=== PATIENT | female | born 1970 | race Caucasian/White ===

== ENCOUNTER → 2019-02-26 | Outpatient (CLI) | payer OTHER ==
[2019-02-26 13:38] LABS: BASO % 0.5 % (0.0-1.0); EOS # 0.2 10^3/uL (0.0-0.50); EOS % 2.9 % (0.0-3.0); HEMATOCRIT 45.2 % (36.0-47.0); LYMPH % 33.7 % (24.0-44.0); MEAN CORPUSCULAR HEMOGLOBIN 32.7 pg (27.0-33.0); MEAN CORPUSCULAR HGB CONC 33.2 g/dl (32.0-36.5); MEAN CORPUSCULAR VOLUME 98.5 fl (80.0-96.0); MONO # 0.6 10^3/uL (0.0-0.8); MONO % 9.9 % (0.0-5.0); NEUTROPHILS # 3.1 10^3/uL (1.8-7.7); NEUTROPHILS % 52.8 % (36.0-66.0); PLATELET COUNT, AUTOMATED 287 10^3/uL (150-450); RED BLOOD COUNT 4.59 10^6/uL (4.00-5.40); WHITE BLOOD COUNT 5.9 10^3/uL (4.0-10.0)
[2019-02-26 13:54] LABS: ALBUMIN 3.5 GM/DL (3.2-5.2); ALT/SGPT 31 U/L (12-78); AMYLASE 27 U/L (25-115); BILIRUBIN,TOTAL 0.4 MG/DL (0.2-1.0); BLOOD UREA NITROGEN 9 MG/DL (7-18); CARBON DIOXIDE LEVEL 28 MEQ/L (21-32); CHLORIDE LEVEL 107 MEQ/L (98-107); CREATININE FOR GFR 0.57 MG/DL (0.55-1.30); FREE T4 1.07 NG/DL (0.76-1.46); GLOMERULAR FILTRATION RATE > 60.0 (>58); GLUCOSE, FASTING 93 MG/DL (70-100); HCG, SERUM QUANTITATIVE < 1.0 MIU/ML; LIPASE 82 U/L (73-393); POTASSIUM SERUM 4.5 MEQ/L (3.5-5.1); SODIUM LEVEL 140 MEQ/L (136-145); TOTAL PROTEIN 7.4 GM/DL (6.4-8.2)
== END ==
LOC: M WUC 10:06
PROVIDERS: ATTEND Physician Assistant
DX: R10.84 Generalized abdominal pain (principal)

== ENCOUNTER → 2019-08-05 | Outpatient (REF) | payer OTHER ==
[2019-08-05 22:50] LABS: CHLAMYDIA DNA AMPLIFICATION NEGATIVE (NEGATIVE); GC DNA AMPLIFICATION NEGATIVE (NEGATIVE)
== END ==
LOC: M LAB REF 09:05
PROVIDERS: ATTEND Physician Assistant
DX: R10.30 Lower abdominal pain, unspecified (principal)

== ENCOUNTER → 2020-04-02 | Outpatient (CLI) | payer OTHER ==
[~2020-04-02] MED LIST: SYNT137T7 PO
== END ==
LOC: M LABSMTC 11:57
PROVIDERS: ATTEND Anesthesiology
DX: Z01.818 Encounter for other preprocedural examination (principal); Z11.59 Encounter for screening for other viral diseases
CPT/HCPCS: C9803; U0003

== ENCOUNTER 2020-04-05 09:16 | Day surgery (SDC) | payer OTHER ==
[~2020-04-05] VITALS: Ht 160 cm; Wt 73.9 kg
[2020-04-05] MEDS ORDERED: NS 1,000 ML IV ONE (09:30)
[2020-04-05] MEDS ORDERED: fentaNYL 100 MCG/2 ML INJECTION (J3010) As Ordered ONE (10:43)
--- NOTE | 2020-04-05 10:57 | ROOR ---
Patient Name: Ursula Celeste Procedure Date: 04/05/2020 10:41 AM Date of : 1970 Age: 49 Room: [facility] Gender: Female Note Status: Finalized Procedure: Upper Endoscopy + Biopsies Indications: Heartburn, Exclusion of Childs's esophagus Providers: Jeffy De Leon MD Referring MD: LUDMILA KNAPP DO Requestmariluz Provider: Medicines: Monitored Anesthesia Care Complications: No immediate complications. Procedure: Pre-Anesthesia Assessment: - The heart rate, respiratory rate, oxygen saturations, blood pressure, adequacy of pulmonary ventilation, and response to care were monitored throughout the procedure. The Endoscope was introduced through the mouth, and advanced to the second part of duodenum. The upper GI endoscopy was accomplished without difficulty. The patient tolerated the procedure well. Findings: The Z-line was variable and was found 41 cm from the incisors. Multiple biopsies were obtained with cold forceps for evaluation to rule out Childs's Esophagus randomly at the gastroesophageal junction. Localized minimal inflammation characterized by congestion (edema) and erosions was found in the gastric antrum. Biopsies were taken with a cold forceps for Helicobacter pylori testing. The exam of the duodenum was otherwise normal. Impression: - Z-line variable, 41 cm from the incisors. - Mucosal changes suspicious for gastritis. Biopsied. - Multiple biopsies were obtained at the gastroesophageal junction. - The examination was otherwise normal. Recommendation: - Patient has a contact number available for emergencies. The signs and symptoms of potential delayed complications were discussed with the patient. Return to normal activities tomorrow. Written discharge instructions were provided to the patient. - High fiber diet. - Discharge patient to home. - Follow an antireflux regimen. - Continue present medications. - Await pathology results. - Telephone GI clinic for pathology results in 1 week. - Return to referring physician. - The findings and recommendations were discussed with the patient. Jeffy De Leon MD Jeffy De Leon MD 04/05/2020 10:57:03 AM Electronically signed by Jeffy De Leon MD Number of Addenda: 0 Note Initiated On: 04/05/2020 10:41 AM Estimated Blood Loss: Estimated blood loss: none.
[2020-04-05] MEDS ORDERED: propofoL 200 MG/20 ML VIAL As Ordered ONE (11:07)
[2020-04-05] MEDS ORDERED: LIDOCAINE 2% 100MG/5ML SDV (FOR ANES.) As Ordered ONE (11:07)
--- NOTE | 2020-04-05 11:12 | ROOR ---
Patient Name: Ursula Celeste Procedure Date: 04/05/2020 10:42 AM Date of : 1970 Age: 49 Room: [facility] Gender: Female Note Status: Finalized Procedure: Total Colonoscopy to Cecum Indications: Screening for colorectal malignant neoplasm Providers: Jeffy De Leon MD Referring MD: LUDMILA KNAPP DO Requesting Provider: Medicines: Monitored Anesthesia Care Complications: No immediate complications. Procedure: Pre-Anesthesia Assessment: - The heart rate, respiratory rate, oxygen saturations, blood pressure, adequacy of pulmonary ventilation, and response to care were monitored throughout the procedure. The Colonoscope was introduced through the anus and advanced to the cecum, identified by appendiceal orifice and ileocecal valve. The colonoscopy was performed without difficulty. The patient tolerated the procedure well. The quality of the bowel preparation was excellent. Findings: The perianal and digital rectal examinations were normal. Non-bleeding internal hemorrhoids were found during retroflexion. The hemorrhoids were small and Grade I (internal hemorrhoids that do not prolapse). A few small-mouthed diverticula were found in the recto-sigmoid colon. The exam was otherwise without abnormality on direct and retroflexion views. Impression: - Non-bleeding internal hemorrhoids. - Diverticulosis in the recto-sigmoid colon. - The examination was otherwise normal on direct and retroflexion views. - No specimens collected. - The exam was otherwise normal to the cecum. Recommendation: - Patient has a contact number available for emergencies. The signs and symptoms of potential delayed complications were discussed with the patient. Return to normal activities tomorrow. Written discharge instructions were provided to the patient. - High fiber diet. - Discharge patient to home. - Continue present medications. - Repeat colonoscopy in 10 years for screening purposes. - Return to referring physician. - The findings and recommendations were discussed with the patient. Jeffy De Leon MD Jeffy De Leon MD 04/05/2020 11:11:56 AM Electronically signed by Jeffy De Leon MD Number of Addenda: 0 Note Initiated On: 04/05/2020 10:42 AM Estimated Blood Loss: Estimated blood loss: none.
[2020-04-05 11:40] VITALS: BP 177/87
== END 2020-04-05 11:56 | disposition home or self-care (01) ==
LOC: M OPP 09:16
PROVIDERS: ATTEND Internal Medicine Gastroenterology
DX: Z12.11 Encounter for screening for malignant neoplasm of colon (principal); K57.30 Diverticulosis of large intestine without perforation or abscess without bleeding; K64.0 First degree hemorrhoids; K22.8 Other specified diseases of esophagus; K31.89 Other diseases of stomach and duodenum; K21.9 Gastro-esophageal reflux disease without esophagitis; R12 Heartburn; E03.9 Hypothyroidism, unspecified; Z79.899 Other long term (current) drug therapy; Z88.0 Allergy status to penicillin; Z91.018 Allergy to other foods; Z87.891 Personal history of nicotine dependence
CPT/HCPCS: 43239; 45378; 88305; J3010

== ENCOUNTER → 2020-04-29 | Emergency (ER) | payer OTHER | END | disposition left against medical advice (07) | LOC: M ED 22:35 | DX: Z53.21 Procedure and treatment not carried out due to patient leaving prior to being seen by health care provider (principal) ==

== ENCOUNTER 2020-06-12 12:19 | Emergency (ER) | payer OTHER ==
[~2020-06-12] VITALS: Ht 160 cm; Wt 71.9 kg
[2020-06-12 13:15] LABS: BASO # 0.1 10^3/uL (0.0-0.2); BASO % 0.8 % (0.0-1.0); EOS # 0.2 10^3/uL (0.0-0.5); EOS % 2.9 % (0.0-3.0); HEMATOCRIT 48.2 % (36.0-47.0); HEMOGLOBIN 15.7 g/dl (12.0-15.5); LYMPH % 30.5 % (24.0-44.0); MEAN CORPUSCULAR HEMOGLOBIN 31.9 pg (27.0-33.0); MEAN CORPUSCULAR HGB CONC 32.6 g/dl (32.0-36.5); MONO # 0.6 10^3/uL (0.0-0.8); MONO % 8.5 % (0.0-5.0); NEUTROPHILS # 3.7 10^3/uL (1.5-8.5); NEUTROPHILS % 57.1 % (36.0-66.0); PLATELET COUNT, AUTOMATED 324 10^3/uL (150-450); RED BLOOD COUNT 4.92 10^6/uL (4.00-5.40); WHITE BLOOD COUNT 6.5 10^3/uL (4.0-10.0)
[2020-06-12 13:56] VITALS: BP 159/88
== END 2020-06-12 14:14 | disposition home or self-care (01) ==
LOC: M ED 12:19
DX: N93.9 Abnormal uterine and vaginal bleeding, unspecified (principal); E03.9 Hypothyroidism, unspecified; Z88.0 Allergy status to penicillin; Z79.890 Hormone replacement therapy

== ENCOUNTER 2020-11-17 12:36 | Emergency (ER) | payer OTHER ==
[~2020-11-17] VITALS: Ht 160 cm; Wt 72.9 kg
--- OUTSIDE RECORDS SUMMARY | 2020-11-17 12:45 | CCD | Continuity of Care Document ---
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 Name Role Phone Simona Jimenez MD Unavailable Unavailable Allergies, Adverse Reactions, Alerts Substance Reaction Status Criticality Penicillins Active No Information Medications Medication Instructions Dosage Effective Dates (start - stop) Sta tus Comments Tirosint 137 mcg capsule take 1 capsule by oral route every day 13 7 MCG - Active Problems Condition Effective Dates (start - stop) Clinical Status C omments Body mass index (BMI) 33.0-33.9, adult - Other sex counseling Human immunodeficiency virus [HIV] counseling Encounter for oth general cnsl and advice on contraception Encntr for hospital cna exam (general) (routine) w/o abn findings Encounter for test, result negative Encntr for hospital cna exam (general) (routine) w/o abn findings Encounter for screening for human papillomavirus (HPV) Encounter for screening for malignant neoplasm of cervix Encounter for oth general cnsl and advice on contraception Encounter for oth screening for malignant neoplasm of breast Human immunodeficiency virus [HIV] counseling Encounter for test, result negative Encntr screen for infections w sexl mode of transmiss High risk heterosexual behavior HPV - 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 [address] [place], [place], [id number], . tel:[phone] [facility], [address] [place] [address], [id number], [place] tel:[phone] [facility] Other sex counselin Martín immunodeficiency virus [HIV] counselingEncounter for oth general cnsl and advice on contraceptionEncntr for hospital cna exam (general) (routine) w/o abn findingsEncounter for test, result negativeBody mass index (BMI) 33.0- 33.9, adult [place]. [address] [place] [address], [id number], . tel:[phone] Referring Provider: Quiana Pratt, [address] [place] [address], [id number]. tel:[phone] [facility], [address] [place] [address], [id number], tel:[phone] [facility] Encntr for hospital cna exam (general) (routine) w/o abn findingsEncounter for screening for human papillomavirus (HPV)Encounter for screening for malignant neoplasm of cervixEncounter for oth general cnsl and advice on contraceptionEncounter for oth screening for malignant neoplasm of breastHuman immunodeficiency virus [HIV] counselingEncounter for test, result negativeEncntr screen for infections w sexl mode of transmissHigh risk heterosexual behavior Latia Smith. [address] [place] [address], [id number]. tel:[phone] Referring Provider: Sarah Jeffery, [address] [place] [address], [id number]. tel:[phone] Family History Family Member Diagnosis Age At Onset 1st degree relative No hx of venous thromboembolism 1st degree relative No hx of osteoporosis Mother Coronary heart disease before age 65 Brother Coronary heart disease before age 55 40 Mother Thyroid disorder Mother Heart disease Mother Cancer, breast 45 Brother Coronary heart disease before age 55 Mother Coronary heart disease before age 65 40 Mother Cancer, breast Mother Diabetes mellitus Immunizations Vaccine Date Status Comments No Information Payers Payer name Insurance type Covered green party ID Authorization(s ) [id number] Social History Type Description Quantity Date Captured Comments Alcohol Use Details Unknown Caffeine Use Details Unknown Tobacco Use Status No Information Smoking Status Former smoker Sex Female Vital Signs Date / Time: Height Weight BMI Pulse Rate Blood Pressure Temperatu re Respiratory Rate Body Surface Area Head Circumference BMI percentile Pulse Ox In haled Ox No Information Chief Complaint And Reason For Visit No Information Reason For Referral Reason For Referral No Information Plan Of Treatment Date Type Action Status Goal Dietary management education, gu idance, and counseling completed History Of Present Illness Encounter Date Complaint History Of Present I llness No Information Functional Status Date Functional Assessment No Information Medications Administered Medication Instructions Dosage Effective Dates (start - stop) Sta tus Comments No Information Instructions Date Instruction Additional Informati on Dietary management education, guidance, and counseling Related to Body mass index (BMI) 33.0-33.9, adult Assessments Type Assessment Date No Information Goals Health Concern Goal Type Priority Status Date No Information Medical Equipment Description Device [place] Device Identifier Effective Natanael es (start - stop) Status No Information Mental Status Date Cognitive Assessment No Information Health Concerns Observation Date No Information Concern Status Date No Information Physical Examination Exam Findings Details No Information
--- OUTSIDE RECORDS SUMMARY | 2020-11-17 12:45 | CCD ---
Author Author [facility] Organization Formerly [facility] Address [address] [place] [address] Phone Care Team Providers Care Care Management Specialist Name Role Phone Ludimla Weeks DO, PP [phone] Diego Gonsalez, SKIRT MAKER Unavailable [phone] Eliseo SORIANO, Japanese Unavailable [phone] Reason for Referral No Reason for Referral Recorded Problems Includes: Active, inactive, and resolved Problems All Visits Effective Date(s) Provider Condition Stat us Contact Dermatitis 08/26/2020 Cyril Rashad DIGGS Active Mammogram Inconclusive Due To Dense Breasts 04/16/2020 Steve Gupta DO Active Note: pt needs yearly sono a nd mammo Childs's Esophagus 04/08/2020 Ludmila Weeks DO Active Note: seen on EGD 04/05/20 Gastritis 04/08/2020 Ludmila Weeks DO Active Note: seen on EGD 04/05/20 Hemorrhoids Internal 04/08/2020 Ludmila Weeks DO Active Note: seen on colonoscopy Encounter for screening for malignant neoplasm of colon 03/24 Ludmila Weeks DO Active Note: last colonoscopy ; needs repeat in 10 years Dysplastic Nevus 03/09/2020 Ludmila Weeks DO Active Scabies 03/09/2020 Ludmila Samuels Ray DO Active Esophageal Reflux 11/24/2019 Ludmilatoro Weeks DO Active Anxiety Disorder Nos 02/28/2019 Ludmila Weeks DO Active Visit For: Screening Exam Malignant Neoplasm Breast 11/27/2017 Ludmila Weeks DO Active Screen Malignant Neoplasm Cervix 05/10/2017 Lara Palmer P Active Note: ; last pap smear ; HPV + Coronary Artery Disease 05/09/2016 Ludmila Weeks DO Active Note: exercise stress test o n 05/08/16 showed ischemia but no infarction; will be managed medically by cardiology; neg exercise stress test 06/22/20 Sprain Back 01/10/2016 - 02/28/2019 Ludmila Weeks DO Resolved Note: bent lifting a movers jessi and felt a pull/pain in paraspinal muscles. Noticed bruising over the sprained muscles- mildly tender on exam;; good rom. P: reassure. Activity as tolerated. Obesity 10/27/2015 Ludmila L Ray DO Active Vitamin D Deficiency 08/17/2015 Ludmila L Ray DO Active Arthralgia 04/08/2015 Ludmila L Ray DO Active Hearing Loss 04/08/2015 Ludmila L Ray DO Active Anaphylaxis 04/08/2015 Ludmila L Ray DO Active Note: PCN, strawberries and/ or cranberries?? Hyperlipidemia 04/08/2015 Ludmila L Ray DO Active Depression 02/20/2013 - 04/08/2015 Ludmila L Ray DO Resolved Note: Improved Gerd 05/24/2010 Ludmila L Ray DO Active Note: Unchanged Anxiety Disorder Due To General Medical Condition 04/12/2010 - 04/08/2015 Ludmila L Ray DO Resolved Note: Unchanged - 09/2014 -- pt admits to anxiety but refuses need for medications; feels she can control on her own with exercise, work things through on her own Hypertension (systemic) 04/12/2010 - 04/08/2015 Ludmila L Ray DO Resolved Note: Unchanged - Advised lo w sodium, low cholesterol diet - Last cardiac eval on 10-13-[address] Bustillo. Advised diet and exercise. FUP in 1 month. Continue current medications STRESS ECHO NORMAL 10-27-10. 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 Exam Wi th or without Pap Note: Please schedule patient with NURSING SERVICE ADMINISTRATOR i [facility] to establish for routine NURSING SERVICE ADMINISTRATOR care; [facility] Audiology Unspecified Hearing Loss Note: Please schedule patient with provi krunal Cardiology Chest pain, unspecif ied Note: Please schedule patient with provi krunal please refer for chest pain with abnl EKG. Family hx of CAD. 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 Note: Please schedule patient with provi krunal; prefers [place], for eval of mole near right ear lobe on face Future Appointments Date Time Location Provider Chronic Disease Follow-up 09/22/2020 11:00AM [facility] Ludmila Weeks DO Findings Encounter Date Instructions for patient Physical appe arance along with subjective complaint is consistent with possible contact dermatitis Avoid putting on make-up Start taking either ceterizine or loratidine If eye lids remain very itchy then try OTC hydrocortisone cream but make sure to not get in to your eyes If symptoms clear up in the next few days then it is most likely contact dermatitis, if symptoms do not clear up by sunday then you need to make an appointment to come in to the office in order to be physically seen for further assessment f/u at scheduled appontment of 09/22/30 unless symptoms do not resolve in the next few days Acute Telehealth Zoom with Cyril DIGGS 08/26/2020 Ordered return to the clinic if condition worsens or n ew symptoms arise Acute Telehealth Zoom with Cyril DIGGS 08/26/2020 Ordered Clinical summary transmitted to referring provider electronically with reasonable certainty of receipt or receiving provider electronically through [facility] Telehealth FaceTime with Lara Palmer NP 01/14/2020 Return to the clinic if condition worsens or new sympt oms arise Primary Care Telehealth FaceTime with Lara Palmer NP 01/14/2020 Ordered Clinical summary transmitted to referring provider electronically with reasonable certainty of receipt or receiving provider electronically through [facility] Walk-In with Ludmila Weeks DO 11/24/2019 Return to the clinic if condition worsens or new sympt oms arise Walk-In with Ludmila Weeks DO 11/24/2019 Ordered Clinical summary transmitted to referring provider electronically with reasonable certainty of receipt or receiving provider electronically through [facility] Chronic Disease Follow-up with Ludmila Abril Ray DO 09/05/2019 Return to the clinic if condition worsens or new sympt oms arise Chronic Disease Follow-up with Ludmila Abril Ray DO 09/05/2019 Instructions for patient Same Day Acute with Gisele Palmer P 05/12/2019 Ordered Clinical summary transmitted to referring provider electronically or receiving provider electronically through [employer] [facility] Same Day Acute with Gisele Molina CALKER 05/12/2019 Ordered follow-up visit Same Day Acute with Gisele Molina NP 05/12/2019 Ordered return to the clinic if condition worsens or n ew symptoms arise Same Day Acute with Gisele Molina NP 05/12/2019 Ordered Clinical summary transmitted to referring provider electronically or receiving provider electronically through [facility] Medication Follow-up with Ludmila Abril Weeks DO 02/28/2019 Return to the clinic if condition worsens or new sympt oms arise Medication Follow-up with Ludmila Abril Weeks DO 02/28/2019 Ordered Clinical summary transmitted to referring provider electronically or receiving provider electronically through [employer] Walk-In with Ludmila Abril Weeks DO 07/09/2018 Return to the clinic if condition worsens or new sympt oms arise Walk-In with Ludmila Weeks DO 07/09/2018 Ordered Clinical summary transmitted to referring provider electronically or receiving provider electronically through [employer] [facility] AHR with Ludmila Weeks DO 11/27/2017 Ordered Clinical summary transmitted to referring provider electronically or receiving provider electronically through [employer] [facility] Walk-In with Jojo Jack NP 11/08/2017 Ordered disposition - Patient or carecinthia childress was instructed in use of antipyretics and decongestants. Also, the patient is to return if there is persistnece of fever for more than 48 hours, pain or other new significant symptoms. Mucinex and tylenol prn Walk-In with Jojo Jack NP 11/08/2017 Ordered return to the clinic if condition worsens or n ew symptoms arise Walk-In with Jojo Jack NP 11/08/2017 Ordered Transition in care, clinical sum gisele provided electronically through [employer] [facility] Chronic Disease Follow-up with Ludmila Weeks DO 05/10/2017 Return to the clinic if condition worsens or new sympt oms arise Chronic Disease Follow-up with Ludmila Weeks DO 05/10/2017 Instructions for patient GET YOUR BL OODWORK DONE ORDERED BY DR. LUDMILA WEEKS. MAKE SURE THAT YOU KEEP YOUR FOLLOW UP APPOINTMENT WITH DR. WEEKS. IF YOU DEVELOP ANY CHEST PAIN THAT DOES NOT GO AWAY, CALL 911. Walk-In with Gisele Rosario NP 04/18/2016 Ordered return to the clinic if condition worsens or n ew symptoms arise Walk-In with Gisele Rosario NP 04/18/2016 Return to the clinic if condition worsens or new sympt oms arise Same Day Acute with Han Adams MD 01/10/2016 Return to the clinic if condition worsens or new sympt oms arise Chronic Disease Follow-up with Ludmila Weeks DO 10/27/2015 no added salt in diet stop taking blo od pressure at home for now keep f/u appt with PCP pt verbalizes agreement with plan of care Walk-In with Nancy Bird NP 10/20/2015 Ordered return to the clinic if condition worsens or n ew symptoms arise Walk-In with Nancy Bird NP 10/20/2015 Return to the clinic if condition worsens or new sympt oms arise Establish Care with Ludmila Weeks DO 04/08/2015 Return to the clinic if condition worsens or new sympt oms arise Medication Follow-up with Mariana Solorzano NP 10/15/2014 Return to the clinic if condition worsens or new sympt oms arise Establish Care with Mariana Solorzano NP 10/15/2013 PLEASE GET YOUR BLOODWORK DONE DISC USSED. MAKE SURE YOU MAKE AN APPOINTMENT TO ESTABLISH CARE WITH ANOTHER PROVIDER HERE Walk-In with Gisele Rosario NP 09/02/2013 Ordered return to the clinic if condition worsens or n ew symptoms arise Walk-In with Gisele Rosario NP 09/02/2013 Return to the clinic if condition worsens or new sympt oms arise Develop Walk-In with Gisele Rosario NP 09/02/2013 Ordered return to the clinic if condition worsens or n ew symptoms arise M Same Day with Han Adams MD 08/30/2013 Low sodium, Low cholesterol diet advis ed Continue exercise Continue thyroid medication FUP in 3months Medication Follow-up with Courtney palmer NP 02/18/2013 Ordered follow-up visit 4 months Medication Follow-up with Courtney Hernandez NP 02/18/2013 Ordered return to the clinic if condition worsens or n ew symptoms arise Medication Follow-up with Courtney Hernandez NP 02/18/2013 Labs as ordered Script for mammo gi adrián to patient [facility] Continue diet and exercise. RTO in 3 months Medication Refill with Courtney Hernandez NP 11/19/2012 Ordered return to the clinic if condition worsens or n ew symptoms arise Medication Refill with Courtney Hernandez NP 11/19/2012 I have spent 30 minutes with allyson hunter benítez in regards to her anxiety and depression. I have recommended counseling but she refuses. She is not interested in anti-depressants at this time. She has her sister for support and feels like she can get through this on her own. I have given her a script to have fasting labs completed prior to next visit. Continue current meds. FUP in 3 months See updated prob list for additional details of todays visit 30 minutes with Courtney Hernandez NP 06/20/2012 Ordered follow-up visit 3 months 30 minutes with Courtney Hernandez NP 06/20/2012 Ordered return to the clinic if condition worsens or n ew symptoms arise 30 minutes with Courtney Hernandez NP 06/20/2012 Denies any need for anxiety medication s at this time- states she can usually get calmed down on own by going for walks or getting out of house. Patient encouraged to continue relaxation techniques. Patient will get bloodwork done and will be seen back in 6 months, sooner if need arises. Instructed that if her sinus symptoms do not improve over next 5-7 days or she begins to develop symptoms of green/yellow nasal drainage or fever >100.5 to call and come back for appt. See updated prob list for details of todays visit M 20 Minutes with Courtney Hernandez NP 10/31/2011 Ordered follow-up visit M 20 Minutes with Courtney Hernandez NP 10/31/2011 Ordered return to the clinic if condition worsens or n ew symptoms arise M 20 Minutes with Courtney Hernandez NP 10/31/2011 WILL INCREASE SYNTHROID AND REDRAW TS H IN 6 WEEKS. CONTINUE FISH OIL 1000 MG PO DAILY CONTINUE TO MONITER DIET AND INCREASE EXERCISE. ADVISED TO WEAR HARD SOLED SHOE. PATIENT DOES NOT WANT X-RAY AT THIS TIME. ADVSIED TO USE IBUPROFEN PRN PAIN. CALL THE OFFICE IF SYMPTOMS WORSEN OR DO NOT IMPROVE M 20 Minutes with Courtney Hernandez NP 05/04/2011 Ordered follow-up visit 6 MONTHS M 20 Minutes with Courtney Hernandez NP 05/04/2011 Ordered return to the clinic if condition worsens or n ew symptoms arise M 20 Minutes with Courtney Hernandez NP 05/04/2011 I believe that Ursula's left chest wa ll pain is musculoskeletal as it seems to be improving over the past week. I advised Ursula to start Motrin 600 mg PO TID x 5 days and apply heat to the left chest wall for 20 minutes four times per day. I will refer Ursula to cardiology for a work up due to her history of hypertension, past smoking history, obesity as well as family history of heart d isease. Ursula will call the office if left chest pain does not continue to improve. SHe is aware that if she develops severe chest pain, sob, diaphoresis etc she should call 911 and report to the emergency room 30 minutes with Courtney Hernandez NP 09/30/2010 Ordered follow-up visit 6 weeks as scheduled 30 minut es with Courtney Hernandez NP 09/30/2010 Ordered return to the clinic if condition worsens or n ew symptoms arise 30 minutes with Courtney Hernandez NP 09/30/2010 Monitor diet and increase exercise. New script for TSH given to patient so that results maximilian be CC to me from [facility]. I will review TSH when available and adjust meds if necessary M 20 Minutes with Courtney Hernandez NP 09/09/2010 Ordered follow-up visit M 20 Minutes with Courtney Hernandez NP 09/09/2010 Ordered return to the clinic if condition worsens or n ew symptoms arise M 20 Minutes with Courtney Hernandez NP 09/09/2010 Renew Epipen. GERD- stay upright f or at least 30 minutes after eating. Avoid spicy foods. Constipation - Increase fluids. Start using a stool softener daily. Calloused heels - Suggested Pumice stone and wrapping feet in vaseline at night. Avoid flip flops when working. Will call patient with TSH results from today when available. Patient requests that a message be left on her cell [phone]. If a change is necessary with thyroid medication I will call into [facility] in [place], 30 minutes with Courtney Hernandez NP 05/23/2010 Obtain blood work as ordered Monito r blood pressure at home with given blood pressure card. Refer to Endocrinology. Discuss pap and mammo at next visit RTO in 1 week to follow up on labs and well women care 30 minutes with Matilde Molina NP 04/12/2010 Ordered a lipid profile 30 minutes with Matilde Molina NP 04/12/2010 Ordered CBC CMP 30 minutes with Matilde Molina NP 03/25 Ordered serum TSH level 30 minutes with Matilde Molina NP 04/12/2010 Assessments Includes: Assessments for all patient encounters Findings Encounter Date Contact dermatitis Acute Telehealth Zoom with Cyril DIGGS 08/26/2020 Assessment of mammogram inconclusive due to dense mary carmen sts Referral Order with Ludmila Weeks DO 04/16/2020 Assessment of visit for: screening for m alignant breast neoplasm Patient was advised that she needs to schedule herself for a mammogram. We will mail her an order for the mammogram and she can have it done at her earliest convenience Primary Care Telehealth FaceTime with Ludmila Weeks DO 03/09/2020 Coronary artery disease Patient had a s lightly abnormal stress test 4 years ago. She is completely asymptomatic. I advised that she have follow-up with cardiology for further evaluation Primary Care Telehealth FaceTime with Aranza Weeks DO 03/09/2020 Dysplastic nevus I advised that the mol e near patient's right earlobe is suspicious for possible skin cancer. I recommended a referral to dermatology for biopsy and evaluation Primary Care Telehealth FaceTime with Ludmila Weeks DO 03/09/2020 Esophageal reflux Patient's reflux symp toms have improved with decrease stress in her life, and weight loss and dietary changes and a change in her eating habits such as not eating late at night anymore. She rarely requires omeprazole now. She did have to reschedule her GI appointment from the end of January to the beginning of March due to work conflicts Primary Care Telehealth FaceTime with Ludmila Weeks DO 03/09/2020 Hypothyroidism On replacement therapy. Patient is due to have lab work which has been ordered. I requested the patient have her lab work done. Patient has a long history of noncompliance with medical appointments and lab work orders Primary Care Telehealth FaceTime with Ludmila Weeks DO 03/09/2020 Scabies I advised treatment with permet hrin topically. I instructed patient on how to apply this medication and to leave it on for 8 hours before washing it off. Patient was advised if the itching and rash do not completely resolve within 1 week of after using the topical permethrin that she contact my office. Greater than 40 minutes video conferencing with patient today due to the coronavirus pandemic Primary Care Telehealth FaceTime with Ludmila Weeks DO 03/09/2020 Impetigo Primary Care Telehealth FaceTime with Argelia Palmer NP 01/14/2020 Esophageal reflux I advised low acid diet. I advised to discontinue ranitidine and start omeprazole 40 mg twice daily for 2 weeks then decrease the dose to 40 mg once a day for 2 weeks. I recommended lab work today to check for anemia to make sure there is no GI bleed. I recommended testing for H. pylori. I recommended she see GI for an upper endoscopy procedure to look for a cause for severe reflux symptoms and to rule out a possible stomach ulcer. I recommended she call my office if she is not feeling any better in 2 weeks or if she develops any worsening epigastric pain Walk-In with Ludmila Weeks DO 11/24/2019 Hyperlipidemia Chronic Disease Follow-up with Ludmila Weeks DO 09/05/2019 Hypothyroidism Chronic Disease Follow-up with Ludmila Weeks DO 09/05/2019 Screen malignant neoplasm cervix Pat ient was asked to have fasting lab work done. She is on thyroid replacement therapy and needs her thyroid levels repeated. We will try to request her last Pap smear that [facility] in [place]. She was again reminded to have her mammogram done which she states she already has an order for. She requested prescription strength ibuprofen for headache she gets usually about once a month near the time of her period. She states that ibuprofen usually takes care of it Chronic Disease Follow-up with Ludmila Weeks DO 019 Anxiety disorder NOS Same Day Acute with Gisele Molina NP GERD Same Day Acute with Gisele Molina CALKER Hypothyroidism Same Day Acute with Wilma Jesse KAUFFMAN Palpitations Same Day Acute with Gisele Valencia Jesse KAUFFMAN Anxiety disorder NOS Patient is under q uite a bit of stress recently. She agrees that it is related to her work and her current family situation with her ex-. She believes that it will resolve. She is currently looking for another job. She does not want any medication for her anxiety at this point. She will let me know if her symptoms do not resolve on their own in the short future Medication Follow-up with Ludmila Weeks DO 02/28/2019 Coronary artery disease ; asymptomatic currently Medic ation Follow-up with Ludmila Weeks DO 02/28/2019 GERD clnically resolved, not taking any medications M edication Follow-up with Ludmila Weeks DO 02/28/2019 Hypothyroidism asymptomatic, on thyroid medications. SHe had labs done at urgent care yesterday, which I've requested Medication Follow-up with Ludmila Weeks DO 02/28/2019 Obesity discussed need for weight loss Medication Fol low-up with Ludmila Weeks DO 02/28/2019 Anaphylaxis Patient was advised to h ave her mammogram scheduled as soon as possible. Patient was advised to start back on omeprazole for her acid reflux symptoms and let me know if this is not helping. Patient was advised to make dietary modifications to help keep her cholesterol controlled. Patient was advised to increase her Synthroid dose from 125 mcg daily to 137 mcg daily. She was advised to have her blood work rechecked in 1 month. Patient was given a new prescription for an EpiPen and I reviewed to her how and when to use it Walk-In with Ludmila Weeks DO 07/09/2018 Assessment of visit for: screening for malignant breas t neoplasm Walk-In with Ludmila Weeks DO 07/09/2018 GERD Walk-In with Ludmila Weeks DO 07/09/2018 Hyperlipidemia Walk-In with Ludmila Weeks DO 07/09/2018 Hypothyroidism Walk-In with Ludmila Weeks DO 07/09/2018 Assessment of visit for: screening for m alignant breast neoplasm Patient was advised to schedule and have her mammogram done as soon as possible; patient has not had one since 2014 and her mom had breast cancer AHR with Ludmila Weeks DO 11/27/2017 Hyperlipidemia will repeat labs AHR with Ludmila Weeks DO Hypothyroidism on replacement therapy , will check la bs AHR with Ludmila Weeks DO 11/27/2017 Obesity Discussed need to lose weight AHR with Ludmila Samuels Ray DO 11/27/2017 Visit for: routine adult H&P AHR with Ludmila Weeks DO 2017 Sinusitis Walk-In with Jojo Jack NP 018 Coronary artery disease Patient was adv ised to make an appt with cardiology for follow-up because she has not seen them since last year Chronic Disease Follow- up with Ludmila Samuels Ray 05/10/2017 GERD controlled on omeprazole Chronic Disease Follow-up wit h Ludmila Weeks DO 05/10/2017 Hypothyroidism on thyroid replacement, will check lab s Chronic Disease Follow- up with Ludmila Weeks DO 05/10/2017 GERD I advised patient eat a low acid d iet and increase her omeprazole from 20mg to 40mg daily. I adivsed if this does not help her throat symptoms, to call and let me know in 2 weeks AHR with Ludmila Weeks 04/28/2016 Hypothyroidism on thyroid replacment therapy AHR with Bisi carolyn Samuels Micky AGRAWAL 04/28/2016 Visit for: routine adult H&P AHR with Ludmila Samuels Micky AGRAWAL 2015 Vitamin D deficiency I advised Vit D replacement once weekly AHR with Ludmila Weeks DO 04/28/2016 Hypothyroidism Chart Update with Ludmila Weeks DO 2015 Abnormal electrocardiogram Walk-In with Gisele griffin NP 04/18/2016 Chest pain Walk-In with Gisele Rosario NP 04/18/2016 Hypothyroidism Walk-In with Gisele Rosario NP 04/18/2016 Overanxious disorder Walk-In with Gisele Rosario NP 04/18/2016 Hypothyroidism Chart Update with Ludmila Samuels Micky AGRAWAL 2015 Vitamin D deficiency Chart Update with Ludmila L Ray DO 02/16 Lower back sprain Same Day Acute with Han Adams MD Sprain of the back bent lifting a manager treasury s jessi and felt a pull/pain in paraspinal muscles. Noticed bruising over the sprained muscles- mildly tender on exam;; good rom. P: reassure. Activity as tolerated Same Day Acute with Han Adams MD 01/10/2016 Bronchitis Walk-In with Martinez Valencia Emily BASSETT-C 12/23 Sinusitis Walk-In with Martinez Valencia Emily COOPER 12/23 GERD stable Chronic Disease Follow-up with Ludmila Samuels Micky AGRAWAL 10/27/2015 Hyperlipidemia well controlled Chronic Disease Follow-up wi th Ludmila Samuels Micky AGRAWAL 10/27/2015 Hypothyroidism well controlled on thyro id replacement therapy I reassured patient that it is OK for her heart rate to go up when exercising. I advised her that if it went up to 140-150 that would be ok. I advised her that if she experiences any chest pain while exercising, she needs to stop right away and call 911 and go to the emergency room Chronic Disease Follow-up with Ludmila Abril Weeks DO 10/27/2015 Obesity Chronic Disease Follow-up with Ludmila Samuels Micky AGRAWAL 10/27/2015 Vitamin D deficiency will check labs next visit Chron ic Disease Follow-up with Ludmila Abril Weeks DO 10/27/2015 Isolated elevated blood pressure reading Walk-In with Joelle Bird NP 10/20/2015 Vitamin D deficiency Chart Update with Ludmila Samuels Micky DO 08/17 GERD Chart Update with Ludmila Weeks DO 2014 Hyperlipidemia Chart Update with Ludmila Weeks DO 2014 Hypothyroidism Chart Update with Ludmila Abril Weeks DO 2014 Anaphylaxis see below. 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 Establish Care with Ludmila L Micky AGRAWAL 04/08/2015 GERD controlled on current medicaiton Establish Care with A art Weeks DO 04/08/2015 Hearing loss advised referal to audiology for hearing eval Establish Care with Ludmila Abril Weeks DO 04/08/2015 Hyperlipidemia will check labs Establish Care with Ludmila Weeks DO 04/08/2015 Hypothyroidism asymptomatic, will check thyroid levels and patient will need refill of her medicaiton after her blood work comes back Establish Care with Ludmila Weeks DO 04/08/2015 Anxiety disorder due to general medical condition Medi cation Follow-up with Mariana Solorzano NP 10/15/2014 GERD Medication Follow-up with Mariana Solorzano NP 10/15/2014 Hypertension Medication Follow-up with Mariana Solorzano NP 10/15/2014 Hypothyroidism Medication Follow-up with Mariana Solorzano NP 10/15/2014 Anxiety disorder due to general medical condition Lou pintoish Care with Mariana Solorzano NP 10/15/2013 Assessment of depression Establish Care with Mariana Solorzano NP 10/15/2013 Hypertension Establish Care with Mariana Solorzano NP Hypothyroidism Establish Care with Mariana Solorzano NP Acute pharyngitis streptococcus Walk-In with She Maximilian Rosario NP 09/02/2013 Hypothyroidism Walk-In with Gisele Duron Mich Rosario NP 09/02/2013 Acute viral tonsillitis with bad pain i n throat with swallowing. P: viscous xylocaine gargles, prednisone for just 2 days. Naproxen M Same Day with Han Adams MD 08/30/2013 Depression - pt feels controlled at this time- will c onitnue to moniter Medication Follow-up with Courtney Hernandez CALKER 02/18/2013 GERD Medication Follow-up with Courtney Garciao n CALKER 02/18/2013 Hypothyroidism Medication Follow-up with Courtney Moy Gigo n CALKER 02/18/2013 Anxiety disorder due to general medical condition Medi cation Refill with Courtney Garciaon CALKER 11/19/2012 GERD Medication Refill with Courtney Moy Gigon N P 11/19/2012 Hypertension Medication Refill with Courtney M Gigon N P 11/19/2012 Hypothyroidism Medication Refill with Courtney M Gigon N P 11/19/2012 Anxiety disorder due to general medical condition 30 m inutes with Courtney M Gigon CALKER 06/20/2012 GERD 30 minutes with Courtney M Gigon CALKER 06/20 Hypothyroidism 30 minutes with Courtney M Gigon CALKER 06/20 Generalized anxiety disorder M 20 Minutes with Courtney M Gig on CALKER 10/31/2011 Hyperlipidemia M 20 Minutes with Courtney M Gigon CALKER 03/2012 Hypothyroidism M 20 Minutes with Courtney M Gigon CALKER 03/2012 Hyperlipidemia M 20 Minutes with Courtney M Gigon CALKER 07/2011 Hypothyroidism M 20 Minutes with Courtney M Gigon CALKER 07/2011 Plantar fasciitis M 20 Minutes with Courtney M Gigon CALKER 07/2011 Hypertension 30 minutes with Courtney M Gigon CALKER 09/30 Hypothyroidism 30 minutes with Courtney Hernandez CALKER 09/30 Pectoralis minor sprain 30 minutes with Courtney Hernandez CALKER 0 09/30/2010 Hypothyroidism M 20 Minutes with Courtney Garciaon CALKER Generalized anxiety disorder 30 minutes with Courtney Hernandez CALKER 05/23/2010 GERD 30 minutes with Courtney Garciaon CALKER 05/23 Hypothyroidism 30 minutes with Courtney Hernandez CALKER 05/23 Anxiety disorder due to general medical condition 30 m inutes with Matilde Velezizabel CALKER 04/12/2010 Hypertension 30 minutes with Matilde Patiñoestela CALKER 03/25 Hypothyroidism 30 minutes with Matilde Patiñoestela CALKER 03/25 Instructions Instructions not supported for this document typeNo Instructions Recorded Medical Equipment - Implanted Devices Includes: Current and historical DevicesNo Medical Equipment Recorded Medications Includes: Current and historical Medications Current Medications (continue as prescribed) Synthroid 137 MCG Oral Tablet 08/13/2020 Provider: Lara Palmer NP Diagnosis: Hypothyroidism, unsp ecified Take once a day, DIMA, 1 tablet 30 minutes before breakfast Mupirocin 2% External Ointment 01/14/2020 Provider: Lara Palmer NP Diagnosis: Impetigo, unspecifie d as directed; apply three times daily to affected area for 5 days Ibuprofen 600 MG Oral Tablet 10/07/2019 Provider: Ludmila Weeks DO Diagnosis: as directed; 1 tab PO daily PRN CARRANZA; with food EPINEPHrine 0.3 MG/0.3ML Injection Solution Auto-injector Provider: Ludmila Weeks DO Diagnosis: as directed; 1 vial IM at onset of anaphylaxis, then call 91 [facility] Omeprazole 20MG Oral Tablet Delayed Release 05/12/2019 Provider: Gisele Molina NP Diagnosis: Gastro-esophageal re flux disease without esophagitis once a day Multivitamins Tablet 04/18/2016 Provider: Diagnosis: OTC Past Medications on file Permethrin 5% External Cream 03/09/2020 - 03/10/2020 Provide r: Ludmila Weeks DO Diagnosis: Scabies apply topically from head to soles of fe et, leave on for 8 hours, then rinse off, avoid face and genitals; disp largest bottle Synthroid 137 MCG Oral Tablet 12/09/2019 - 08/13/2020 Provid er: Ludmila Weeks DO Diagnosis: Hypothyroidism, unsp ecified Take once a day, DIMA, 1 tablet 30 minutes before breakfast Ondansetron 8 MG Oral Tablet Disintegrating 11/26/2019 - 05/2020 Provider: Ludmila Weeks DO Diagnosis: three times a day; PRN nausea Omeprazole 40 MG Oral Capsule Delayed Release 11/24/2019 - 0 12/24/2019 Provider: Ludmila Weeks DO Diagnosis: Gastro-esophageal re flux disease without esophagitis as directed; 1 tab PO bid x 14 days, then one tab PO daily Ibuprofen 600 MG Oral Tablet 09/05/2019 - 10/07/2019 Provide r: Ludmila Weeks DO Diagnosis: as directed; 1 tab PO daily PRN CARRANZA; with food raNITIdine HCl 150MG Oral Tablet 05/12/2019 - 09/05/2019 Pro vider: Gisele Molina NP Diagnosis: Gastro-esophageal re flux disease without esophagitis twice a day EPINEPHrine 0.3MG/0.3ML Injection Solution Auto-inject or 02/28/2019 - 09/05/2019 Provider: Ludmila Weeks DO Diagnosis: as directed; 1 vial IM at onset of anaphylaxis, then call 91 1 Synthroid 137MCG Oral Tablet 02/14/2019 - 12/09/2019 Provide r: Han Adams MD Diagnosis: Hypothyroidism, unsp ecified Take once a day, DIMA, 1 tablet 30 minutes before breakfast Synthroid 137 MCG OR TABS 02/14/2019 - 02/28/2019 Provider: Diagnosis: Hypothyroidism, unsp ecified Take once a day, DIMA, 1 tablet 30 minutes before breakfast Synthroid 137MCG Oral Tablet 09/10/2018 - 02/28/2019 Provide r: Ludmila Weeks DO Diagnosis: Hypothyroidism, unsp ecified once a day; DIMA; 1 tab 30 min before breakfast Synthroid 137MCG Oral Tablet 07/09/2018 - 09/10/2018 Provide r: Ludmila Weeks DO Diagnosis: Hypothyroidism, unsp ecified once a day; DIMA; 1 tab 30 min before breakfast EPINEPHrine 0.3MG/0.3ML Injection Solution Auto-inject or 07/09/2018 - 02/28/2019 Provider: Ludmila Weeks DO Diagnosis: as directed; 1 vial IM at onset of anaphylaxis, then call 91 1 Omeprazole 20MG Oral Capsule Delayed Release 07/09/2018 - Provider: Ludmila Weeks DO Diagnosis: 2 once a day Synthroid 125MCG Oral Tablet 07/03/2018 - 09/10/2018 Provide r: Ludmila Weeks DO Diagnosis: once a day Dispense as Written Omeprazole 20MG Oral Capsule Delayed Release 01/30/2018 - Provider: Ludmila Weeks DO Diagnosis: 2 once a day Synthroid 125MCG Oral Tablet 11/12/2017 - 07/03/2018 Provide r: Jojo Jack CALKER Diagnosis: once a day Dispense as Written Biaxin 500MG Oral Tablet 11/08/2017 - 11/27/2017 Provider: Jojo Jack CALKER Diagnosis: twice a day Synthroid 125MCG Oral Tablet 03/29/2017 - 11/12/2017 Provide r: Ludmila Weeks DO Diagnosis: once a day Dispense as Written Synthroid 125 MCG Tablet 08/11/2016 - 03/29/2017 Provider: Ludmila Weeks DO Diagnosis: once a day Dispense as Written EpiPen 2-Enoc 0.3 MG/0.3ML Solution Auto-injector 04/28/2016 - 07/09/2018 Provider: Ludmila Weeks DO Diagnosis: Anaphylactic shock, unspecified, initial encounter as directed; inject IM x 1 at onset of a naphylaxis, then call 911 for emergent transport to closest emergency room Omeprazole 20 MG Capsule, delayed-release 04/28/2016 - 01/30 Provider: Ludmila Weeks DO Diagnosis: 2 once a day Vitamin D3 91234 UNIT Capsule, conventional 04/28/2016 - 02/2018 Provider: Ludmila Weeks DO Diagnosis: Vitamin D deficiency , unspecified as directed ; one tab PO weekly on Sunday Synthroid 125 MCG Tablet 04/20/2016 - 08/11/2016 Provider: Ludmila Weeks DO Diagnosis: once a day Dispense as Written Synthroid 125 MCG Tablet 04/20/2016 - 04/28/2016 Provider: Diagnosis: Dispense as Written Synthroid 125 MCG Tablet 04/20/2016 - 04/20/2016 Provider: Ludmila Weeks DO Diagnosis: once a day Synthroid 137 MCG Tablet 03/21/2016 - 04/28/2016 Provider: Ludmila Weeks DO Diagnosis: TAKE 1 TABLET BY MOUTH EVERY DAY Biaxin 500 MG Tablet 01/03/2016 - 04/28/2016 Provider: Martinez Diaz RPA-C Diagnosis: 1 bid Vitamin D3 97612 UNIT Capsule 08/24/2015 - 04/28/2016 Provid er: Ludmila Abril Weeks DO Diagnosis: as directed; 1 tab PO weekly on Sundays Synthroid 137 MCG Tablet 08/24/2015 - 03/21/2016 Provider: Ludmila Weeks DO Diagnosis: TAKE 1 TABLET BY MOUTH EVERY DAY Vitamin D3 28730 UNIT Capsule 08/20/2015 - 08/24/2015 Provid er: Ludmilatoro Weeks DO Diagnosis: as directed; 1 tab PO weekly on Sundays Synthroid 137 MCG Tablet 05/14/2015 - 08/24/2015 Provider: Ludmila Weeks DO Diagnosis: TAKE 1 TABLET BY MOUTH EVERY DAY Omeprazole 20 MG Capsule, delayed-release 04/08/2015 - 04/28 Provider: Ludmila Weeks DO Diagnosis: once a day EpiPen 2-Enoc 0.3 MG/0.3ML Solution Auto-injector 04/08/2015 - 04/28/2016 Provider: Ludmila Weeks DO Diagnosis: Other Anaphylactic S hock Not Elsewhere Classified as directed; inject IM x 1 at onset of a naphylaxis, then call 911 for emergent transport to closest emergency room Omeprazole 20 MG Capsule, delayed-release 10/29/2014 - 04/08 Provider: Mariana Solorzano NP Diagnosis: once a day Synthroid 137 MCG Tablet 10/15/2014 - 05/14/2015 Provider: Mariana Solorzano NP Diagnosis: TAKE 1 TABLET BY MOUTH EVERY DAY Synthroid 137 MCG OR TABS 09/25/2014 - 10/15/2014 Provider: Ludmila Weeks DO Diagnosis: TAKE 1 TABLET BY MOUTH EVERY DAY Synthroid 137 MCG OR TABS 07/28/2014 - 09/25/2014 Provider: Mariana Solorzano NP Diagnosis: TAKE 1 TABLET BY MOUTH EVERY DAY Synthroid 137 MCG OR TABS 05/26/2014 - 07/28/2014 Provider: Ludmila Weeks DO Diagnosis: DIMA Synthroid 137 MCG OR TABS 04/18/2014 - 05/26/2014 Provider: Han Adams MD Diagnosis: DIMA Synthroid 137 MCG OR TABS 04/17/2014 - 04/17/2014 Provider: Han Adams MD Diagnosis: Synthroid 125 MCG OR TABS 03/19/2014 - 04/17/2014 Provider: Mariana Solorzano NP Diagnosis: Unspecified Acquired Hypothyroidism pt must have DIMA Synthroid 125 MCG OR TABS 01/22/2014 - 03/19/2014 Provider: Mariana Solorzano NP Diagnosis: Unspecified Acquired Hypothyroidism pt must have DIMA EpiPen 2-Enoc 0.3 MG/0.3ML IJ CINDY 12/24/2013 - 11/08/2017 Pr ovider: Mariana Solorzano NP Diagnosis: Allergy, other than to medicinal agents Use as directed - for strawberry / cranberry allergy Synthroid 125 MCG OR TABS 11/26/2013 - 12/24/2013 Provider: Mariana Solorzano NP Diagnosis: Unspecified Acquired Hypothyroidism pt must have DIMA Synthroid 125 MCG OR TABS 10/02/2013 - 11/26/2013 Provider: Mariana Solorzano NP Diagnosis: Unspecified Acquired Hypothyroidism pt must have DIMA Sandoval-Tab 250 MG OR TBEC 09/02/2013 - 10/15/2013 Provider: Gisele Rosario NP Diagnosis: Synthroid 125 MCG OR TABS 09/02/2013 - 10/02/2013 Provider: Mariana Solorzano NP Diagnosis: Unspecified Acquired Hypothyroidism Multivitamins OR TABS 08/30/2013 - 04/18/2016 Provider: Diagnosis: OTC Lidocaine Viscous 2% MT SOLN 08/30/2013 - 10/15/2013 Provide r: Han Adams MD Diagnosis: Tonsillitis, Acute 1 tsp gargle and spit/swallow q 1 - 2 h prn pain; be careful of choking while numbness remains Naproxen 250 MG OR TABS 08/30/2013 - 10/15/2013 Provider: Han Adams MD Diagnosis: Tonsillitis, Acute Take one tablet twice per day as needed-avoid if stomach irr itation// otc predniSONE 10 MG OR TABS 08/30/2013 - 10/15/2013 Provider: Han Adams MD Diagnosis: Tonsillitis, Acute Synthroid 125 MCG OR TABS 03/31/2013 - 10/15/2013 Provider: Courtney Hernandez NP Diagnosis: Unspecified Acquired Hypothyroidism Synthroid 125 MCG OR TABS 02/24/2013 - 03/31/2013 Provider: Courtney Hernandez NP Diagnosis: Multivitamins OR TABS 02/18/2013 - 08/30/2013 Provider: Diagnosis: OTC Synthroid 125 MCG OR TABS 01/22/2013 - 02/24/2013 Provider: Courtney Hernandez NP Diagnosis: Synthroid 125 MCG OR TABS 11/20/2012 - 01/22/2013 Provider: Courtney Hernandez NP Diagnosis: Synthroid 150 MCG OR TABS 11/19/2012 - 11/20/2012 Provider: Courtney Hernandez NP Diagnosis: Unspecified Acquired Hypothyroidism 1 tab po daily EpiPen 2-Enoc 0.3 MG/0.3ML IJ CINDY 11/19/2012 - 12/24/2013 Pr ovider: Courtney Hernandez NP Diagnosis: Allergy, other than to medicinal agents Use as directed - for strawberry / cranberry allergy Synthroid 150 MCG OR TABS 09/10/2012 - 11/19/2012 Provider: Courtney Hernandez NP Diagnosis: Unspecified Acquired Hypothyroidism 1 tab po daily Synthroid 150 MCG OR TABS 06/20/2012 - 09/10/2012 Provider: Courtney Hernandez NP Diagnosis: Unspecified Acquired Hypothyroidism 1 tab po daily Omeprazole 20 MG OR TBEC 06/20/2012 - 10/15/2014 Provider: Courtney Hernandez NP Diagnosis: Esophageal Reflux 1 tab by mouth daily Omeprazole 20 MG OR TBEC 05/14/2012 - 06/20/2012 Provider: Courtney Hernandez NP Diagnosis: Esophageal Reflux 1 tab by mouth daily Synthroid 150 MCG OR TABS 04/24/2012 - 06/20/2012 Provider: Courtney Hernandez NP Diagnosis: Unspecified Acquired Hypothyroidism 1 tab po daily Synthroid 150 MCG OR TABS 11/17/2011 - 04/24/2012 Provider: Courtney Hernandez NP Diagnosis: Unspecified Acquired Hypothyroidism 1 tab po daily Fish Oil 1000 MG OR CAPS 10/31/2011 - 06/20/2012 Provider: Diagnosis: OTC Omeprazole 20 MG OR TBEC 10/31/2011 - 05/14/2012 Provider: Courtney Hernandez NP Diagnosis: Esophageal Reflux 1 tab by mouth daily Multivitamins OR TABS 10/31/2011 - 02/18/2013 Provider: Diagnosis: OTC Synthroid 137 MCG OR TABS 09/27/2011 - 11/17/2011 Provider: Courtney Hernandez NP Diagnosis: Omeprazole 20 MG OR TBEC 05/04/2011 - 10/31/2011 Provider: Courtney Hernandez NP Diagnosis: Esophageal Reflux 1 tab by mouth daily Synthroid 125 MCG OR TABS 05/04/2011 - 09/27/2011 Provider: Courtney Hernandez NP Diagnosis: Unspecified Acquired Hypothyroidism 1 tab po daily Omeprazole 20 MG OR TBEC 03/09/2011 - 05/04/2011 Provider: Courtney Hernandez NP Diagnosis: Esophageal Reflux 1 tab by mouth daily Synthroid 112 MCG OR TABS 11/11/2010 - 05/04/2011 Provider: Courtney Hernandez NP Diagnosis: Unspecified Acquired Hypothyroidism 1 tab by mouth daily Synthroid 112 MCG OR TABS 09/20/2010 - 11/11/2010 Provider: Courtney Hernandez NP Diagnosis: Unspecified Acquired Hypothyroidism 1 tab by mouth daily Omeprazole 20 MG OR TBEC 09/09/2010 - 02/10/2011 Provider: Courtney Hernandez NP Diagnosis: Esophageal Reflux 1 tab by mouth daily Synthroid 100 MCG OR TABS 07/27/2010 - 07/27/2010 Provider: Courtney Hernandez NP Diagnosis: Unspecified Acquired Hypothyroidism 1 tab by mouth daily Synthroid 100 MCG OR TABS 07/27/2010 - 09/20/2010 Provider: Courtney Hernandez NP Diagnosis: Unspecified Acquired Hypothyroidism 1 tab by mouth daily Synthroid 100 MCG OR TABS 07/20/2010 - 07/27/2010 Provider: Courtney Hernandez NP Diagnosis: Synthroid 100 MCG OR TABS 07/19/2010 - 07/20/2010 Provider: Courtney Hernandez NP Diagnosis: Synthroid 75 MCG OR TABS 05/24/2010 - 09/09/2010 Provider: Courtney Hernandez NP Diagnosis: Unspecified Acquired Hypothyroidism one tab by mouth daily Omeprazole 20 MG OR TBEC 05/23/2010 - 09/09/2010 Provider: Courtney Hernandez NP Diagnosis: Esophageal Reflux 1 tab by mouth daily EpiPen 2-Enoc 0.3 MG/0.3ML IJ CINDY 05/23/2010 - 11/19/2012 Pr ovider: Courtney Hernandez NP Diagnosis: Allergy, other than to medicinal agents Use as directed - for strawberry / cranberry allergy Omeprazole 20 MG OR TBEC 05/23/2010 - 05/23/2010 Provider: Courtney Hernandez NP Diagnosis: Esophageal Reflux 1 tab by mouth daily EpiPen 2-Enoc 0.3 MG/0.3ML IJ CINDY 05/23/2010 - 05/23/2010 Pr ovider: Courtney Hernandez CALKER Diagnosis: Allergy, other than to medicinal agents Use as directed - for strawberry / cranberry allergy Synthroid 50 MCG OR TABS 04/18/2010 - 05/24/2010 Provider: Eduardo Barnes DO Diagnosis: Unspecified Acquired Hypothyroidism 1 tab by mouth daily Synthroid 50 MCG OR TABS 04/18/2010 - 04/18/2010 Provider: Eduardo Barnes DO Diagnosis: Unspecified Acquired Hypothyroidism 1 tab by mouth daily Misc. Devices MISC 04/12/2010 - 05/23/2010 Provider: Diagnosis: Wormwood Complex (Calcium 40mg, Stenova Root 200mg, Black Calypso Green 25mg, Wormwood 25mg, Clove Breed 20mg) 2 caps x's 10 days, then off for 5 days, then resume Wheat Germ Oil OR OIL 04/12/2010 - 05/23/2010 Provider: Diagnosis: Spread over scars daily 385mg Misc. Devices MISC 04/12/2010 - 05/23/2010 Provider: Diagnosis: Parotid PMG 358mg Misc. Devices MISC 04/12/2010 - 05/23/2010 Provider: Diagnosis: Antronex(Calcium 40mg/Bovine Liver Fat Extract(Yalcriton) 15 mg) Chlorella 500 MG OR CAPS 04/12/2010 - 05/23/2010 Provider: Diagnosis: Misc. Devices MISC 04/12/2010 - 05/23/2010 Provider: Diagnosis: Cholacol II 1,765mg Immuplex Lozenge NV LO 04/12/2010 - 05/23/2010 Provider: Diagnosis: 538mg Medications Administered Includes: Administered Medications in patient's chartNo Administered Medications Recorded Vital Signs Includes: Vital Signs from 08/26/2019 through 08/26/2020 Vital Name 08/26/2020 10:34A 03/09/2020 02:54P 01/14/2020 03:54P 11/24/2019 02:58P 09/05/2019 03:23P Temp-Temporal 97.5 Pain Level 2 0 0 2 0 Temp-Tympanic (F) 95.4 97.9 97.6 Weight (lb) 173.25 177.0125 179.125 Blood Pressure Sitting L 138/90 144/94 BP Cuff Size Regular Large Pulse Rate-Sitting (bpm) 70 78 Pulse Rhythm Regular Regular Respiration Rate (breaths/min) 18 18 Height (in) 62.5 Body Mass Index (kg/m2) 31.9 Body Surface Area (m2) 1.83 Oxygen Saturation (%) 98 97 Flow Rate (l/min) (None (Room Air)) (None (Room Air)) FiO2 (%) 21 21 Note: pt denies any other vitals.SprinsLPN Phi ght and Temperature obtained by the patient from home today.Pain assessmend done with the patient over the phone. PLewislPN Results Includes: Results from 08/26/2019 through 08/26/2020 CBC w/ Auto Diff [facility] Ordered by Ludmila Weeks DO on 12/01/[address] [place], [address] Collected: 11/24/2019 Reported: 11/24/2019 tel:[phone] BASO # (AUTO) 0.04 3/uL (0.00-0.20) N (Normal) Note: Responsible Observer: BASO # (AUTO ) BASO # (AUTO) 100.1500 (A) BASO % (AUTO) 0.5 % (0.0-2.0) N (Normal) Note: Responsible Observer: BASO % (AUTO ) BASO % (AUTO) 100.1250 (A) EOS # (AUTO) 0.14 3/uL (0.00-1.10) N (Normal) Note: Responsible Observer: EOS # (AUTO) EOS # (AUTO) 100.1450 (A) EOS % (AUTO) 1.9 % (0.0-11.0) N (Normal) Note: Responsible Observer: EOS % (AUTO) EOS % (AUTO) 100.1200 (A) GRAN # (AUTO) 4.30 3/uL (1.50-6.50) N (Normal) Note: Responsible Observer: GRAN # (AUTO ) GRAN #(AUTO) 100.1325 (A) GRAN % (AUTO) 57.2 % (42.0-75.0) N (Normal) Note: Responsible Observer: GRAN % (AUTO ) GRAN % (AUTO) 100.1000 (A) HEMATOCRIT 42.5 % (35.0-46.0) N (Normal) Note: Responsible Observer: HCT HEMATOCR IT 100.0400 (A) HEMOGLOBIN 14.4 G/DL (11.5-15.6) N (Normal) Note: Responsible Observer: HGB HEMOGLOB IN 100.0300 (A) IG # (AUTO) 0.0 3/uL (<0.5) None Note: Responsible Observer: IG # (AUTO) IG # (AUTO) 100.1260 (A) IG % (AUTO) 0.1 % (1.00-5.00) None Note: Responsible Observer: IG % (AUTO) IG % (AUTO) 100.1255 (A) LYMPH # (AUTO) 2.3 k/uL (1.0-5.0) N (Normal) Note: Responsible Observer: LYMPH # (AUT O) LYMPH # (AUTO) 100.1350 (A) LYMPH % (AUTO) 30.9 % (20.0-51.0) N (Normal) Note: Responsible Observer: LYMPH % (AUT O) LYMPH % (AUTO) 100.1100 (A) MCH 31.9 PG (27.0-34.0) N (Normal) Note: Responsible Observer: MCH MCH 100 .0600 (A) MCHC 33.9 G/DL (32-36) N (Normal) Note: Responsible Observer: MCHC MCHC 1 00.0650 (A) MCV 94.0 FL (80.0-100.0) N (Normal) Note: Responsible Observer: MCV MCV 100 .0550 (A) MONO # (AUTO) 0.71 k/uL (0.20-1.50) N (Normal) Note: Responsible Observer: MONO # (AUTO ) MONO # (AUTO) 100.1400 (A) MONO % (AUTO) 9.4 % (2.0-15.0) N (Normal) Note: Responsible Observer: MONO % (AUTO ) MONO% (AUTO) 100.1150 (A) MPV 10.6 FL (8.7-13.2) N (Normal) Note: Responsible Observer: MPV MPV 100 .0950 (A) PLATELET COUNT 342 3/uL (130-400) N (Normal) Note: Responsible Observer: PLT PLATELET COUNT 100.0850 (A) RED BLOOD COUNT 4.52 6/uL (3.90-5.20) N (Normal) Note: Responsible Observer: RBC RED BLOO D COUNT 100.0250 (A) RDW 11.9 % (11.5-14.5) N (Normal) Note: Responsible Observer: RDW RDW 100 .0700 (A) WHITE BLOOD COUNT 7.52 3/uL (4.00-10.50) N (Normal) Note: Responsible Observer: WBC WHITE BL OOD COUNT 100.0150 (A) Reviewed by Ludmila Weeks DO on 0; All test results are final unless otherwise noted. COMPREHENSIVE METABOLIC PANEL [facility] Ordered by Ludmila Weeks DO on 12/01/2019 [address] [facility], [place], [address] Collected: 11/24/2019 Reported: 11/24/2019 tel:[phone] ALB/GLOB RATIO 2.0 G/DL (1.0-2.7) N (Normal) Note: Responsible Observer: A/G RATIO AL B/GLOB RATIO 300.4100 (A) ALBUMIN 4.5 G/DL (3.0-5.1) N (Normal) Note: Responsible Observer: ALB ALBUMIN 300.3900 (A) ALKALINE PHOSPHATASE 63 U/L (40-140) N (Normal) Note: Responsible Observer: ALK PHOS ALK [place] PHOSPHATASE 300.3110 (A) ALT 25 U/L (5-48) N (Normal) Note: Responsible Observer: ALT/SGPT ALT 300.3100 (A) AST 20 U/L (5-40) N (Normal) Note: Responsible Observer: AST/SGOT AST 300.3050 (A) BUN/CREAT RATIO 20 (8-36) N (Normal) Note: Responsible Observer: BUN/CREAT RA [place] BUN/CREAT RATIO 300.0450 (A) BILIRUBIN,TOTAL 0.3 MG/DL (0.1-1.3) N (Normal) Note: Responsible Observer: TOTAL BILI T OTAL BILIRUBIN 300.2700 (A) BLOOD UREA NITRO 14 MG/DL (7-25) N (Normal) Note: Responsible Observer: BUN BLOOD UR EA NITROGEN 300.0350 (A) CA 9.2 MG/DL (8.7-10.5) N (Normal) Note: Responsible Observer: CA CALCIUM 300.2200 (A) CHLORIDE 105 MEQ/L (94-110) N (Normal) Note: Responsible Observer: CL CHLORIDE 300.0200 (A) CARBON DIOXIDE 25 MEQ/L (22-33) N (Normal) Note: Responsible Observer: CO2 CARBON D IOXIDE 300.0250 (A) CREATININE 0.7 MG/DL (0.6-1.4) N (Normal) Note: Responsible Observer: CREAT CREATI NINE 300.0400 (A) ANION GAP 14 (5-16) N (Normal) Note: Responsible Observer: ANION GAP AN ION GAP 300.0300 (A) GFR 88.6 ML/MIN None Note: Stage G2 - Mildly decreased kidne y function The GFR is an estimate of the Glomerular Filtration Rate. It is an aid to assess a patient's renal function. It is not a conclusive diagnosis of kidney disease. GFR normal is >=90 The MDRD GFR calculation is considered valid between the ages of 18 and 75 years only.Responsible Observer: GFR GFR 300.0410 (A) GLOBULIN 2.2 G/DL (1.5-3.5) N (Normal) Note: Responsible Observer: GLOB GLOBULI N 300.4050 (A) GLUCOSE 85 MG/DL (70-100) N (Normal) Note: Responsible Observer: GLU GLUCOSE 300.0500 (A) POTASSIUM 4.0 MEQ/L (3.5-5.3) N (Normal) Note: Responsible Observer: K POTASSIUM 300.0150 (A) SODIUM 140 MEQ/L (135-145) N (Normal) Note: Responsible Observer: NA SODIUM 3 00.0100 (A) TOTAL PROTEIN 6.7 G/DL (5.9-8.3) N (Normal) Note: Responsible Observer: TP TOTAL PRO TEIN 300.3750 (A) Reviewed by Ludmila Weeks DO on 0; All test results are final unless otherwise noted. LIPASE [facility] Ordered by Ludmila Weeks DO on 12/01/[address] [place], [address] Collected: 11/24/2019 Reported: 11/24/2019 tel:[phone] LIPASE 28 U/L (6-51) N (Normal) Note: Responsible Observer: LIP LIPASE 300.4950 (A) Reviewed by Ludmila Weeks DO on 0; All test results are final unless otherwise noted. H pylori Ab G/A/M ,S [facility] Ordered by Ludmila Weeks DO on 12/01/[address] [place], [address] Collected: 11/24/2019 Reported: 11/27/2019 tel:[phone] H pylori IgG Ab,S 0.45 (0.00-0.79) None Note: Result Units: Index Value Negative <0.80 Equivocal 0.80 - 0.89 Positive >0.89Responsible Observer: H pylori IgG Ab H pylori IgG Ab,S [id number] 580.5449 (A) H pylori IgM Ab,S <9.0 units (0.0-8.9) None Note: N egative <9.0 Equivocal 9.0 - 11.0 Positive >11.0 This test was developed and its performance characteristics determined by [facility]. It has not been cleared or approved by the Food and Drug Administration. Performed at: - [facility] [address] [id number] Molding Manager: Marcia Bennett MD, Phone: [phone] Observer: H pylori IgM Ab H pylori IgM Ab,S [id number] 100.5494 (A) H pylori IgA Ab,S <9.0 units (0.0-8.9) None Note: N egative <9.0 Equivocal 9.0 - 11.0 Positive >11.0Responsible Observer: H pylori IgA Ab H pylori IgA Ab,S [id number] [phone] (A) Reviewed by Ludmila Weeks DO on 0; All test results are final unless otherwise noted. Reported Physicians [facility] Ordered by Ludmila Weeks DO on 12/01/[address] [place], [address] Collected: 11/24/2019 Reported: 11/27/2019 tel:[phone] Reported Physicians See Note None Note: Reported Physicians:Ordering: Ludmila Weeks LAttending: Ludmila Weeks Reviewed by Ludmila Weeks DO on 0; All test results are final unless otherwise noted. History of Present Illness History of Present Illness not supported for this document typeNo History of Present Illness Recorded Social History Description Last Updated No secondhand cigarette smoke exposure 08/26/2020 Smoking status 08/26/2020 : Former smoker 08/26/2020 Lives with ~5 children : 23, 21, 18, 14, 5 05/12/2019 Alcohol use Denies alcohol consumption 05/12/2019 control method -- none used 05/12/2019 Caffeine use 2 05/12/2019 Daily tea consumption 05/12/2019 Educational level 05/12/2019 Exercise frequency exercise related to roblero living Good exercise habits 05/12/2019 Has GED 05/12/2019 No chocolate consumption 05/12/2019 No coffee consumption 05/12/2019 No cola consumption 05/12/2019 No domestic violence 05/12/2019 No physical disability 05/12/2019 Normal activities of daily living 05/12/2019 Not a current smoker 05/12/2019 Not using drugs 05/12/2019 Sexually active 05/12/2019 Social history changed 05/12/2019 Procedures and Surgical/Medical History Includes: Procedures from 08/26/2019 through 08/26/2020 Procedures CPT-4 Diagnosis Performing Provider Service Location Service Date Periodic Oral Evaluation, [facility] D0120 En counter for dental exam and cleaning w/o abnormal findings Lore Hernandez [facility] 0 Panoramic radiographic image D0330 Encounter f or dental exam and cleaning w/o abnormal findings Lore Hernandez [facility] 04/26/2020 Periodic Oral Evaluation D0120 Encounter for d ental exam and cleaning w/o abnormal findings Lore Hernandez [facility] 04/26/2020 Oral Cancer Screening D0191 Encounter for dent al exam and cleaning w/o abnormal findings Lore Hernandez [facility] 04/26/2020 Ekg With Interpretation and Report [id number] Gastr o-esophageal reflux disease without esophagitis Ludmilatoro Weeks DO [facility] 11/24/2019 Medical History Last Updated [facility] 0 05/12/2019 5 05/12/2019 History of essential hypertension 05/12/2019 History of hyperlipidemia 05/12/2019 Medication compliance 05/12/2019 No history of coronary artery disease 05/12/2019 No history of type 2 diabetes mellitus 05/12/2019 No previous emergency room visit 05/12/2019 No recent change in medical history 05/12/2019 Para 5 05/12/2019 Past medical history -Please see Problem List for [place] Chronic Problems 05/12/2019 Cervical Pap smear outstanding 01/10/2016 Education and counseling provided for chronic care go als and plan 10/15/2013 HTN self management goals set for patient 10/15/2013 Ongoing management of hyperlipidemia - GOALS: Your LDL (bad cholesterol) goal is less than 130. PLAN: You should eat a diet low in saturated fats and avoid trans fats (labeled as partially hydrogenated fats on food labels)l. You should aim for at least 30 minutes of physical activity at least 5 days per week 10/15/2013 Ongoing management of hypertension - GO ALS: Your blood pressure goal is less than 140/90. PLAN: You should check your blood pressure periodically as directed by your provider and call the office if your blood pressure is greater than 160/100 or less than 90/60. You should also call the office or 911 for symptoms based on the hypertension self management sheet provided to you. You should eat a low sodium/salt diet and aim for at least 30 minutes of physical activity at least 5 days per week. You should also avoid nicotine use 10/15/2013 Ongoing management of overweight - GOAL S: Your goal is to lose 5-10% of your current weight and to keep it off. PLAN: You should begin reducing daily caloric intake and eat a low fat diet that limits processed foods and includes fresh fruits and vegetables and lean meats/proteins. You should aim for at least 30 minutes of physical activity at least 5 days per week 10/15/2013 Patient will reduce sodium intake 10/15/2013 The patient will lose weight 10/15/2013 Family History Includes: Family History in patient's chart Description Last Updated Family history of cancer 05/12/2019 Family history of depression - family history 2018 Family history of diabetes mellitus 05/12/2019 Family history of drug use - family history 9 Family history of early deaths --Mat u ncles--5 of them-- under age 50, heart disease 05/12/2019 Family history of heart disease 05/12/2019 Family history of hypertension 05/12/2019 Family history unchanged 05/12/2019 Family in good health 05/12/2019 Maternal history of breast cancer 05/12/2019 Maternal history of not using drugs 05/12/2019 No family history of depression 05/12/2019 No maternal history of depression 05/12/2019 No paternal history of depression 05/12/2019 Paternal history of not using drugs 05/12/2019 Review of Systems Review of Systems not supported for this document typeNo Review of Systems Recorded Mental Status Mental Status not supported for this document type Description Cognitive functioning was normal Oriented to time, place, and person Functional Status Functional Status not supported for this document typeNo Functional Status Recorded Physical Exam Physical Exam not supported for this document typeNo Physical Exam Recorded Immunizations Includes: Immunizations in patient's chart Vaccine Dose # Date Site Reaction(s) Status Source Boostrix 1 06/20/2012 Complete (Refused) [facility] Influenza, seasonal, injectable 1 07/09/2018 Compl ete (Refused) [facility] Allergies Includes: Active, inactive, and resolved Allergies Substance Type Reaction Effective Status Penicillins Allergy 04/12/2010 Active Cranberries Allergy 05/23/2010 Active Encounters Includes: Encounters from 08/26/2019 through 08/26/2020 Encounter Provider Location Date Diagnosis Acute Telehealth Zoom Cyrilestela Solorzano [facility] 08/26/2020 Contact Dermatitis Correspondence Ludmila L Ray DO 08/12/2020 Correspondence Jaqui Mo RN 07/22/2020 [Patient Encounter] Caryn Vazquez EVP/PASTER HAT LINING 020 Chart Update Ludmila Abril Ray DO 06/22/2020 [Patient Encounter] Caryn Vazquez EVP/PASTER HAT LINING 020 D New Patient - 30 Lore De Luna David DDS [facility] 04/26/2020 Referral Order Ludmila L Ray DO 04/19/2020 Referral Order Ludmila L Ray DO 04/16/2020 Assessment of Mammogram Inconclusive Due To Dense Breasts Referral Order Ludmila L Ray DO 04/15/2020 Referral Order Ludmila L Ray DO 04/13/2020 Chart Update Ludmila L Ray DO 04/08/2020 Primary Care Telehealth FaceTime Ludmila L Ray DO [facility] Coronary Artery Disease, Esophageal Reflux, Hypothyroidism, Dysplastic Nevus, Assessment of Visit For: Screening Exam Malignant Neoplasm Breast, Scabies Chart Prep Catherine Paz 03/03/2020 Correspondence Ludmila L Ray DO 02/03/2020 Primary Care Telehealth FaceTime Lara Palmer NP [facility] 0 01/14/2020 Impetigo Medication Order Ludmila L Ray DO 11/26/2019 Referral Order Ludmila Weeks DO 11/25/2019 Walk-In Ludmila Weeks DO [facility] 11/24/2019 Esophagea l Reflux Correspondence Ludmila Weeks DO 11/18/2019 Medication Order Ludmila Weeks DO 10/07/2019 Chart Update Lara Palmer NP 09/08/2019 Chronic Disease Follow-up Ludmila Weeks DO [facility] 9 Screen Malignant Neoplasm Cervix, Hypothyroidism, Hyperlipidemia Chart Prep Catherine Paz 09/04/2019 Insurance Includes: Active Insurance Policies Plan Name Member ID Group # Subscriber Relationship Effective Da josef 1 - [facility] Medicaid [id number] Ursula quinonez Self 09/24/2018 - Unknown 2 - [employer] [id number] Ursula Celeste Self Advance Directives Includes: Current Advance Directives Directive Pat Aware Third Alliance Party Effective Date Reviewed Status RHIO Yes 06/24/2012 Current and Ve rified Note: 06/20/12 packet given Pt Bill of Rights, Priv Prac, Ad Dir Yes 11/27/2017 Current and Verified Note: Pt declined AD packet Ebola Screening Performed Yes 04/26/2020 Current and Verified Note: Within the last month, have you traveled outside of the [place]? - NO Health Concerns Includes: Active Health Concerns Anaphylaxis Onset 04/08/2015 Gerd Onset 05/24/2010 Obesity Onset 10/27/2015 Sprain Back Onset 01/10/2016 Goals Includes: Active Goals To control reflux symptoms such as belch ing, buring in chest, sensation of something coming up throat, hoarseness and chronic cough. To prevent developing stomach ulcers.You were adivsed to eat a low acid diet. This consists of avoiding foods like oragne juise, tomato sauce, coffe, alcohol, carbonated beverages like soda, choclate, and fried/ greasy foods. Dairy and foods high in fiber help prevent reflux symptoms. You were adivsed to take your anti-reflux medicaiton as prescribed. Added 05/24/2010 by Provider Health Concern: Gerd Patient was given the following informat ion: How to administer the epi pen, which was demonstarted by the patient in the office today using the epi pen training device. How to store the epi pen. Keep it protected from light and store between 68-77 degrees at all times and do not get it wet. What symptoms to administer the pen for: difficulty breathing, wheezing, haarseness, hives, swellign of face, lips, mouth, or tongue, heart palpitations, weak pulse, feelign very anxious, stomach pain, diarrhea or stomach cramps, dizziness, fainting, or passing out. Patient and her parent were advised that patient needs to call 911 and be transported directly to the emergency room after injecting her epi pen. After administering the pen, the most common side effects may include increase in heart rate, stronger or irregular heartbeat, sweating, nausea and vomiting, difficulty breathing, paleness, dizziness, weakness or shakiness, headache, apprehension, nervousness or anxiety. These side effects usually go away quickly, especially if you rest. Added 04/08/2015 by Provider Health Concern: Anaphylaxis To lose weight. To obtain a BMI <25. T o avoid getting diseases like diabetes, sleep apnea, coronary artery disease, which are strongly related to being overweight Added 10/27/2015 by Provider Health Concern: Obesity Goal for Sprain Back Added 01/10/2016 by Provider Health Concern: Sprain Back Interventions Includes: Interventions for active Goals You were advised to eat fewer than 2,000 calories daily, most of which are from protein and vegtables and low-fat dairy products. You were advised to avoid eating processed foods. You were advised to get a total of 150 minutes of moderate exercise (cycling or walking) weekly. DO NOT drink soda. Soda is full of sugar and extra calories and is NOT good for you. Added 10/27/2015 Goal: To lose weight. To obtain a BMI <25. To avoid getting diseases like diabetes, sleep apnea, coronary artery disease, which are strongly related to being overweight bent lifting a movers jessi and felt a p ull/pain in paraspinal muscles. Noticed bruising over the sprained muscles- mildly tender on exam;; good rom. P: reassure. Activity as tolerated. Added 01/10/2016 Goal: Goal for Sprain Back Evaluations & Outcomes Includes: Evaluations & Outcomes for active Goals Goal converted from Patient Problem data . Goal is currently In Progress. Added 05/24/2010 - In Progress Goal: To control reflux symptoms such as belching, buring in chest, sensation of something coming up throat, hoarseness and chronic cough. To prevent developing stomach ulcers.You were adivsed to eat a low acid diet. This consists of avoiding foods like oragne juise, tomato sauce, coffe, alcohol, carbonated beverages like soda, choclate, and fried/ greasy foods. Dairy and foods high in fiber help prevent reflux symptoms. You were adivsed to take your anti-reflux medicaiton as prescribed. Goal converted from Patient Problem data . Goal is currently In Progress. Added 04/08/2015 - In Progress Goal: Patient was given the following information: How to administer the epi pen, which was demonstarted by the patient in the office today using the epi pen training device. How to store the epi pen. Keep it protected from light and store between 68-77 degrees at all times and do not get it wet. What symptoms to administer the pen for: difficulty breathing, wheezing, haarseness, hives, swellign of face, lips, mouth, or tongue, heart palpitations, weak pulse, feelign very anxious, stomach pain, diarrhea or stomach cramps, dizziness, fainting, or passing out. Patient and her parent were advised that patient needs to call 911 and be transported directly to the emergency room after injecting her epi pen. After administering the pen, the most common side effects may include increase in heart rate, stronger or irregular heartbeat, sweating, nausea and vomiting, difficulty breathing, paleness, dizziness, weakness or shakiness, headache, apprehension, nervousness or anxiety. These side effects usually go away quickly, especially if you rest. Goal converted from Patient Problem data . Goal is currently In Progress. Added 10/27/2015 - In Progress Goal: To lose weight. To obtain a BMI <25. To avoid getting diseases like diabetes, sleep apnea, coronary artery disease, which are strongly related to being overweight Goal converted from Patient Problem data . Goal is currently In Progress. Added 01/10/2016 - In Progress Goal: Goal for Sprain Back
--- OUTSIDE RECORDS SUMMARY | 2020-11-17 12:46 | CCD ---
Author Author [facility] Address Unknown Phone Unavailable Care Team Providers Care Candy Bar Attendant Name Role Phone JacksonEmilyestela Unavailable Durga De Leon MD Unavailable Unavailable Durga De Leonald MD Unavailable Unavailable MoisesDurga tripp MD Unavailable Unavailable MoisesDurga MD Unavailable Unavailable MoisesDurga MD Unavailable Unavailable MoisesDurga MD Unavailable Unavailable MoisesDurga MD Unavailable Unavailable MoisesDurga MD Unavailable Unavailable MoisesDurga MD Unavailable Unavailable MoisesDurga MD Unavailable Unavailable MoisesDurga MD Unavailable Unavailable MoisesDurga MD Unavailable Unavailable MoisesDurga MD Unavailable Unavailable MoisesDurga MD Unavailable Unavailable MoisesDurga MD Unavailable Unavailable MoisesDurga MD Unavailable Unavailable MoisesDurga tripp MD Unavailable Unavailable MoisesDurga tripp MD Unavailable Unavailable Durga De Leon MD Unavailable Unavailable Durga De Leon MD Unavailable Unavailable Durga De Leon MD Unavailable Unavailable Durga De Leon MD Unavailable Unavailable Durga De Leon MD Unavailable Unavailable Durga De Leon MD Unavailable Unavailable Durga De Leon MD Unavailable Unavailable Durga De Leon MD Unavailable Unavailable Durga De Leon MD Unavailable Unavailable Durga De Leon MD Unavailable Unavailable Durga De Leon MD Unavailable Unavailable Durga De Leon MD Unavailable Unavailable Durga De Leon MD Unavailable Unavailable Durga De Leon MD Unavailable Unavailable Durga De Leon MD Unavailable Unavailable uDrga De Leon MD Unavailable Unavailable Durga De Leon MD Unavailable Unavailable Durga De Leon MD Unavailable Unavailable Durga De Leon MD Unavailable Unavailable Durga De Leon MD Unavailable Unavailable Durga De Leon MD Unavailable Unavailable Durga De Leon MD Unavailable Unavailable Durga De Leon MD Unavailable Unavailable Durga De Leon MD Unavailable Unavailable Dugra De Leon MD Unavailable Unavailable Durga De Leon MD Unavailable Unavailable Durga De Leon MD Unavailable Unavailable Durga De Leon MD Unavailable Unavailable Durga De Leon MD Unavailable Unavailable Durga De Leon MD Unavailable Unavailable Durga De Leon MD Unavailable Unavailable Durga De Leon MD Unavailable Unavailable Asia Jimenez MD Unavailable Unavailable Asia Jimenez MD Unavailable Unavailable Asia Jimenez MD Unavailable Unavailable Asia Jimenez MD Unavailable Unavailable Asia Jimenez MD Unavailable Unavailable Asia Jimenez MD Unavailable Unavailable Asia Jimenez MD Unavailable Unavailable Tony, Asia Jarvis MD Unavailable Unavailable Tony, Asia Jarvis MD Unavailable Unavailable Tony, Asia Jarvis MD Unavailable Unavailable Tony, Asia Jarvis MD Unavailable Unavailable Tony, A Simona SORIANO Unavailable Unavailable Tony, Asia Jarvis MD Unavailable Unavailable Tony, Asia Jarvis MD Unavailable Unavailable Tony, Asia Jarvis MD Unavailable Unavailable Tony, Asia Jarvis MD Unavailable Unavailable Tony, Asia Jarvis MD Unavailable Unavailable Tony, A Simona SORIANO Unavailable Unavailable Tony, A Simona SORIANO Unavailable Unavailable Tony, A Simona SORIANO Unavailable Unavailable Tony, A Simona SORIANO Unavailable Unavailable Tony, A Simona SORIANO Unavailable Unavailable Tony, Asia Jarvis MD Unavailable Unavailable Tony, Asia Jarvis MD Unavailable Unavailable Tony, A Simona SORIANO Unavailable Unavailable Tony, A Simona SORIANO Unavailable Unavailable Tony, A Simona SORIANO Unavailable Unavailable Tony, A Simona SORIANO Unavailable Unavailable Tony, A Simona SORIANO Unavailable Unavailable Tony, A Simona SORIANO Unavailable Unavailable Tony, A Simona SORIANO Unavailable Unavailable Tony, A Simona SORIANO Unavailable Unavailable Tony, A Simona SORIANO Unavailable Unavailable Tony, A Simona SORIANO Unavailable Unavailable Tony, A Simona SORIANO Unavailable Unavailable Tony, A Simona SORIANO Unavailable Unavailable Tony, A Simona SORIANO Unavailable Unavailable Tony, A Simona SORIANO Unavailable Unavailable Tony, Asia Jarvis MD Unavailable Unavailable Tony, Asia Jarvis MD Unavailable Unavailable Tony, A Simona SORIANO Unavailable Unavailable Tony, A Simona SORIANO Unavailable Unavailable Tony, A Simona SORIANO Unavailable Unavailable Otny, A Simona SORIANO Unavailable Unavailable Tony, A Simona SORIANO Unavailable Unavailable Tony, A Simona SORIANO Unavailable Unavailable Tony, A Simona SORIANO Unavailable Unavailable Tony, Asia Jarvis MD Unavailable Unavailable Tony, Asia Jarvis MD Unavailable Unavailable Tony, Asia Jarvis MD Unavailable Unavailable Tony, Asia Jarvis MD Unavailable Unavailable Tony, A Simona SORIANO Unavailable Unavailable Tony, Asia Jarvis MD Unavailable Unavailable Tony, Asia Jarvis MD Unavailable Unavailable Tony, Asia Jarvis MD Unavailable Unavailable Tony, Asia Jarvis MD Unavailable Unavailable Tony, Asia Jarvis MD Unavailable Unavailable Tony, A Simona SORIANO Unavailable Unavailable Tony, A Simona SORIANO Unavailable Unavailable Tony, A Simona SORIANO Unavailable Unavailable Otny, A Simona SORIANO Unavailable Unavailable Tony, A Simona SORIANO Unavailable Unavailable Tony, A Simona SORIANO Unavailable Unavailable Tony, Asia Jarvis MD Unavailable Unavailable Tony, Asia Jarvis MD Unavailable Unavailable Tony, Asia Jarvis MD Unavailable Unavailable Tony, Asia Jarvis MD Unavailable Unavailable Tony, Asia Jarvis MD Unavailable Unavailable Tony, Asia Jarvis MD Unavailable Unavailable Tony, Asia Jarvis MD Unavailable Unavailable Tony, Asia Abaden MD Unavailable Unavailable Tony, Asia Jarvis MD Unavailable Unavailable Tony, Asia Jarvis MD Unavailable Unavailable Tony, Asia Jarvis MD Unavailable Unavailable Tony, Asia Jarvis MD Unavailable Unavailable Santiago Gautam MD Unavailable Unavailable Santiago Gautam MD Unavailable Unavailable Santiago Gautam MD Unavailable Unavailable Santiago Gautam MD Unavailable Unavailable Santiago Gautam MD Unavailable Unavailable Santiago Gautam MD Unavailable Unavailable Santiago Gautam MD Unavailable Unavailable Santiago Gautam MD Unavailable Unavailable Santiago Gautam MD Unavailable Unavailable Santiago Gautam MD Unavailable Unavailable Santiago Gautam MD Unavailable Unavailable Santiago Gautam MD Unavailable Unavailable Santiago Gautam MD Unavailable Unavailable Santiago Gautam MD Unavailable Unavailable Santiago Gautam MD Unavailable Unavailable Santiago Gautam MD Unavailable Unavailable Santiago Gautam MD Unavailable Unavailable Santiago Gautam MD Unavailable Unavailable Santiago Gautam MD Unavailable Unavailable Santiago Gautam MD Unavailable Unavailable Santiago Gautam MD Unavailable Unavailable Santiago Gautam MD Unavailable Unavailable Santiago Gautam MD Unavailable Unavailable Santiago Gautam MD Unavailable Unavailable Santiago Gautam MD Unavailable Unavailable Santiago Gautam MD Unavailable Unavailable Santiago Gautam MD Unavailable Unavailable Santiago Gautam MD Unavailable Unavailable Santiago Gautam MD Unavailable Unavailable Santiago Gautam MD Unavailable Unavailable Santiago Gautam MD Unavailable Unavailable Santiago Gautam MD Unavailable Unavailable Santiago Gautam MD Unavailable Unavailable Santiago Gautam MD Unavailable Unavailable Santiago Gautam MD Unavailable Unavailable Santiago Gautam MD Unavailable Unavailable Santiago Gautam MD Unavailable Unavailable Santiago Gautam MD Unavailable Unavailable Santiago Gautam MD Unavailable Unavailable Santiago Gautam MD Unavailable Unavailable Santiago Gautam MD Unavailable Unavailable Santiago Gautam MD Unavailable Unavailable Santiago Gautam MD Unavailable Unavailable Santiago Gautam MD Unavailable Unavailable Santiago Gautam MD Unavailable Unavailable Santiago Gautam MD Unavailable Unavailable Santiago Gautam MD Unavailable Unavailable SleSantiago trivedi MD Unavailable Unavailable SleSantiago trivedi MD Unavailable Unavailable Santiago Gautam MD Unavailable Unavailable SleSantiago trivedi MD Unavailable Unavailable SleSantiago trivedi MD Unavailable Unavailable SleSantiago trivedi MD Unavailable Unavailable Santiago Gautam MD Unavailable Unavailable SleLeonel triveditech Unavailable Unavailable Santiago Gautam MD Unavailable Unavailable SleLeonel triveditech Unavailable Unavailable SlezkaLeoneltech Unavailable Unavailable Campanaro, Mare Mary Ellen PA Unavailable Unavailable Campanaro, Mare Mary Ellen PA Unavailable Unavailable Campanaro, Mare Mary Ellen PA Unavailable Unavailable Campanaro, Mare Mary Ellen PA Unavailable Unavailable Campanaro, Mare Mary Ellen PA Unavailable Unavailable Campanaro, Mare Mary Ellen PA Unavailable Unavailable Campanaro, Mare Mary Ellen PA Unavailable Unavailable Campanaro, Mare Mary Ellen PA Unavailable Unavailable Campanaro, Mare Mary Ellen PA Unavailable Unavailable Campanaro, Mare Mary Ellen PA Unavailable Unavailable Campanaro, Mare Mary Ellen PA Unavailable Unavailable Campanaro, Mare Mary Ellen PA Unavailable Unavailable Campanaro, Mare Mary Ellen PA Unavailable Unavailable Campanaro, Mare Mary Ellen PA Unavailable Unavailable Campanaro, Mare Mary Ellen PA Unavailable Unavailable Campanaro, Mare Mary Ellen PA Unavailable Unavailable Campanaro, Mare Mary Ellen PA Unavailable Unavailable Campanaro, Mare Mary Ellen PA Unavailable Unavailable Camp, A Lara ASSOCIATE STORE MANAGER Unavailable Unavailable Camp, A Lara ASSOCIATE STORE MANAGER Unavailable Unavailable Spencer, A Lara ASSOCIATE STORE MANAGER Unavailable Unavailable Camp, A Lara ASSOCIATE STORE MANAGER Unavailable Unavailable Spencer, A Lara ASSOCIATE STORE MANAGER Unavailable Unavailable Spencer, A Lara ASSOCIATE STORE MANAGER Unavailable Unavailable Spencer, A Lara ASSOCIATE STORE MANAGER Unavailable Unavailable Camp, A Lara ASSOCIATE STORE MANAGER Unavailable Unavailable Camp, A Lara ASSOCIATE STORE MANAGER Unavailable Unavailable Camp, A Lara ASSOCIATE STORE MANAGER Unavailable Unavailable Camp, A Lara ASSOCIATE STORE MANAGER Unavailable Unavailable Camp, A Lara ASSOCIATE STORE MANAGER Unavailable Unavailable Camp, A Lara ASSOCIATE STORE MANAGER Unavailable Unavailable Spencer, A Lara ASSOCIATE STORE MANAGER Unavailable Unavailable Spencer, A Lara ASSOCIATE STORE MANAGER Unavailable Unavailable Spencer, A Lara ASSOCIATE STORE MANAGER Unavailable Unavailable Spencer, A Lara ASSOCIATE STORE MANAGER Unavailable Unavailable Camp, A Lara ASSOCIATE STORE MANAGER Unavailable Unavailable Spencer, A Lara ASSOCIATE STORE MANAGER Unavailable Unavailable Camp, A Lara ASSOCIATE STORE MANAGER Unavailable Unavailable Camp, A Lara ASSOCIATE STORE MANAGER Unavailable Unavailable Camp, A Lara ASSOCIATE STORE MANAGER Unavailable Unavailable Ray, L Sonia Unavailable Unavailable Ray, L Sonia Unavailable Unavailable Ray, L Sonia Unavailable Unavailable Ray, L Sonia Unavailable Unavailable Ray, L Sonia Unavailable Unavailable Ray, L Sonia Unavailable Unavailable Ray, L Sonia Unavailable Unavailable Ray, L Sonia Unavailable Unavailable Ray, L Sonia Unavailable Unavailable Ray, L Sonia Unavailable Unavailable Ray, L Sonia Unavailable Unavailable Ray, L Sonia Unavailable Unavailable Ray, L Sonia Unavailable Unavailable Ray, L Sonia Unavailable Unavailable Ray, L Sonia Unavailable Unavailable Ray, L Sonia Unavailable Unavailable Ray, L Sonia Unavailable Unavailable Ray, L Sonia Unavailable Unavailable Ray, L Sonia Unavailable Unavailable Ray, L Sonia Unavailable Unavailable Ray, L Sonia Unavailable Unavailable Ray, L Sonia Unavailable Unavailable Ray, L Sonia Unavailable Unavailable Ray, L Sonia Unavailable Unavailable Ray, L Sonia Unavailable Unavailable Ray, L Sonia Unavailable Unavailable Ray, L Sonia Unavailable Unavailable Ray, L Sonia Unavailable Unavailable Ray, L Sonia Unavailable Unavailable Ray, L Sonia Unavailable Unavailable Ray, L Sonia Unavailable Unavailable Ray, L Sonia Unavailable Unavailable Ray, L Sonia Unavailable Unavailable Ray, L Sonia Unavailable Unavailable Ray, L Sonia Unavailable Unavailable Ray, L Sonia Unavailable Unavailable Ray, L Sonia Unavailable Unavailable Ray, L Sonia Unavailable Unavailable Ray, L Sonia Unavailable Unavailable Ray, L Sonia Unavailable Unavailable Ray, L Sonia Unavailable Unavailable Ray, L Sonia Unavailable Unavailable Ray, L Sonia Unavailable Unavailable Ray, L Sonia Unavailable Unavailable Ray, L Sonia Unavailable Unavailable Ray, L Sonia Unavailable Unavailable Ray, L Sonia Unavailable Unavailable Ray, L Sonia Unavailable Unavailable Ray, L Sonia Unavailable Unavailable Ray, L Sonia Unavailable Unavailable Ray, L Sonia Unavailable Unavailable Ray, L Sonia Unavailable Unavailable Ray, L Sonia Unavailable Unavailable Ray, L Sonia Unavailable Unavailable Ray, L Sonia Unavailable Unavailable Ray, L Sonia Unavailable Unavailable Ray, L Sonia Unavailable Unavailable Ray, L Sonia Unavailable Unavailable Ray, L Sonia Unavailable Unavailable Ray, L Sonia Unavailable Unavailable Ray, L Sonia Unavailable Unavailable Ray, L Sonia Unavailable Unavailable Ray, L Sonia Unavailable Unavailable Ray, L Sonia Unavailable Unavailable Ray, L Sonia Unavailable Unavailable Ray, L Sonia Unavailable Unavailable Ray, L Sonia Unavailable Unavailable Ray, L Sonia Unavailable Unavailable Ray, L Sonia Unavailable Unavailable Ray, L Sonia Unavailable Unavailable Ray, L Sonia Unavailable Unavailable Ray, L Sonia Unavailable Unavailable David, Kwi Yeon DDS Unavailable Unavailable David, Kwi Yeon DDS Unavailable Unavailable David, Kwi Yeon DDS Unavailable Unavailable Cyril Solorzano MD Unavailable Unavailable Cyril Solorzano MD Unavailable Unavailable Cyril Solorzano MD Unavailable Unavailable Cyril Solorzano MD Unavailable Unavailable Cyril Solorzano MD Unavailable Unavailable Cyril Solorzano MD Unavailable Unavailable Cyril Solorzano MD Unavailable Unavailable Cyril Solorzano MD Unavailable Unavailable Cyril Solorzano MD Unavailable Unavailable Cyril Solorzano MD Unavailable Unavailable Cyril Solorzano MD Unavailable Unavailable Cyril Solorzano MD Unavailable Unavailable Piper, Myranda ASSOCIATE STORE MANAGER Unavailable Unavailable Piper, Myranda ASSOCIATE STORE MANAGER Unavailable Unavailable Piper, Myranda ASSOCIATE STORE MANAGER Unavailable Unavailable Piper, Myranda ASSOCIATE STORE MANAGER Unavailable Unavailable Piper, Myranda ASSOCIATE STORE MANAGER Unavailable Unavailable Piper, Myranda ASSOCIATE STORE MANAGER Unavailable Unavailable Piper, Myranda ASSOCIATE STORE MANAGER Unavailable Unavailable Piper, Myranda ASSOCIATE STORE MANAGER Unavailable Unavailable Piper, Myranda ASSOCIATE STORE MANAGER Unavailable Unavailable Piper, Myranda ASSOCIATE STORE MANAGER Unavailable Unavailable Piper, Myranda ASSOCIATE STORE MANAGER Unavailable Unavailable Taylor BARBOSA/Caryn IRWIN Unavailable SAMY Luong, Jacqueline Unavailable Re-disclosure Warning The records that you are about to access may contain information from federally-assisted alcohol or drug abuse programs. If such information is present, then the following federally mandated warning applies: This information has been disclosed to you from records protected by federal confidentiality rules (42 CFR part 2). The federal rules prohibit you from making any further disclosure of this information unless further disclosure is expressly permitted by the written consent of the person to whom it pertains or as otherwise permitted by 42 CFR part 2. A general authorization for the release of medical or other information is NOT sufficient for this purpose. The Federal rules restrict any use of the information to criminally investigate or prosecute any alcohol or drug abuse patient.The records that you are about to access may contain highly sensitive health information, the redisclosure of which is protected by Article 27-F of the [facility] Public Health law. If you continue you may have access to information: Regarding HIV / AIDS; Provided by facilities licensed or operated by the [facility] Office of Mental Health; or Provided by the [facility] Office for People With Developmental Disabilities. If such information is present, then the following [facility] mandated warning applies: This information has been disclosed to you from confidential records which are protected by state law. State law prohibits you from making any further disclosure of this information without the specific written consent of the person to whom it pertains, or as otherwise permitted by law. Any unauthorized further disclosure in violation of state law may result in a fine or detention sentence or both. A general authorization for the release of medical or other information is NOT sufficient authorization for further disc losure. Advance Directives Directive Description President System Validation Engineer Status Observation Descr iption Data Source(s) Ebola Screening Performed completed Ebol a Screening Performed [facility] ([facility]) Note: Within the last month, have you tr aveled outside of the [place]? -NO Allergies and Adverse Reactions Type Description Substance Reaction Status Data Source(s ) Penicillin (For Allergies Use Only) Penicillin (For Allergie s Use Only) Penicillin (For Allergies Use Only) Anaphylaxis Active [facility] ([facility]) Family History Family Member Name Family Member Gender Family Member Status Date o f Status Description Data Source(s) Unknown Female Diagnosis 07/28/2019 12:00:00 AM EST [facility] ([facility]) Unknown Female Diagnosis 07/28/2019 12:00:00 AM EST [facility] ([facility]) Unknown Female Diagnosis 01/01/2017 12:00:00 AM EDT [facility] ([facility]) Unknown Female Diagnosis 01/01/2017 12:00:00 AM EDT [facility] ([facility]) Unknown Female Diagnosis 01/01/2017 12:00:00 AM EDT [facility] ([facility]) Unknown Female Diagnosis 01/01/2017 12:00:00 AM EDT [facility] ([facility]) Unknown Female Diagnosis 01/01/2017 12:00:00 AM EDT [facility] ([facility]) Encounters Encounter Providers Location Date Indications Data Source(s ) Attender: Simona Marreron 12/2019 08:10:00 AM EST - 08/27/2020 08:10:00 AM EST [facility] ([facility]) Outpatient<td ID="encounterTypeDescripti onID0">Acute Telehealth Zoom</td><td>Cyril Solorzano TRUST ACCOUNTS SUPERVISOR</td><td>[facility]</td><td>08/26/2020</td><td><content ID="encounterDiagnosisID0-0">Contact Dermatitis</content></td> Attender: Cyril Solorzano MD [facility][1] 08/26/20 10:00:00 AM EST - 08/26/2020 11:59:00 PM EST Contact Dermatitis [facility] ([facility]) Contact Dermatitis Attender: Simona CABALLERO [place] 1 10/13/2019 03:08:00 PM EST - 08/13/2020 03:08:00 PM EST [facility] ([facility]) Unknown<td ID="encounterTypeDescriptionI D1">Correspondence</td><td>Sonia Weeks DO</td><td></td><td>08/12/2020</td><td></td> Attender: Sonia Weeks 08/12/2020 04:28:00 PM EST - 08/12/2020 11:59:00 PM EST [facility] ([facility]) Unknown<td ID="encounterTypeDescriptionI D2">Correspondence</td><td>Jaqui Mo RN</td><td></td><td>07/22/2020</td><td></td> Attender: Jacqueline Luong RN 07/22/2020 02:11:00 PM EDT - 07/22/2020 11:59:00 PM EDT [facility] ([facility]) Unknown<td ID="encounterTypeDescriptionI D3">[Patient Encounter]</td><td>Caryn Vazquez ADJUNCT BUSINESS INSTRUCTOR/WEAVING LOOM OPERATOR</td><td></td><td>07/07/2020</td><td></td> Attender: Caryn BARBOSA/DOO 07/07/2020 11:29:00 AM EDT - 07/07/2020 11:59 :00 PM EDT [facility] Unknown<td ID="encounterTypeDescriptionI D4">Chart Update</td><td>Sonia Weeks DO</td><td></td><td>06/22/2020</td><td></td> Attender: Sonia Micky 06/22/2020 05:51:00 PM EDT - 06/22/2020 11:59:00 PM EDT [facility] Out[facility] Attender: Santiago KAISEReferrer: Leonel DE LEÓN-SJPNessaRADHA 06/22/2020 09:05:58 AM EDT - 06/22/2020 09:42:54 AM EDT [facility] Outpatient Referrer: Santiago DE LEÓN-SJPNessaRADHA 05/26 12:00:00 AM EDT [facility] Unknown<td ID="encounterTypeDescriptionI D5">[Patient Encounter]</td><td>Caryn Vazquez ADJUNCT BUSINESS INSTRUCTOR/WEAVING LOOM OPERATOR</td><td></td><td>06/11/2020</td><td></td> Attender: Caryn Vazquez FLASK PUSHER/DOO 06/11/2020 10:57:00 AM EDT - 06/11/2020 11:59 :00 PM EDT [facility] ([facility]) Attender: Simona Jimenez MD [facility] [place] 01:31:00 PM EDT - 06/10/2020 01:31:00 PM EDT [facility] ([facility]) Outpatient Attender: Santiago DE LEÓN-SJP.RADHA 09/2019 12:00:00 AM EDT - 05/25/2020 03:48:21 PM EDT [facility] Outpatient Attender: Mary Ellen davidson 05/01/2020 04:35:00 PM EDT [facility] ([facility]) Unknown<td ID="encounterTypeDescriptionI D6">D New Patient - 30</td><td>Lore Hernandez DDS</td><td>[facility]</td><td>04/26/2020</td><td></td> Attender: Lore Paynedorian Hernandez DDS [facility] 04/26/2020 03:33:00 PM EDT - 04/26/2020 04:05:00 PM EDT [facility] ([facility]) Unknown<td ID="encounterTypeDescriptionI D7">Referral Order</td><td>Sonia L Ray DO</td><td></td><td>04/19/2020</td><td></td> Attender: Sonia Weeks 04/19/2020 08:18:00 AM EDT - 04/19/2020 11:59:00 PM EDT [facility] ([facility]) Unknown<td ID="encounterTypeDescriptionI D8">Referral Order</td><td>Sonia L Ray DO</td><td></td><td>04/16/2020</td><td><content ID="encounterDiagnosisID8-0"> Assessment of Mammogram Inconclusive Due To Dense Breasts</content></td> Attender: Sonia Weeks 04/16/2020 02:37:00 PM EDT - 04/16/2020 11:59:00 PM EDT Assessment of Mammogram Inconclusive Due To Dense BreastsAssessment of Mammogram Inconclusive Due To Dense BreastsAssessment of Mammogram Inconclusive Due To Dense Breasts [facility] Assessment of Mammogram Inconclusive Due To Dense Breasts Assessment of Mammogram Inconclusive Due To Dense Breasts Assessment of Mammogram Inconclusive Due To Dense Breasts Unknown<td ID="encounterTypeDescriptionI D9">Referral Order</td><td>Sonia L Ray DO</td><td></td><td>04/15/2020</td><td></td> Attender: Sonia Weeks 04/15/2020 12:45:00 PM EDT - 04/15/2020 11:59:00 PM EDT [facility] ([facility]) Outpatient Attender: Sonia Weeks 04/15/2020 10:28:00 AM EDT screening [facility] screening Unknown<td ID="encounterTypeDescriptionI D10">Referral Order</td><td>Sonia Weeks DO</td><td></td><td>04/13/2020</td><td></td> Attender: Sonia Micky 04/13/2020 09:59:00 AM EDT - 04/13/2020 11:59:00 PM EDT [facility] ([facility]) Unknown<td ID="encounterTypeDescriptionI D11">Chart Update</td><td>Sonia Weeks DO</td><td></td><td>04/08/2020</td><td></td> Attender: Soniaotro Weeks 04/08/2020 03:31:00 PM EDT - 04/08/2020 11:59:00 PM EDT [facility] ([facility]) Outpatient Attender: Jeffy De Leon MD Main Office 03/16/2020 03:15:00 PM [facility] Outpatient<td ID="encounterTypeDescripti onID12">Primary Care Telehealth FaceTime</td><td>Sonia Weeks DO</td><td>[facility][1]</td><td>03/09/2020</td><td><content ID="[id number]"> Coronary Artery Disease</content>, <content ID="kzceiahsbVtbhopqjkLD49- 1">Esophageal Reflux</content>, <content ID="[id number]">Hypothyroidism</content>, <content ID="[id number]">Dysplastic Nevus</content>, <content ID="vuvycewqlOltjaomunNM41-6">Assessment of Visit For: Screening Exam Malignant Neoplasm Breast</content>, <content ID="udyjvnjjhPabcysemgDO22-1">Scabies</content></td> Attender: Soniatoro Weeks [facility][1] 03/09/2020 02:46:00 PM EDT - 03/09/2020 04:00:31 PM ED T ScabiesDysplastic NevusScabiesDysplastic NevusScabiesDysplastic NevusScabiesDysplastic NevusScabiesDysplastic NevusEsophageal RefluxEsophageal RefluxEsophageal RefluxEsophageal RefluxEsophageal RefluxAssessment of Visit For: Screening Exam Malignant Neoplasm BreastAssessment of Visit For: Screening Exam Malignant Neoplasm BreastAssessment of Visit For: Screening Exam Malignant Neoplasm BreastAssessment of Visit For: Screening Exam Malignant Neoplasm BreastAssessment of Visit For: Screening Exam Malignant Neoplasm BreastCoronary Artery DiseaseCoronary Artery DiseaseCoronary Artery DiseaseCoronary Artery DiseaseCoronary Artery Disease HypothyroidismHypothyroidismHypothyroidismHypothyroidismHypothyroidism [place] ([facility]) Scabies Dysplastic Nevus Scabies Dysplastic Nevus Scabies Dysplastic Nevus Scabies Dysplastic Nevus Scabies Dysplastic Nevus Esophageal Reflux Esophageal Reflux Esophageal Reflux Esophageal Reflux Esophageal Reflux Assessment of Visit For: Screening Exam Malignant Neoplasm Breast Assessment of Visit For: Screening Exam Malignant Neoplasm Breast Assessment of Visit For: Screening Exam Malignant Neoplasm Breast Assessment of Visit For: Screening Exam Malignant Neoplasm Breast Assessment of Visit For: Screening Exam Malignant Neoplasm Breast Coronary Artery Disease Coronary Artery Disease Coronary Artery Disease Coronary Artery Disease Coronary Artery Disease Hypothyroidism Hypothyroidism Hypothyroidism Hypothyroidism Hypothyroidism Unknown<td ID="encounterTypeDescriptionI D13">Chart Prep</td><td>Catherine Paz</td><td></td><td>03/03/2020</td><td></td> Attender: Catherine Paz 03/03/2020 04:05:00 PM EDT - 03/03/2020 11:59:00 PM EDT [place] ([facility]) Outpatient Attender: Myranda hilton 02/06/2020 04:30:00 PM EDT [facility] ([facility]) Unknown<td ID="encounterTypeDescriptionI D14">Correspondence</td><td>Sonia Weeks DO</td><td></td><td>02/03/2020</td><td></td> Attender: Sonia Weeks 02/03/2020 03:47:00 PM EDT - 02/03/2020 11:59:00 PM EDT [place] ([facility]) Outpatient<td ID="encounterTypeDescripti onID15">Primary Care Telehealth FaceTime</td><td>Lara Palmer NP</td><td>[facility]</td><td>01/14/2020</td><td><content ID="[id number]">[facility]</content></td> Attender: Lara Palmer NP [facility] 01/14/2020 02:10:00 PM EDT - 01/14/2020 04:25:31 PM ED T [facility] [place] ([facility]) [facility] Outpatient<td ID="encounterTypeDescripti onID16">Medication Order</td><td>Sonia Weeks DO</td><td></td><td>11/26/2019</td><td></td> Attender: Sonia Weeks 11/26/2019 10:54:00 AM EST - 11/26/2019 11:59:00 PM EST [place] ([facility]) Unknown<td ID="encounterTypeDescriptionI D17">Referral Order</td><td>Sonia Samuels Ray DO</td><td></td><td>11/25/2019</td><td></td> Attender: Sonia Weeks 11/25/2019 10:16:00 AM EST - 11/25/2019 11:59:00 PM EST [place] ([facility]) Outpatient Attender: Sonia Weeks 11/24/2019 03:56:00 PM EST Lab [facility] Lab Outpatient<td ID="encounterTypeDescripti onID18">Walk-In</td><td>Sonia L Ray DO</td><td>[facility]</td><td>11/24/2019</td><td><content ID="[id number]">Esophageal Reflux</content></td> Attender: Sonia Weeks [facility][1] 11/24/2019 02:42:00 PM EST - 11/24/2019 03:46:54 PM EST Esophageal RefluxEsophageal RefluxEsophageal RefluxEsophageal RefluxEsophageal RefluxEsophageal RefluxEsophageal Reflux [place] [facility] Esophageal Reflux Esophageal Reflux Esophageal Reflux Esophageal Reflux Esophageal Reflux Esophageal Reflux Esophageal Reflux Outpatient 11/18/2019 09:49:00 AM EST [facility] Unknown<td ID="encounterTypeDescriptionI D19">Correspondence</td><td>Sonia Weeks DO</td><td></td><td>11/18/2019</td><td></td> Attender: Sonia Weeks 11/18/2019 07:42:00 AM EST - 11/18/2019 11:59:00 PM EST [place] ([facility]) [facility] [address] [address] 11/09/2019 12:00:00 AM EST eCW1 ([facility]) Outpatient<td ID="encounterTypeDescripti onID20">Medication Order</td><td>Sonia Weeks DO</td><td></td><td>10/07/2019</td><td></td> Attender: Sonia Weeks 10/07/2019 09:22:00 AM EST - 10/07/2019 11:59:00 PM EST [place] ([facility]) Medications Medication Brand Name Start Date Product Form Dose Route Admi nistrative Instructions Pharmacy Instructions Status Indications Reaction Description Data Source(s) Levothyroxine Sodium 0.137 MG Oral Table t [Synthroid] Synthroid 137 MCG Oral Tablet Synthroid 137 MCG Oral Tablet 08/13/2020 12:00:00 AM EST 1 active levothyroxine sodium 0.137 MG Or al Tablet [Synthroid] [place] ([facility]) Omeprazole 20 MG Delayed Release Oral Capsule Omeprazole 03/16/2020 12:00:00 AM EDT ORAL active [facility] ([facility]) Suprep Bowel Prep Kit Suprep Bowel Prep Kit 03/16/2020 12:00:00 AM EDT active [facility] ([facility]) Permethrin 50 MG/ML Topical Cream Permethrin 5% French Binder al Cream Permethrin 5% External Cream 03/09/2020 12:00:00 AM EDT com pleted permethrin 50 MG/ML Topical Cream [place] ([facility]) Prednisone 20 MG Oral Tablet Prednisone 02/06/2020 12:00:00 AM EDT completed [facility] ([facility]) Calamine 02/06/2020 12:00:00 AM EDT completed [facility] ([facility]) Diphenhydramine Hydrochloride 25 MG Oral Capsule Diphenhydra mine HCL 02/06/2020 12:00:00 AM EDT ORAL completed [facility] ([facility]) Permethrin 50 MG/ML Topical Cream Permethrin 02/01/2020 12:00:00 AM EDT completed [facility] ([facility]) 5 % 02/01/2020 12:00:00 AM EDT cream 60 APPLY ON SKIN HEAD TO TOE, LEAVE ON FOR 10-14 HOURS, THEN RINSE OFF APPLY ON SKIN HEAD TO TOE, LEAVE ON FOR 10-14 HOURS, THEN RINSE OFF SOLD: 02/01/2020 [facility] Mupirocin 0.02 MG/MG Topical Ointment Mupirocin 2% Ext ernal Ointment Mupirocin 2% External Ointment 01/14/2020 12:00:00 AM EDT active mupirocin 0.02 MG/MG Topical Ointment [place] ([facility]) Levothyroxine Sodium 0.137 MG Oral Table t [Synthroid] Synthroid 137 MCG Oral Tablet Synthroid 137 MCG Oral Tablet 12/09/2019 12:00:00 AM EDT 1 aborted levothyroxine sodium 0.137 MG Or al Tablet [Synthroid] [place] ([facility]) Ondansetron 8 MG Disintegrating Oral Tab let Ondansetron 8 MG Oral Tablet Disintegrating Ondansetron 8 MG Oral Tablet Disintegrating 11/26/2019 12:00:00 AM EST 1 completed ondansetron 8 MG Disintegrating Oral Tablet [place] ([facility]) Omeprazole 40 MG Delayed Release Oral Ca psule Omeprazole 40 MG Oral Capsule Delayed Release Omeprazole 40 MG Oral Capsule Delayed Release 11/24/19 12:00:00 AM EST completed omeprazole 40 MG Delayed Release Oral Capsule [place] ([facility] Ranitidine 75 MG Oral Tablet [Zantac] Zantac 75 75 MG Zantac 75 75 MG 11/09/2019 12:00:00 AM EST active 1 table t as needed eCW1 ([facility]) Ibuprofen 600 MG Oral Tablet Ibuprofen 600 MG Oral Tablet 12:00:00 AM EST active ibuprofen 600 MG Oral Tablet [place] ([facility]) Ibuprofen 600 MG Oral Tablet Ibuprofen 600 MG Oral Tablet 12:00:00 AM EST aborted ibuprofen 600 MG Oral Tablet [place] [facility] Levothyroxine Sodium 0.137 MG Oral Table t [Synthroid] Synthroid 137MCG Oral Tablet Synthroid 137MCG Oral Tablet 02/14/2019 12:00:00 AM EDT 1 aborted levothyroxine sodium 0.137 MG Or al Tablet [Synthroid] [place] ([facility]) Insurance Providers Payer name Policy type / Coverage type Policy ID Covered constitution party ID Covered constitution party's relationship to maki Policy Maki Plan Information FORMERLY [facility] [id number] SP [id number] UnitedHealthcare Other 0 Self 0 UnitedHealthcare Other 0 Self 0 [facility] MEDICAID [id number] [place] [id number] FORMERLY [facility] COMMUNITY PLAN [facility] [id number] SP [id number] SELF PAY [facility] [id number] SP [id number] UnitedHealthcare Other 0 Self 0 UnitedHealthcare Other 0 Self 0 UnitedHealthcare Other 0 Self 0 UnitedHealthcare Other 0 Self 0 SELF PAY [facility] COMMUNITY [facility] [id number] SP [id number] UnitedHealthcare Other 0 Self 0 UNITED HEALTHCARE(MCAID) O [id number] S [id number] UnitedHealthcare Other 0 Self 0 UnitedHealthcare Other 0 Self 0 UnitedHealthcare Other 0 Self 0 [facility] Health Maintenance Organization (HMO) [id number] Self [id number] UnitedHealthcare Other 0 Self 0 SELF PAY [facility] COMMUNITY [facility] [id number] SP [id number] UnitedHealthcare Other 0 Self 0 [facility] COMMUNITY [facility] [id number] SP [id number] UnitedHealthcare Other 0 Self 0 UnitedHealthcare Other 0 Self 0 United [facility] [place] Health Maintenance Organization (O) [id number] Self [id number] UnitedHealthcare Other 0 Self 0 UnitedHealthcare Other 0 Self 0 UnitedHealthcare Other 0 Self 0 [facility] Health Maintenance Organization (HMO) Self [facility] COMMUNITY PLAN [id number] SP [id number] AMERIC[employer]ICE [id number] SP [id number] [facility] COMMUNITY PLAN [id number] SP [id number] [facility] [address] [id number] SP [id number] [facility] [address] [id number] SP [id number] Problems, Conditions, and Diagnoses Code Display Name Description Problem Type Effective Dates Data Source(s) 96429 Contact Dermatitis Contact Dermatitis Problem 0 12:00:00 AM EST [place] ([employer]) 793.82 Mammogram Inconclusive Due To Dense [place] sts Mammogram Inconclusive Due To Dense Breasts Finding 04/16/2020 12:00:00 AM EDT [place] ([facility]) 793.82 Mammogram Inconclusive Due To Dense [place] sts Mammogram Inconclusive Due To Dense Breasts Finding 04/16/2020 12:00:00 AM EDT [place] ([facility]) 793.82 Mammogram Inconclusive Due To Dense [place] sts Mammogram Inconclusive Due To Dense Breasts Finding 04/16/2020 12:00:00 AM EDT [place] ([facility]) V76.51 Encounter for screening for malignant ne oplasm of colon Encounter for screening for malignant neoplasm of colon Problem 04/08/2020 12:00:0 0 AM EDT [place] ([employer]) 455.0 Hemorrhoids Internal Hemorrhoids Internal Problem 04/08/2020 12:00:00 AM EDT [place] ([facility]) 84099 Gastritis Gastritis Problem 04/08/2020 12:00:00 AM ED T [place] ([employer]) 41172 Childs's Esophagus Childs's Esophagus Problem 0 04/08/2020 12:00:00 AM EDT [place] ([facility]) V76.51 Encounter for screening for malignant ne oplasm of colon Encounter for screening for malignant neoplasm of colon Problem 04/08/2020 12:00:0 0 AM EDT [place] ([employer]) 455.0 Hemorrhoids Internal Hemorrhoids Internal Problem 04/08/2020 12:00:00 AM EDT [place] ([facility]) 33538 Gastritis Gastritis Problem 04/08/2020 12:00:00 AM ED T [place] ([facility]) 23704 Childs's Esophagus Childs's Esophagus Problem 0 04/08/2020 12:00:00 AM EDT [place] ([facility]) V76.51 Encounter for screening for malignant ne oplasm of colon Encounter for screening for malignant neoplasm of colon Problem 04/08/2020 12:00:0 0 AM EDT [place] ([facility]) 455.0 Hemorrhoids Internal Hemorrhoids Internal Problem 04/08/2020 12:00:00 AM EDT [place] [facility] 29361 Gastritis Gastritis Problem 04/08/2020 12:00:00 AM ED T [place] ([facility]) 71687 Childs's Esophagus Childs's Esophagus Problem 0 04/08/2020 12:00:00 AM EDT [place] [facility] V76.51 Encounter for screening for malignant ne oplasm of colon Encounter for screening for malignant neoplasm of colon Problem 04/08/2020 12:00:0 0 AM EDT [place] ([facility]) 455.0 Hemorrhoids Internal Hemorrhoids Internal Problem 04/08/2020 12:00:00 AM EDT [place] [facility] 98158 Gastritis Gastritis Problem 04/08/2020 12:00:00 AM ED T [place] ([facility]) 92817 Childs's Esophagus Childs's Esophagus Problem 0 04/08/2020 12:00:00 AM EDT [place] ([facility]) [id number] Screening for malignant neoplasm of colo n Screening for malignant neoplasm of colon Problem 03/16/2020 12:00:00 AM EDT [facility] ([facility]) 133.0 Scabies Scabies Problem 03/09/2020 12:00:00 AM ED T [place] ([facility]) 238.2 Dysplastic Nevus Dysplastic Nevus Problem 03/09/2020 12 :00:00 AM EDT [place] ([facility]) 133.0 Scabies Scabies Problem 03/09/2020 12:00:00 AM ED T [place] ([facility]) 238.2 Dysplastic Nevus Dysplastic Nevus Problem 03/09/2020 12 :00:00 AM EDT [place] ([facility]) 133.0 Scabies Scabies Problem 03/09/2020 12:00:00 AM ED T [place] ([facility]) 238.2 Dysplastic Nevus Dysplastic Nevus Problem 03/09/2020 12 :00:00 AM EDT [place] ([facility] 133.0 Scabies Scabies Problem 03/09/2020 12:00:00 AM ED T [place] [facility]) 238.2 Dysplastic Nevus Dysplastic Nevus Problem 03/09/2020 12 :00:00 AM EDT [place] ([facility]) 133.0 Scabies Scabies Problem 03/09/2020 12:00:00 AM ED T [place] [facility]) 238.2 Dysplastic Nevus Dysplastic Nevus Problem 03/09/2020 12 :00:00 AM EDT [place] [facility] 530.81 Esophageal Reflux Esophageal Reflux Problem 11/24/2019 12:00:00 AM EST [place] ([facility]) 530.81 Esophageal Reflux Esophageal Reflux Problem 11/24/2019 12:00:00 AM EST [place] ([facility]) 530.81 Esophageal Reflux Esophageal Reflux Problem 11/24/2019 12:00:00 AM EST [place] ([facility]) 530.81 Esophageal Reflux Esophageal Reflux Problem 11/24/2019 12:00:00 AM EST [place] ([facility]) 530.81 Esophageal Reflux Esophageal Reflux Problem 11/24/2019 12:00:00 AM EST [place] ([facility]) 530.81 Esophageal Reflux Esophageal Reflux Problem 11/24/2019 12:00:00 AM EST [place] ([facility]) 530.81 Esophageal Reflux Esophageal Reflux Problem 11/24/2019 12:00:00 AM EST [place] ([facility]) R07.89 Other chest pain Other chest pain Diagnosis 06/22/2020 09 :05:58 AM EDT [facility] E78.49 Other hyperlipidemia Other hyperlipidemia Diagnosis 05/25/2020 02:45:44 PM EDT [facility] I25.119 Atherosclerotic heart diseas e of [place] coronary artery with unspecified angina pectoris Atherosclerotic heart disease of [place] Diagnosis 05/25/2020 02:45:44 PM EDT [facility] Z12.31 Encounter for screening mammogram for ma lignant neoplasm of breast Z12.31 - Encounter for screening mammogram for malignant neoplasm of breast Diagnosis 04/15/2020 10:28:00 AM EDT [facility] K21.9 Gastro-esophageal reflux disease without esophagitis K21.9 - Gastro- esophageal reflux disease without esophagitis Diagnosis 11/24/19 20 03:56:00 PM EST [facility] Surgeries/Procedures Procedure Description Date Indications Data Source(s) Oral Cancer Screening Oral Cancer Screening 04/26/2020 12:00:00 AM EDT [place] ([facility]) Periodic Oral Evaluation Periodic Oral Evaluation 04/26/2020 12:00: 00 AM EDT [place] ([facility]) Panoramic radiographic image Panoramic radiographic image 12:00:00 AM EDT [place] ([facility]) Periodic Oral Evaluation, [facility] Periodic Oral Evaluati on, [facility] 04/26/2020 12:00:00 AM EDT [place] ([facility]) UPPER NDSC BIOPSY SINGLE/MULTIPLE 04/05/2020 12:00:00 AM EDT [facility] ([facility]) COLONOSCOPY FLX DX W/WO COLLJ SPECIMENS 04/05/2020 12: 00:00 AM EDT [facility] ([facility]) Ekg With Interpretation and Report Ekg With Interpretation a nd Report 11/24/2019 12:00:00 AM EST [place] ([facility]) Ekg With Interpretation and Report Ekg With Interpretation a nd Report 11/24/2019 12:00:00 AM EST [place] ([facility]) URINE-NO MICRO 11/09/2019 12:00:00 AM EST eCW1 ([facility]) URINE TEST 11/09/2019 12:00:00 AM EST eCW1 ([facility]) Results ID Date Data Source [id number] 06/22/2020 08:48:26 PM EDT [facility] Name Value Range Interpretation Code Description Data Tere rce(s) Supporting Document(s) CHOLESTEROL @ 205 mg/dL (0-200) H [facility] TRIGLYCERIDE @ 104 mg/dL (30-200) [facility] HDL CHOLESTEROL @ 54 mg/dL (>40) [facility] PER NCEP ATP III GUIDELINES:RESULTS LOWE R THAN 40 MG/DL ARE SUGGESTIVEOF INCREASED RISK FOR CORONARY ARTERYDISEASE. RESULTS > OR = TO 60 MG/DL ARECONSIDERED A NEGATIVE RISK FACTOR. CHOL/HDL RATIO 3.8 RATIO [facility] INTERPRETATION OF CHOL-HDL RATIO CHD RISK FEMALE MALEVERY HIGH >8.3 >14.3HIGH 5.6- 8.3 6.7- 14.3AVERAGE 3.7- 5.6 4.0- 6.7BELOW AVERAGE 2.5- 3.7 2.7- 4.0PROTECTED <2.5 <2.7 LDL CHOL (CALC) 130 mg/dL (<130) [facility] PER NCEP ATP III GUIDELINES: OPTIMAL < 100 NEAR OPTIMAL 100 - 129BORDERLINE HIGH 130 - 159 HIGH 160 - 189 VERY HIGH > 189 ID Date Data Source [id number] 06/22/2020 09:53:22 AM EDT [facility] Name Value Range Interpretation Code Description Data Tere rce(s) Supporting Document(s) &PDF [facility] HADJJk2qGqEZDeDp08/DHUfxXFPfx3ExGCxiRRh4THhrRXYbL1VadZmkZQXBIHvCWvAsJWSUTOAISQEy yKE [file] AgICAgICAgICAgICAgICAgICAgICAgICAgICAgICAg HECrCUUiTEGvGR3MSXJmETJuHBTxVWJuPUOgNYJmLZJyPAGhAIMcENIjBKVeTDEvYWYmDYHjQBQkGOAc ELIaQZKpOGLnHRSjBRWqWBFeNYSfSTQfPJWiVKCoVCAtUMSdYNHeIFGqHAUuFNAmZEEsOM5XIMPyROAg ICAgICAgICAgICAgICAgICAgICAgICAgICAgICAgIC AgICAgICAgICAgICAgICAgICAgICAgICAgICAgICAgICAgICAgICAgICAgICAgICAgICAgICAgICAgIC SkHR3LIZRoJAKmTHPdHPMzKBUxIGQxXRTkTJMlEPXqPXMyONKxVLBhXDGpLCIoFRHfKHUySNVoCSUtYL AgICAgICAgICAgICAgICAgICAgICAgICAgICAgICAg WIZcQSAjQDZvSBMzKU8NGZFxUWNcWUIrRRXcMFMmSGSxCIVmBHCqEWVuTDYiZVGwNLPcCHUsISIySUIe YKXmBFCvEOAeAENiKRTpIREoRBRqLWFyYSBxJSXmLRIjLXTbQUVzEDOiGUWvEDPcHXIuMZZoAW5BJEOw ICAgICAgICAgICAgICAgICAgICAgICAgICAgICAgIC AgICAgICAgICAgICAgICAgICAgICAgICAgICAgICAgICAgICAgICAgICAgICAgICAgICAgICAgICAgIC RfFGAhJO0DSTZkPKQcBMTzYQOwPVNaINNbYKMiCQZwQTKaKVWaTFVmYCUtEEBoEGJbHIDlIGSrFATrPI AgICAgICAgICAgICAgICAgICAgICAgICAgICAgICAg PGQdMTDhUZEiIYWkOSYyOY5WBNUvFQAyHWJjKNUuOPGlNMUtRAAsKHHdJASvGXUoVNRuCJTxOXTuDMIs GUIlQAFrJPEeASDzABPzMJLaPJNqTSPwDHTwONYhFPOsJOXaRJNlYJPwVOFlYSEvPDByCIYkMTCxAX6O ICAgICAgICAgICAgICAgICAgICAgICAgICAgICAgIC AgICAgICAgICAgICAgICAgICAgICAgICAgICAgICAgICAgICAgICAgICAgICAgICAgICAgICAgICAgIC MaQKPpFBBoFD5DQNUgBTExVGZuKCTnZWXoDFDgERNoSEZgRKTxMSQoHHTvDKLjANGjEVGaAGWtMHReNF AgICAgICAgICAgICAgICAgICAgICAgICAgICAgICAg TULrBBNgTLXiPHEzDWPcLBMlJN8DKZ65sHWus6C3HUNyAI6jyil/Oe6FPYimxeSclEGqQX9FIhTyNQ7r jv6UOgHpAU6iqp2OKQwLGzCtR9M5fPOiHIVkFXXDGxCzS13zGHxtIl95BDcnHKJzLnGvNRa0Jx2JZgDr G2pvTDTnTqK5LYTdSsP4CJKdPkOkYPyeHE9Bf5HmsI AyDQo+Pv0YIH5ka2CsCUvjZREbKZ9jca9XTWvUQhRvD5L7fNJeY9L4EPizRj9YFRQqTCYaUOzgAPRCAB xfQR7GTE0cdjO1OM8XtUDbRGGhTVKsmGLfRYv4N46xoDZpUCxaAB5PQYZ+Ingrid+Hu8LCMYoSYEiJOScBo BbMXXDMvBgT11usZRlNYNdDUFrLRNuZf6JDFBvX8Rp mjAiaQgbnwYhBQRzSEOCHG7YUZdbogZgwCSqnGylRP61aMasBI7JNv6AGqZoJE2mil4SnANzLj1WUVGt Dk2XAPYoUJBtTOKgRAO5UWWlNtRsESlfWTKiNWKxLDP8PUNaVVHoBJ6ESmZfIPEfHCuqYSSxUYCbUEAs ps3ZIZUpKACiQTd1NEUyATHbMWVuDKhrIZZgLUSjBO ylXFGlBXZuSV3INdQfHJMiEBXlRAOjODPeKRNado9GVNRjHIPiDpPbYAKpYGMeUXUrBCulLVSjCIP9OC S9KPMgRGFtZB2BCgEoOGMzTNNtGlrhWTYpMBQund9ZVYHeURMbFXI9WZJeMOTkKIAbPFmeKRPgMDI5SF m3ZVRcPPQeEU2TMiTpNKKoFTL3VdJhQUEwSZQjci8T ELAoXPUiGnTkURPqLKYyWHRrRTujDSXtWEJ5SBK3FQVuRHKiNU4USfMiGRPcOGjpWeSeEKZgAZMqzr4T GPDqQQFpIcl7KjXzAOKePIPaBYijFQTpBFG6DTomLRRtRUFuOQ5ACeIrWIFbMPayLkwzXGAtPVDmlw1A GHBnVVEiSZX5MHXgFBAmEIQjVLmtZQPlLKZ6UKd6IG WgIMWhUY0FUbDxXYJzTHz8IQntRUAdXULhrc6NQUVfIHHkSCz8FuCzTTPdZGGvOOj7xgYgzONqOWh0IS 3CZ4DxsaJxPoMDBb9Hs621VSXtZUUmXj8JG0bwTy0vAEOqSFBOUu3JKEl9OjOxKWBhFzVgGNNqP7StHw PeCFRzSwwbDxW8OIrgRNF+JPtoJ0X3U8WfNGAaWOL6 RJB9CsIsIKMzYHHaYJF6FLV0Tj0aTZYUAl2+KBxzhFUxzLvuBWRXVgZ9UIGwEQveAXWMEn3C ID Date Data Source [id number] 04/15/2020 11:11:00 [place] [address] Patient Name: Ursula Celeste Exam Date: 04/15/20 : 1970 Ordering Doctor: Sonia Weeks DO Attending Doctor: Sonia Weeks DO CC: BILATERAL SCREENING DIGITAL MAMMOGRAM WITH CAD COMPARISON: Mammograms dating back to 2014 LAST CLINICAL BREAST EXAM: 2019 MARCELINO Breast Cancer Risk Evaluation (Tyrer-Cuzick Model v.8) This patient - Lifetime risk (to age 85): 17.6% Lifetime population risk (to age 85): 11.4% Probability BRCA 1: 0.14% Probability BRCA 2: 0.26% TECHNIQUE: Bilateral craniocaudal and mediolateral oblique digital mammograms. Computer- aided detection was also utilized. FINDINGS: The breast tissue is heterogeneously dense which may obscure small masses. No primary or secondary signs of malignancy detected. IMPRESSION: Normal mammogram. Recommend routine yearly mammography. This patient has dense breasts. Research has now demonstrated a significant increase in the detection of breast cancer with the addition of screening breast ultrasound in all women with dense breasts (AJR 2015; 204:234-240). Consider the addition of screening breast ultrasound in this patient. BI-RADS 1 - NEGATIVE Professional interpretation performed at Dr. Bong Winters [facility] . End of diagnostic report: [id number] Signed: Jarod Crockett MD 04/16/20 0934 Interpreted by: Jarod CrockettTranscribed by: Jarod Crockett Name Value Range Interpretation Code Description Data Tere rce(s) Supporting Document(s) ID Date Data Source [id number] 04/05/2020 11:07:00 AM EDT [facility] ([facility]) Name Value Range Interpretation Code Description Data Tere rce(s) Supporting Document(s) Surgical pathology study Laboratory test result [facility] ([facility]) FINAL DIAGNOSIS A - Stomach, antrum, biopsy: Mild chronic gastritis, no acute inflammation or features of H. pylori are noted. B - Esophagus, below Z line, biopsies: Fragments of gastroesophageal junctional mucosa with focal intestinal metaplasia, consistent with Childs's esophagus. No dysplasia is identified. 04/06/2020 - 1136 CLINICAL DIAGNOSIS Heartburn, colon screening 04/05/2020 - 1524 GROSS DIAGNOSIS A - Received in formalin labeled "antral biopsy, R/O H. pylori" is a single fragment of bocanegra soft tissue measuring 0.3 cm in largest dimension. All in (A). B - Received in formalin labeled "biopsy below Z line, R/O Childs's" are three fragments of bocanegra soft tissue measuring 0.4 cm each. All in (B). -YZ 04/05/2020 - 1524 Signed Kaelyn Gomes M.D. 04/06/2020 1149 ID Date Data Source [id number] 04/02/2020 12:30:00 PM EDT [facility] Name Value Range Interpretation Code Description Data Tere rce(s) Supporting Document(s) SARS coronavirus 2 RNA [facility] This lab was ordered by [facility] and reported by [facility]. ID Date Data Source [id number] 11/24/2019 04:00:00 PM EST [place] ([facility]) Name Value Range Interpretation Code Description Data Tere rce(s) Supporting Document(s) Reported Physicians See Note Reported Physicians [place] ([facility]) Note: Reported Physicians:Ordering: Sonia Weeks LAttending: Sonia Weeks ID Date Data Source [id number] 11/24/2019 04:00:00 PM EST [facility] Name Value Range Interpretation Code Description Data Tere rce(s) Supporting Document(s) H pylori IgA Ab,S <9.0 units H pylori IgA Ab,S [facility] Note: N egative <9.0 Equivocal 9.0 - 11.0 Positive >11.0Responsible Observer: H pylori IgA Ab H pylori IgA Ab,S [id number] [phone] (A) H pylori IgM Ab,S <9.0 units H pylori IgM Ab,S GRE ENWAY ([facility]) Note: N egative <9.0 Equivocal 9.0 - 11.0 Positive >11.0 This test was developed and its performance characteristics determined by [facility]. It has not been cleared or approved by the Food and Drug Administration. Performed at: - [facility] [address] [id number] [employer] Services Officer: Marcia Bennett MD, Phone: [phone] Observer: H pylori IgM Ab H pylori IgM Ab,S [id number] [phone] (A) H pylori IgG Ab,S 0.45 H pylori IgG Ab,S [facility] ([facility] [facility]) Note: Result Units: Index Value Negative <0.80 Equivocal 0.80 - 0.89 Positive >0.89Responsible Observer: H pylori IgG Ab H pylori IgG Ab,S [id number] 800.5486 (A) ID Date Data Source [id number] 11/24/2019 04:00:00 PM EST LADI ([facility]) Name Value Range Interpretation Code Description Data Tere rce(s) Supporting Document(s) LIPASE 28 U/L Normal [facility]ASE [facility] Note: Responsible Observer: LIP LIPASE 300.4950 (A) ID Date Data Source [id number] 11/24/2019 04:00:00 PM EST LADI ([facility]) Name Value Range Interpretation Code Description Data Tere rce(s) Supporting Document(s) Albumin/Globulin [Mass Ratio] in Amniotic fluid 2.0 G/DL Normal ALB/GLOB RATIO LADI ([facility]) Note: Responsible Observer: A/G RATIO AL B/GLOB RATIO 300.4100 (A) Alkaline phosphatase isoenzyme [Units/volume] in Serum or Plasma 63 U/L Normal ALKALINE PHOSPHATASE LADI ([facility]) Note: Responsible Observer: ALK PHOS ALK BERNA[place]TE PHOSPHATASE 300.3110 (A) Albumin [Mass/volume] in Synovial fluid 4.5 G/DL Normal ALBUMIN LADI ([facility]) Note: Responsible Observer: ALB ALBUMIN 300.3900 (A) Aspartate aminotransferase [Enzymatic activity/volume] in Serum or Plasma 20 U/L Normal AST LADI ([facility]) Note: Responsible Observer: AST/SGOT AST 300.3050 (A) Alanine aminotransferase [Enzymatic activity/volume] in Seru m or Plasma 25 U/L Normal ALT LADI ([facility]) Note: Responsible Observer: ALT/SGPT ALT 300.3100 (A) Bilirubin.total [Mass/volume] in Serum or Plasma 0.3 MG/DL Normal BILIRUBIN,TOTAL LADI ([facility]) Note: Responsible Observer: TOTAL BILI T OTAL BILIRUBIN 300.2700 (A) Urea nitrogen/Creatinine [Mass Ratio] in Serum or Plasma 20 Normal BUN/CREAT RATIO [place] ([facility]) Note: Responsible Observer: BUN/CREAT RA [place] BUN/CREAT RATIO 300.0450 (A) BLOOD UREA NITRO 14 MG/DL Normal BLOOD UREA NITRO [facility] ([facility]) Note: Responsible Observer: BUN BLOOD UR EA NITROGEN 300.0350 (A) CA 9.2 MG/DL Normal CA LADI ([facility]) Note: Responsible Observer: CA CALCIUM 300.2200 (A) Chloride [Moles/volume] in Serum, Plasma or Blood 105 MEQ/L Normal CHLORIDE LADI ([facility]) Note: Responsible Observer: CL CHLORIDE 300.0200 (A) Carbon dioxide, total [Moles/volume] in Serum or Plasma 25 MEQ/L Normal CARBON DIOXIDE LADI ([facility]) Note: Responsible Observer: CO2 CARBON D IOXIDE 300.0250 (A) Creatine/Creatinine [Mass Ratio] in Urine 0.7 MG/DL Melissa l CREATININE LADI ([facility]) Note: Responsible Observer: CREAT MALAIKA NINE 300.0400 (A) GFR 88.6 ML/MIN GFR LADI ([facility]) Note: Stage G2 - Mildly decreased kidne y function The GFR is an estimate of the Glomerular Filtration Rate. It is an aid to assess a patient's renal function. It is not a conclusive diagnosis of kidney disease. GFR normal is >=90 The MDRD GFR calculation is considered valid between the ages of 18 and 75 years only.Responsible Observer: GFR GFR 300.0410 (A) Anion gap in Blood 14 Normal ANION GAP LADI ([facility]) Note: Responsible Observer: ANION GAP AN ION GAP 300.0300 (A) Globulin [Mass/volume] in Serum by calculation 2.2 G/DL Normal GLOBULIN LADI ([facility]) Note: Responsible Observer: GLOB GLOBULI N 300.4050 (A) Glucose [Presence] in Urine 85 MG/DL Normal GLUCOSE [place] ([facility]) Note: Responsible Observer: GLU GLUCOSE 300.0500 (A) Potassium [Mass/volume] in Blood 4.0 MEQ/L Normal POT ASSIUM LADI ([facility]) Note: Responsible Observer: K POTASSIUM 300.0150 (A) Protein [Mass/volume] in Synovial fluid 6.7 G/DL Normal TOTAL PROTEIN LADI ([facility]) Note: Responsible Observer: TP TOTAL PRO TEIN 300.3750 (A) Sodium [Moles/volume] in Serum, Plasma or Blood 140 MEQ/L Normal SODIUM LADI ([facility]) Note: Responsible Observer: NA SODIUM 3 00.0100 (A) ID Date Data Source [id number] 11/24/2019 04:00:00 PM EST LADI ([facility]) Name Value Range Interpretation Code Description Data Tere rce(s) Supporting Document(s) BASO # (AUTO) 0.04 3/uL Normal BASO # (AUTO) [facility] Note: Responsible Observer: BASO # (AUTO ) BASO # (AUTO) 100.1500 (A) BASO % (AUTO) 0.5 % Normal BASO % (AUTO) LADI ([facility]) Note: Responsible Observer: BASO % (AUTO ) BASO % (AUTO) 100.1250 (A) GRAN # (AUTO) 4.30 3/uL Normal GRAN # (AUTO) LADI ([facility]) Note: Responsible Observer: GRAN # (AUTO ) GRAN #(AUTO) 100.1325 (A) EOS % (AUTO) 1.9 % Normal EOS % (AUTO) [facility] Note: Responsible Observer: EOS % (AUTO) EOS % (AUTO) 100.1200 (A) EOS # (AUTO) 0.14 3/uL Normal EOS # (AUTO) LADI [facility] [place] Note: Responsible Observer: EOS # (AUTO) EOS # (AUTO) 100.1450 (A) GRAN % (AUTO) 57.2 % Normal GRAN % (AUTO) LADI ([facility]) Note: Responsible Observer: GRAN % (AUTO ) GRAN % (AUTO) 100.1000 (A) Hemoglobin [Mass/volume] in Blood 14.4 G/DL Normal HE MOGLOBIN LADI ([facility]) Note: Responsible Observer: HGB HEMOGLOB IN 100.0300 (A) Hematocrit [Volume Fraction] of Blood by Automated count 42.5 % Normal HEMATOCRIT LADI ([facility]) Note: Responsible Observer: HCT HEMATOCR IT 100.0400 (A) IG % (AUTO) 0.1 % IG % (AUTO) LADI ([facility]) Note: Responsible Observer: IG % (AUTO) IG % (AUTO) 100.1255 (A) IG # (AUTO) 0.0 3/uL IG # (AUTO) LADI ([facility]) Note: Responsible Observer: IG # (AUTO) IG # (AUTO) 100.1260 (A) LYMPH % (AUTO) 30.9 % Normal LYMPH % (AUTO) LADI ( [facility]) Note: Responsible Observer: LYMPH % (AUT O) LYMPH % (AUTO) 100.1100 (A) Erythrocyte mean corpuscular hemoglobin [Entitic mass] by Automated count 31.9 PG Normal MCH LADI ([facility]) Note: Responsible Observer: MCH MCH 100 .0600 (A) LYMPH # (AUTO) 2.3 k/uL Normal LYMPH # (AUTO) LADI ( [facility]) Note: Responsible Observer: LYMPH # (AUT O) LYMPH # (AUTO) 100.1350 (A) MONO # (AUTO) 0.71 k/uL Normal MONO # (AUTO) LADI ([facility]) Note: Responsible Observer: MONO # (AUTO ) MONO # (AUTO) 100.1400 (A) Erythrocyte mean corpuscular hemoglobin concentration [Mass/volume] by Automated count 33.9 G/DL Normal MCHC [place] ([facility]) Note: Responsible Observer: MCHC MCHC 1 00.0650 (A) Erythrocyte mean corpuscular volume [Entitic volume] by Auto mated count 94.0 FL Normal MCV [place] ([facility]) Note: Responsible Observer: MCV MCV 100 .0550 (A) Erythrocytes [#/volume] in Blood by Automated count 4.52 6/uL Normal RED BLOOD COUNT [place] ([facility]) Note: Responsible Observer: RBC RED BLOO D COUNT 100.0250 (A) Platelets [#/volume] in Plasma by Automated count 342 3/uL Normal PLATELET COUNT [place] ([facility]) Note: Responsible Observer: PLT PLATELET COUNT 100.0850 (A) MPV 10.6 FL Normal MPV LADI ([facility]) Note: Responsible Observer: MPV MPV 100 .0950 (A) MONO % (AUTO) 9.4 % Normal MONO % (AUTO) LADI ([facility]) Note: Responsible Observer: MONO % (AUTO ) MONO% (AUTO) 100.1150 (A) Leukocytes [#/volume] in Blood by Automated count 7.52 3/uL Normal WHITE BLOOD COUNT [place] ([facility]) Note: Responsible Observer: WBC WHITE BL OOD COUNT 100.0150 (A) Erythrocyte distribution width [Ratio] by Automated count 11.9 % Normal RDW [place] ([facility]) Note: Responsible Observer: RDW RDW 100 .0700 (A) ID Date Data Source [id number] 11/24/2019 05:37:00 PM [facility] Name Value Range Interpretation Code Description Data Tere rce(s) Supporting Document(s) WHITE BLOOD COUNT 7.52 10^3/uL 4.00-10.50 [facility] [place] [facility] RED BLOOD COUNT 4.52 10^6/uL 3.90-5.20 N [facility] HEMOGLOBIN 14.4 G/DL 11.5-15.6 [facility] 42.5 % 35.0-46.0 [facility] MCV 94.0 FL 80.0-100.0 [facility] MCH 31.9 PG 27.0-34.0 [facility] MCHC 33.9 G/DL 32-36 [facility] RDW 11.9 % 11.5-14.5 [facility] PLATELET COUNT 342 10^3/uL 130-400 [facility] MPV 10.6 FL 8.7-13.2 [facility] GRAN % (AUTO) 57.2 % 42.0-75.0 [facility] LYMPH % (AUTO) 30.9 % 20.0-51.0 [facility] MONO % (AUTO) 9.4 % 2.0-15.0 [facility] EOS % (AUTO) 1.9 % 0.0-11.0 [facility] BASO % (AUTO) 0.5 % 0.0-2.0 [facility] IG % (AUTO) 0.1 % 1.00-5.00 [facility] IG # (AUTO) 0.0 10^3/uL <0.5 [facility] GRAN # (AUTO) 4.30 10^3/uL 1.50-6.50 [facility] LYMPH # (AUTO) 2.3 k/uL 1.0-5.0 [facility] MONO # (AUTO) 0.71 k/uL 0.20-1.50 [facility] EOS # (AUTO) 0.14 10^3/uL 0.00-1.10 N [place] [employer] BASO # (AUTO) 0.04 10^3/uL 0.00-0.20 [facility] ID Date Data Source [id number] 11/24/2019 06:03:00 PM EST [facility] Name Value Range Interpretation Code Description Data Tere rce(s) Supporting Document(s) SODIUM 140 MEQ/L 135-145 [facility] POTASSIUM 4.0 MEQ/L 3.5-5.3 N [place] CHLORIDE 105 MEQ/L 94-110 [facility] CARBON DIOXIDE 25 MEQ/L 22-33 [facility] ANION GAP 14 5-16 [facility] BLOOD UREA NITRO 14 MG/DL 7-25 [facility] CREATININE 0.7 MG/DL 0.6-1.4 [facility] GFR 88.6 ML/MIN [facility] Stage G2 - Mildly decreased kidney func tion The GFR is an estimate of the Glomerular Filtration Rate. It is an aid to assess a patient's renal function. It is not a conclusive diagnosis of kidney disease. GFR normal is >=90 The MDRD GFR calculation is considered valid between the ages of 18 and 75 years only. BUN/CREAT RATIO 20 8-36 [facility] GLUCOSE 85 MG/DL 70-100 [facility] CA 9.2 MG/DL 8.7-10.5 [facility] BILIRUBIN,TOTAL 0.3 MG/DL 0.1-1.3 [facility] AST 20 U/L 5-40 [facility] ALT 25 U/L 5-48 [facility] ALKALINE PHOSPHATASE 63 U/L 40-140 [facility]th TOTAL PROTEIN 6.7 G/DL 5.9-8.3 [facility] ALBUMIN 4.5 G/DL 3.0-5.1 [facility] GLOBULIN 2.2 G/DL 1.5-3.5 [facility] ALB/GLOB RATIO 2.0 G/DL 1.0-2.7 [facility] ID Date Data Source [id number] 11/27/2019 07:26:00 AM [facility] Name Value Range Interpretation Code Description Data Tere rce(s) Supporting Document(s) H pylori IgG Ab,S 0.45 0.00-0.79 [facility] h Result Units: Index Value Negative <0.80 Equivocal 0.80 - 0.89 Positive >0.89 H pylori IgA Ab,S <9.0 units 0.0-8.9 [facility] Negativ e <9.0 Equivocal 9.0 - 11.0 Positive >11.0 H pylori IgM Ab,S <9.0 units 0.0-8.9 [place] [facility] Negativ e <9.0 Equivocal 9.0 - 11.0 Positive >11.0 This test was developed and its performance characteristics determined by [facility]. It has not been cleared or approved by the Food and Drug Administration. Performed at: RN - [facility] [address] [id number] Airfield Services Officer: Marcia Bennett MD, Phone: [phone] ID Date Data Source [id number] 11/24/2019 06:03:00 PM EST [facility] Name Value Range Interpretation Code Description Data Tere rce(s) Supporting Document(s) LIPASE 28 U/L 6-51 N [facility] Procedure Social History Code Duration Value Status Description Data Source(s ) Smoking 08/27/2020 12:00:00 AM EST Former smoker completed Former smoker [employer] ([facility]) Smoking 08/26/2020 12:00:00 AM EST Ex-smoker (finding) complet ed Ex-smoker (finding) [place] ([facility]) Smoking 05/01/2020 12:00:00 AM EDT Patient is a former smoker completed Patient is a former smoker [facility]) Smoking 03/09/2020 12:00:00 AM EDT Ex-smoker (finding) complet ed Ex-smoker (finding) [place] ([facility]) Smoking 01/14/2020 12:00:00 AM EDT Ex-smoker (finding) complet ed Ex-smoker (finding) [place] ([facility]) Smoking 11/24/2019 12:00:00 AM EST Ex-smoker (finding) complet ed Ex-smoker (finding) [place] ([facility]) Vital Signs ID Date Data Source [id number] Name Value Range Interpretation Code Description Data Source(s) PhenX - pain, abdominal - type and intensity protocol 2 2 LADI ([facility]) pt denies any other vitals.SprinsLPN Body temperature 97.5 [degF] 97.5 [degF] [facility] ([facility]) pt denies any other vitals.SprinsLPN Body mass index (BMI) [Ratio] 28.1 kg/m2 28.1 k g/m2 [facility] ([facility]) Body height 63 [in_i] 63 [in_i] [facility]) 5'3" Body weight 158.44 [lb_av] 158.44 [lb_av] MEDEN T ([facility], [facility]) Body temperature 98.4 [degF] 98.4 [degF] [facility], [facility]) Oxygen saturation in Arterial blood by Pulse oximetry 98 % 98 % [facility] ([facility], [facility]) Heart rate 71 /min 71 /min [facility] ([facility], [facility]) Diastolic blood pressure 86 mm[Hg] 86 mm[Hg] [facility] ([facility], [facility]) Systolic blood pressure 149 mm[Hg] 149 mm[Hg] [facility], [facility]) Body weight 78.643 kg 78.643 kg [facility] ([facility]) Body mass index (BMI) [Ratio] 30.7 kg/m2 30.7 k g/m2 [facility] Heart rate 62 /min 62 /min [facility] Diastolic blood pressure 86 mm[Hg] 86 mm[Hg] [facility] Systolic blood pressure 129 mm[Hg] 129 mm[Hg] [facility] Body weight 173.38 [lb_av] 173.38 [lb_av] MEDEN T ([facility]) Temp 97.8 Body height 63 [in_i] 63 [in_i] [facility] 5'3" PhenX - pain, abdominal - type and intensity protocol 0 0 LADI ([facility]) Weight and Temperature obtained by the p atient from home today.Pain assessmend done with the patient over the phone. PLewislPN Body weight 173.25 [lb_av] 173.25 [lb_av] [address] ([facility]) Weight and Temperature obtained by the p atient from home today.Pain assessmend done with the patient over the phone. PLewislPN Body temperature 95.4 [degF] 95.4 [degF] [place] [facility] Weight and Temperature obtained by the p atient from home today.Pain assessmend done with the patient over the phone. PLewislPN Body mass index (BMI) [Ratio] 32.2 kg/m2 32.2 k g/m2 [facility] ([facility]) Body height 63 [in_i] 63 [in_i] [facility] ([facility]) 5'3" Body weight 182.00 [lb_av] 182.00 [lb_av] MEDEN T ([facility]) Body temperature 97.9 [degF] 97.9 [degF] [facility] ([facility]) Oxygen saturation in Arterial blood by Pulse oximetry 98 % 98 % [facility] ([facility]) Respiratory rate 18 /min 18 /min [facility] ( [facility]) Heart rate 83 /min 83 /min [facility] ([facility]) Diastolic blood pressure 100 mm[Hg] 100 mm[Hg] [facility] ([facility]) Systolic blood pressure 158 mm[Hg] 158 mm[Hg] M EDENT ([facility]) PhenX - pain, abdominal - type and intensity protocol 0 0 LADI ([facility]) Inhaled oxygen concentration 21 % 21 % LADI ([facility]) Inhaled oxygen flow rate 0 L/min 0 L/min LADI ([facility]) Oxygen saturation in Arterial blood by Pulse oximetry 98 % 98 % LADI ([facility]) PhenX - pain, abdominal - type and intensity protocol 2 2 LADI ([facility]) Body surface area Derived from formula 1.83 m2 1.83 m2 LADI ([facility]) Body mass index (BMI) [Ratio] 31.9 kg/m2 31.9 k g/m2 LADI ([facility]) Body weight 177.0125 [lb_av] 177.0125 [lb_av] G [place] ([facility]) Body height 62.5 [in_i] 62.5 [in_i] LADI ([facility]) Body temperature 97.9 [degF] 97.9 [degF] [place] ([facility]) Respiratory rate 18 /min 18 /min LADI ([facility]) Heart rate rhythm 1 1 [place] ([facility]) Heart rate 70 /min 70 /min LADI ([facility]) Diastolic blood pressure 90 mm[Hg] 90 mm[Hg] LADI ([facility]) Systolic blood pressure 138 mm[Hg] 138 mm[Hg] G [place] ([facility]) Diastolic blood pressure 83 mm[Hg] 83 mm[Hg] eCW1 ([facility]) Systolic blood pressure 186 mm[Hg] 186 mm[Hg] e CW1 ([facility]) Body temperature 97.2 [degF] 97.2 [degF] eCW1 ( [facility]) Respiratory rate 18 /min 18 /min eCW1 ([facility]) Heart rate 69 /min 69 /min eCW1 ([facility]) Body mass index (BMI) [Ratio] 31.24 kg/m2 31.24 kg/m2 eCW1 ([facility]) Body height [in_us] eCW1 ([facility] Body weight Measured 182 [lb_av] 182 [lb_av] eC W1 ([facility]) Patient Treatment Plan of Care Planned Activity Planned Date Details Description Data Source (s) Levothyroxine Sodium 0.137 MG Oral Tablet [Synthroid] 08/13/2020 12:00:00 AM [facility] ([facility]) Permethrin 50 MG/ML Topical Cream [facility] Mupirocin 0.02 MG/MG Topical Ointment 01/14/2020 12:00:00 AM EDT [place] ([facility]) Levothyroxine Sodium 0.137 MG Oral Tablet [Synthroid] 12/09[facility]2019 [facility] Ondansetron 8 MG Disintegrating Oral Tablet 11/26/2019 12:00:00 AM EST [place] ([facility]) Omeprazole 40 MG Delayed Release Oral Capsule 11/24/2019 12:00:00 A M [facility] ([facility]) Ranitidine 75 MG Oral Tablet [Zantac] 11/09/2019 12:00:00 AM EST [facility] ([facility]) Ibuprofen 600 MG Oral Tablet 10/07/2019 12:00:00 AM EST LADI ([facility]) Ibuprofen 600 MG Oral Tablet 09/05/2019 12:00:00 AM EST LADI ([facility]) Levothyroxine Sodium 0.137 MG Oral Tablet [Synthroid] 02/14/2019 [facility]
--- OUTSIDE RECORDS SUMMARY | 2020-11-17 15:51 | CCD ---
Author Author [facility] Address Unknown Phone Unavailable Care Team Providers Care Neon Molder Name Role Phone JacksonEmilyestela Unavailable Durga De [...] Unavailable Unavailable Asia Jimenez MD Unavailable Unavailable sAia Jimenez MD Unavailable Unavailable Asia Jimenez MD [...] Campanaro, Mare Mary Ellen PA Unavailable Unavailable Hays, A Lara DIRECTOR MEDICAL SAFETY Unavailable Unavailable Hays, A Lara DIRECTOR MEDICAL SAFETY Unavailable Unavailable Spencer, A Lara DIRECTOR MEDICAL SAFETY Unavailable Unavailable Hays, A Lara DIRECTOR MEDICAL SAFETY Unavailable Unavailable Spencer, A Lara DIRECTOR MEDICAL SAFETY Unavailable Unavailable Spencer, A Lara DIRECTOR MEDICAL SAFETY Unavailable Unavailable Spencer, A Lara DIRECTOR MEDICAL SAFETY Unavailable Unavailable Hays, A Lara DIRECTOR MEDICAL SAFETY Unavailable Unavailable Hays, A Lara DIRECTOR MEDICAL SAFETY Unavailable Unavailable Hays, A Lara DIRECTOR MEDICAL SAFETY Unavailable Unavailable Hays, A Lara DIRECTOR MEDICAL SAFETY Unavailable Unavailable Hays, A Lara DIRECTOR MEDICAL SAFETY Unavailable Unavailable Hays, A Lara DIRECTOR MEDICAL SAFETY Unavailable Unavailable Spencer, A Lara DIRECTOR MEDICAL SAFETY Unavailable Unavailable Spencer, A Lara DIRECTOR MEDICAL SAFETY Unavailable Unavailable Spencer, A Lara DIRECTOR MEDICAL SAFETY Unavailable Unavailable Spencer, A Lara DIRECTOR MEDICAL SAFETY Unavailable Unavailable Hays, A Lara DIRECTOR MEDICAL SAFETY Unavailable Unavailable Spencer, A Lara DIRECTOR MEDICAL SAFETY Unavailable Unavailable Hays, A Lara DIRECTOR MEDICAL SAFETY Unavailable Unavailable Hays, A Lara DIRECTOR MEDICAL SAFETY Unavailable Unavailable Hays, A Lara DIRECTOR MEDICAL SAFETY Unavailable Unavailable Ray, L Sonia Unavailable Unavailable [...] Unavailable Cyril Solorzano MD Unavailable Unavailable Cyril Sloorzano MD Unavailable Unavailable Cyril Solorzano MD Unavailable Unavailable Cyril Solorzano MD Unavailable Unavailable Cyril Solorzano MD Unavailable Unavailable Piper, Myranda DIRECTOR MEDICAL SAFETY Unavailable Unavailable Piper, Myranda DIRECTOR MEDICAL SAFETY Unavailable Unavailable Piper, Myranda DIRECTOR MEDICAL SAFETY Unavailable Unavailable Piper, Myranda DIRECTOR MEDICAL SAFETY Unavailable Unavailable Piper, Myranda DIRECTOR MEDICAL SAFETY Unavailable Unavailable Piper, Myranda DIRECTOR MEDICAL SAFETY Unavailable Unavailable Piper, Myranda DIRECTOR MEDICAL SAFETY Unavailable Unavailable Piper, Myranda DIRECTOR MEDICAL SAFETY Unavailable Unavailable Piper, Myranda DIRECTOR MEDICAL SAFETY Unavailable Unavailable Piper, Myranda DIRECTOR MEDICAL SAFETY Unavailable Unavailable Piper, Myranda DIRECTOR MEDICAL SAFETY Unavailable Unavailable Taylor BARBOSA/Caryn IRWIN Unavailable SAMY [...] is protected by Article 27-F of the [facility] Public Health law. If you continue you may have access to information: Regarding HIV / AIDS; Provided by facilities licensed or operated by the [facility] Office of Mental Health; or Provided by the [facility] Office for People With Developmental Disabilities. If such information is present, then the following [facility] mandated warning applies: This information has been [...] law may result in a fine or custodial sentence or both. A general authorization for the release of medical or other information is NOT sufficient authorization for further disc losure. Advance Directives Directive Description Cytotechnologist/Histotechnologist Staffing Coordinator Status Observation Descr iption Data Source(s) Ebola Screening Performed completed Ebol a Screening Performed [facility] ([facility]) Note: Within the last month, have you tr aveled outside of the [place]? -NO Allergies and Adverse Reactions Type Description Substance Reaction Status Data Source(s ) Penicillin (For Allergies Use Only) Penicillin (For Allergie s Use Only) Penicillin (For Allergies Use Only) Anaphylaxis Active [facility] ([facility]) Family History Family Member Name Family [...] 08:10:00 AM EST [facility] ([facility]) Outpatient<td ID="encounterTypeDescripti onID0">Acute Telehealth Zoom</td><td>Cyril Solorzano SIDER</td><td>[facility]</td><td>08/26/2020</td><td><content ID="encounterDiagnosisID0-0">Contact Dermatitis</content></td> Attender: Cyril Solorzano MD [facility] 08/26/20 10:00:00 AM EST - 08/26/2020 11:59:00 PM EST Contact Dermatitis [facility] ([facility]) Contact Dermatitis Attender: Simona CABALLERO Jordan 1 10/13/2019 03:08:00 PM EST - 08/13/2020 03:08:00 PM EST [facility] ([facility]) Unknown<td ID="encounterTypeDescriptionI D1">Correspondence</td><td>Sonia Weeks DO</td><td></td><td>08/12/2020</td><td></td> Attender: Sonia Weeks 08/12/2020 04:28:00 PM EST - 08/12/2020 11:59:00 PM EST [facility] ([facility]) Unknown<td ID="encounterTypeDescriptionI D2">Correspondence</td><td>Jaqui Mo RN</td><td></td><td>07/22/2020</td><td></td> Attender: Jacqueline Luong RN 07/22/2020 02:11:00 PM EDT - 07/22/2020 11:59:00 PM EDT [facility] ([facility]) Unknown<td ID="encounterTypeDescriptionI D3">[Patient Encounter]</td><td>Caryn Vazquez SENIOR MECHANICAL DEVELOPMENT ENGINEER/EQUIPMENT RECORDS SUPERVISOR</td><td></td><td>07/07/2020</td><td></td> Attender: Caryn BARBOSA/DOO 07/07/2020 11:29:00 AM EDT - 07/07/2020 11:59 :00 PM EDT [facility] Unknown<td ID="encounterTypeDescriptionI D4">Chart Update</td><td>Sonia Weeks DO</td><td></td><td>06/22/2020</td><td></td> Attender: Sonia Micky 06/22/2020 05:51:00 PM EDT - 06/22/2020 11:59:00 PM EDT [facility] Outpatient Attender: Santiago KAISEReferrer: Leonel DE LEÓN-SJPNessaRADHA 06/22/2020 09:05:58 AM EDT - 06/22/2020 09:42:54 AM EDT [facility] Outpatient Referrer: Santiago ED LEÓN-SJPNessaRADHA 05/26 12:00:00 AM EDT [facility] Unknown<td ID="encounterTypeDescriptionI D5">[Patient Encounter]</td><td>Caryn Vazquez SENIOR MECHANICAL DEVELOPMENT ENGINEER/EQUIPMENT RECORDS SUPERVISOR</td><td></td><td>06/11/2020</td><td></td> Attender: Caryn Vazquez SAIL LAY OUT WORKER/DOO 06/11/2020 10:57:00 AM EDT - 06/11/2020 11:59 :00 PM EDT [facility] ([facility]) Attender: Simona Jimneez MD [facility] [place] 01:31:00 PM EDT - 06/10/2020 01:31:00 PM EDT [facility] ([facility]) Outpatient Attender: Santiago DE LEÓN-SJP.RADHA 09/2019 12:00:00 AM EDT - 05/25/2020 03:48:21 PM EDT [facility] Outpatient Attender: Mary Ellen davidson 05/01/2020 04:35:00 PM EDT [facility] ([facility]) Unknown<td ID="encounterTypeDescriptionI D6">D New Patient - 30</td><td>Lore Hernandez DDS</td><td>[facility]</td><td>04/26/2020</td><td></td> Attender: Lore Paynedorian Hernandez DDS [facility] 04/26/2020 03:33:00 PM EDT - 04/26/2020 04:05:00 PM EDT [facility] ([facility]) Unknown<td ID="encounterTypeDescriptionI D7">Referral Order</td><td>Sonia L Ray DO</td><td></td><td>04/19/2020</td><td></td> Attender: Sonia Weeks 04/19/2020 08:18:00 AM EDT - 04/19/2020 11:59:00 PM EDT [facility] ([facility]) Unknown<td ID="encounterTypeDescriptionI D8">Referral Order</td><td>Sonia L Ray DO</td><td></td><td>04/16/2020</td><td><content ID="encounterDiagnosisID8-0"> Assessment of Mammogram Inconclusive Due To Dense Breasts</content></td> Attender: Sonia Weeks 04/16/2020 02:37:00 PM EDT - 04/16/2020 11:59:00 PM EDT Assessment of Mammogram Inconclusive Due To Dense BreastsAssessment of Mammogram Inconclusive Due To Dense BreastsAssessment of Mammogram Inconclusive Due To Dense Breasts [facility] Assessment of Mammogram Inconclusive Due To Dense Breasts Assessment of Mammogram Inconclusive Due To Dense Breasts Assessment of Mammogram Inconclusive Due To Dense Breasts Unknown<td ID="encounterTypeDescriptionI D9">Referral Order</td><td>Sonia L Ray DO</td><td></td><td>04/15/2020</td><td></td> Attender: Sonia Weeks 04/15/2020 12:45:00 PM EDT - 04/15/2020 11:59:00 PM EDT [facility] ([facility]) Outpatient Attender: Sonia Weeks 04/15/2020 10:28:00 AM EDT screening [facility] screening Unknown<td ID="encounterTypeDescriptionI D10">Referral Order</td><td>Sonia Weeks DO</td><td></td><td>04/13/2020</td><td></td> Attender: Sonia Micky 04/13/2020 09:59:00 AM EDT - 04/13/2020 11:59:00 PM EDT [facility] ([facility]) Unknown<td ID="encounterTypeDescriptionI D11">Chart Update</td><td>Sonia Weeks DO</td><td></td><td>04/08/2020</td><td></td> Attender: Soniatoro Weeks 04/08/2020 03:31:00 PM EDT - 04/08/2020 11:59:00 PM EDT [facility] ([facility]) Outpatient Attender: Jeffy De Leon MD Main Office 03/16/2020 03:15:00 PM [facility] Outpatient<td ID="encounterTypeDescripti onID12">Primary Care Telehealth FaceTime</td><td>Sonia Weeks DO</td><td>[facility]</td><td>03/09/2020</td><td><content ID="tbffeiwxpDfpqzrsclVS90-7"> Coronary Artery Disease</content>, <content ID="yiqguhtchExtwbltkoNK85- 1">Esophageal Reflux</content>, <content ID="yviwljtnkBibmwjdcrDC64-5">Hypothyroidism</content>, <content ID="xkqmnfqetPcjjahdbwAA38-4">Dysplastic Nevus</content>, <content ID="boqelwiojLnjchcrvbTI70-1">Assessment of Visit For: Screening Exam Malignant Neoplasm Breast</content>, <content ID="qdxmhcnojXjqzrxwesQE14-8">Scabies</content></td> Attender: Soniatoro Weeks [facility] 03/09/2020 02:46:00 PM EDT - 03/09/2020 04:00:31 [...] Artery DiseaseCoronary Artery DiseaseCoronary Artery Disease HypothyroidismHypothyroidismHypothyroidismHypothyroidismHypothyroidism [place] ([facility]) Scabies Dysplastic Nevus Scabies Dysplastic Nevus [...] PM EDT - 03/03/2020 11:59:00 PM EDT [place] ([facility]) Outpatient Attender: Myranda hilton 02/06/2020 04:30:00 PM EDT [facility] ([facility]) Unknown<td ID="encounterTypeDescriptionI D14">Correspondence</td><td>Sonia Weeks DO</td><td></td><td>02/03/2020</td><td></td> Attender: Sonia Weeks 02/03/2020 03:47:00 PM EDT - 02/03/2020 11:59:00 PM EDT [place] ([facility]) Outpatient<td ID="encounterTypeDescripti onID15">Primary Care Telehealth FaceTime</td><td>Lara Palmer NP</td><td>[facility]</td><td>01/14/2020</td><td><content ID="vscsmfzxpDuultgldeBW05-2">[place]</content></td> Attender: Lara Palmer NP [facility] 01/14/2020 02:10:00 PM EDT - 01/14/2020 04:25:31 PM ED T [facility]igoImp[facility]igoImpetigoImpetigo [place] ([facility]) [facility] Outpatient<td ID="encounterTypeDescripti onID16">Medication Order</td><td>Sonia Weeks DO</td><td></td><td>11/26/2019</td><td></td> Attender: Sonia Weeks 11/26/2019 10:54:00 AM EST - 11/26/2019 11:59:00 PM EST [facility] ([facility]) Unknown<td ID="encounterTypeDescriptionI D17">Referral Order</td><td>Sonia Samuels Ray DO</td><td></td><td>11/25/2019</td><td></td> Attender: Sonia Weeks 11/25/2019 10:16:00 AM EST - 11/25/2019 11:59:00 PM EST [facility] ([facility]) Outpatient Attender: Sonia Weeks 11/24/2019 03:56:00 PM EST Lab [facility] Lab Outpatient<td ID="encounterTypeDescripti onID18">Walk-In</td><td>Sonia L Ray DO</td><td>[facility]</td><td>11/24/2019</td><td><content ID="lqezuoffuSpmbjyskgYW71-3">Esophageal Reflux</content></td> Attender: Sonia Weeks [facility] 11/24/2019 02:42:00 PM EST - 11/24/2019 03:46:54 PM EST Esophageal RefluxEsophageal RefluxEsophageal RefluxEsophageal RefluxEsophageal RefluxEsophageal RefluxEsophageal Reflux [facility] Esophageal Reflux Esophageal Reflux Esophageal Reflux Esophageal Reflux Esophageal Reflux Esophageal Reflux Esophageal Reflux Outpatient 11/18/2019 09:49:00 AM EST [facility] Unknown<td ID="encounterTypeDescriptionI D19">Correspondence</td><td>Sonia Weeks DO</td><td></td><td>11/18/2019</td><td></td> Attender: Sonia Weeks 11/18/2019 07:42:00 AM EST - 11/18/2019 11:59:00 PM EST [facility] ([facility]) [facility] [address] [address] 11/09/2019 12:00:00 AM EST eCW1 ([facility]) Outpatient<td ID="encounterTypeDescripti onID20">Medication Order</td><td>Sonia Weeks DO</td><td></td><td>10/07/2019</td><td></td> Attender: Sonia Weeks 10/07/2019 09:22:00 AM EST - 10/07/2019 11:59:00 PM EST [facility] ([facility]) Medications Medication Brand Name Start Date [...] 03/16/2020 12:00:00 AM EDT ORAL active [facility] ([facility]) Suprep Bowel Prep Kit Suprep Bowel Prep Kit 03/16/2020 12:00:00 AM EDT active [facility] ([facility]) Permethrin 50 MG/ML Topical Cream Permethrin 5% Corporate Lawyer al Cream Permethrin 5% External Cream 03/09/2020 12:00:00 AM EDT com pleted permethrin 50 MG/ML Topical Cream [place] ([facility]) Prednisone 20 MG Oral Tablet Prednisone 02/06/2020 12:00:00 AM EDT completed [facility] ([facility]) Calamine 02/06/2020 12:00:00 AM EDT completed [facility] ([facility]) Diphenhydramine Hydrochloride 25 MG Oral Capsule Diphenhydra mine HCL 02/06/2020 12:00:00 AM EDT ORAL completed [facility] ([facility]) Permethrin 50 MG/ML Topical Cream Permethrin 02/01/2020 12:00:00 AM EDT completed [facility] ([facility]) 5 % 02/01/2020 12:00:00 AM EDT cream [...] EDT active mupirocin 0.02 MG/MG Topical Ointment [place] ([facility]) Levothyroxine Sodium 0.137 MG Oral Table t [Synthroid] Synthroid 137 MCG Oral Tablet Synthroid 137 MCG Oral Tablet 12/09/2019 12:00:00 AM EDT 1 aborted levothyroxine sodium 0.137 MG Or al Tablet [Synthroid] [place] ([facility]) Ondansetron 8 MG Disintegrating Oral Tab let Ondansetron 8 MG Oral Tablet Disintegrating Ondansetron 8 MG Oral Tablet Disintegrating 11/26/2019 12:00:00 AM EST 1 completed ondansetron 8 MG Disintegrating Oral Tablet [place] ([facility]) Omeprazole 40 MG Delayed Release Oral Ca psule Omeprazole 40 MG Oral Capsule Delayed Release Omeprazole 40 MG Oral Capsule Delayed Release 11/24/19 12:00:00 AM EST completed omeprazole 40 MG Delayed Release Oral Capsule [facility] Ranitidine 75 MG Oral Tablet [Zantac] Zantac 75 75 MG Zantac 75 75 MG 11/09/2019 12:00:00 AM EST active 1 table t as needed eCW1 ([facility]) Ibuprofen 600 MG Oral Tablet Ibuprofen 600 MG Oral Tablet 12:00:00 AM EST active ibuprofen 600 MG Oral Tablet [facility] ([facility]) Ibuprofen 600 MG Oral Tablet Ibuprofen 600 MG Oral Tablet 12:00:00 AM EST aborted ibuprofen 600 MG Oral Tablet [facility] ([facility] Levothyroxine Sodium 0.137 MG Oral Table t [Synthroid] Synthroid 137MCG Oral Tablet Synthroid 137MCG Oral Tablet 02/14/2019 12:00:00 AM EDT 1 aborted levothyroxine sodium 0.137 MG Or al Tablet [Synthroid] [facility] ([facility]) Insurance Providers Payer name Policy type / Coverage type Policy ID Covered democrat ID Covered democrat's relationship to maki Policy Maki Plan Information [facility] [id number] SP [id number] UnitedHealthcare Other 0 Self 0 UnitedHealthcare Other [address] [facility] MEDICAID [id number] [place] [id number] [facility] PLAN [facility] [id number] SP [id number] SELF PAY [facility] [id number] SP [id number] UnitedHealthcare Other 0 Self 0 UnitedHealthcare Other 0 Self 0 UnitedHealthcare Other 0 Self 0 UnitedHealthcare Other 0 Self [address] [facility] COMMUNITY [facility] [id number] SP [id number] UnitedHealthcare Other 0 Self 0 UNITED HEALTHCARE(MCAID) O [id number] S [id number] UnitedHealthcare Other 0 Self 0 UnitedHealthcare Other 0 Self 0 UnitedHealthcare Other 0 Self 0 United CR/Community [facility] Health Maintenance Organization (HMO) [id number] Self [id number] UnitedHealthcare Other 0 Self [address]EL[address] [facility] COMMUNITY [facility] [id number] SP [id number] UnitedHealthcare Other [address] [facility] COMMUNITY [facility] [id number] SP [id number] UnitedHealthcare Other 0 Self 0 UnitedHealthcare Other 0 Self 0 United HLCR/Community [place] Health Maintenance Organization (O) [id number] Self [id number] UnitedHealthcare Other 0 Self 0 UnitedHealthcare Other 0 Self 0 UnitedHealthcare Other 0 Self 0 [facility] Organization (HMO) Self [facility] COMMUNITY PLAN [id number] SP [id number] [employer]ICE [id number] SP [id number] [facility] COMMUNITY PLAN [id number] SP [id number] [facility] [address] [id number] SP [id number] [facility] [address] [id number] SP [id number] Problems, Conditions, and Diagnoses Code Display Name Description Problem Type Effective Dates Data Source(s) 97615 Contact Dermatitis Contact Dermatitis Problem 0 12:00:00 AM EST [facility] ([facility]) 793.82 Mammogram Inconclusive Due To Dense [place] sts Mammogram Inconclusive Due To Dense Breasts Finding 04/16/2020 12:00:00 AM EDT [facility] ([facility]) 793.82 Mammogram Inconclusive Due To Dense [place] sts Mammogram Inconclusive Due To Dense Breasts Finding 04/16/2020 12:00:00 AM EDT [facility] ([facility]) 793.82 Mammogram Inconclusive Due To Dense [place] sts Mammogram Inconclusive Due To Dense Breasts Finding 04/16/2020 12:00:00 AM EDT [facility] ([facility]) V76.51 Encounter for screening for malignant ne oplasm of colon Encounter for screening for malignant neoplasm of colon Problem 04/08/2020 12:00:0 0 AM EDT [facility] ([facility]) 455.0 Hemorrhoids Internal Hemorrhoids Internal Problem 04/08/2020 12:00:00 AM EDT [facility] ([facility]) 48625 Gastritis Gastritis Problem 04/08/2020 12:00:00 AM ED T [facility] ([facility]) 97280 Childs's Esophagus Childs's Esophagus Problem 0 04/08/2020 12:00:00 AM EDT [facility] ([facility]) V76.51 Encounter for screening for malignant ne oplasm of colon Encounter for screening for malignant neoplasm of colon Problem 04/08/2020 12:00:0 0 AM EDT [facility] ([facility]) 455.0 Hemorrhoids Internal Hemorrhoids Internal Problem 04/08/2020 12:00:00 AM EDT [facility] ([facility]) 68291 Gastritis Gastritis Problem 04/08/2020 12:00:00 AM ED T [facility] ([facility]) 56557 Childs's Esophagus Childs's Esophagus Problem 0 04/08/2020 12:00:00 AM EDT [facility] ([facility]) V76.51 Encounter for screening for malignant ne oplasm of colon Encounter for screening for malignant neoplasm of colon Problem 04/08/2020 12:00:0 0 AM EDT [facility] ([facility]) 455.0 Hemorrhoids Internal Hemorrhoids Internal Problem 04/08/2020 12:00:00 AM EDT [facility] 48146 Gastritis Gastritis Problem 04/08/2020 12:00:00 AM ED T [facility] ([facility]) 11603 Childs's Esophagus Childs's Esophagus Problem 0 04/08/2020 12:00:00 AM EDT [facility] V76.51 Encounter for screening for malignant ne oplasm of colon Encounter for screening for malignant neoplasm of colon Problem 04/08/2020 12:00:0 0 AM EDT [facility] ([facility]) 455.0 Hemorrhoids Internal Hemorrhoids Internal Problem 04/08/2020 12:00:00 AM EDT [facility] 07792 Gastritis Gastritis Problem 04/08/2020 12:00:00 AM ED T [facility] ([facility]) 71179 Childs's Esophagus Childs's Esophagus Problem 0 04/08/2020 12:00:00 AM EDT [facility] ([facility] [id number] Screening for malignant neoplasm of colo n Screening for malignant neoplasm of colon Problem 03/16/2020 12:00:00 AM EDT [facility] ([facility]) 133.0 Scabies Scabies Problem 03/09/2020 12:00:00 AM ED T [facility] ([facility]) 238.2 Dysplastic Nevus Dysplastic Nevus Problem 03/09/2020 12 :00:00 AM EDT [facility] ([facility]) 133.0 Scabies Scabies Problem 03/09/2020 12:00:00 AM ED T [facility] ([facility]) 238.2 Dysplastic Nevus Dysplastic Nevus Problem 03/09/2020 12 :00:00 AM EDT [facility] ([facility]) 133.0 Scabies Scabies Problem 03/09/2020 12:00:00 AM ED T [facility] 238.2 Dysplastic Nevus Dysplastic Nevus Problem 03/09/2020 12 :00:00 AM EDT [facility] 133.0 Scabies Scabies Problem 03/09/2020 12:00:00 AM ED T [facility] 238.2 Dysplastic Nevus Dysplastic Nevus Problem 03/09/2020 12 :00:00 AM EDT [facility] ([facility]) 133.0 Scabies Scabies Problem 03/09/2020 12:00:00 AM ED T [facility] 238.2 Dysplastic Nevus Dysplastic Nevus Problem 03/09/2020 12 :00:00 AM EDT [facility] 530.81 Esophageal Reflux Esophageal Reflux Problem 11/24/2019 [...] pain Diagnosis 06/22/2020 09 :05:58 AM EDT [facility] E78.49 Other hyperlipidemia Other hyperlipidemia Diagnosis 05/25/2020 02:45:44 PM EDT [facility] I25.119 Atherosclerotic heart diseas e of [place] coronary artery with unspecified angina pectoris Atherosclerotic heart disease of [place] Diagnosis 05/25/2020 02:45:44 PM EDT [facility] Z12.31 Encounter for screening mammogram for ma [...] Cancer Screening 04/26/2020 12:00:00 AM EDT [facility] ([facility]) Periodic Oral Evaluation Periodic Oral Evaluation 04/26/2020 12:00: 00 AM EDT [facility] ([facility]) Panoramic radiographic image Panoramic radiographic image 12:00:00 AM EDT [facility] ([facility]) Periodic Oral Evaluation, [facility] Periodic Oral Evaluati on, [facility] 04/26/2020 12:00:00 AM EDT [facility] ([facility]) UPPER NDSC BIOPSY SINGLE/MULTIPLE 04/05/2020 12:00:00 AM EDT [facility] ([facility]) COLONOSCOPY FLX DX W/WO COLLJ SPECIMENS 04/05/2020 12: 00:00 AM EDT [facility] ([facility]) Ekg With Interpretation and Report Ekg With Interpretation a nd Report 11/24/2019 12:00:00 AM EST [facility] ([facility]) Ekg With Interpretation and Report Ekg With Interpretation a nd Report 11/24/2019 12:00:00 AM EST [facility] ([facility]) URINE-NO MICRO 11/09/2019 12:00:00 AM EST eCW1 ([facility]) URINE TEST 11/09/2019 12:00:00 AM EST eCW1 ([facility]) Results ID Date Data Source [id number] 06/22/2020 08:48:26 PM EDT [facility] Name Value Range Interpretation Code Description Data Tere rce(s) Supporting Document(s) CHOLESTEROL @ 205 mg/dL (0-200) H [facility] TRIGLYCERIDE @ 104 mg/dL (30-200) [facility] HDL CHOLESTEROL @ 54 mg/dL (>40) [facility] PER NCEP ATP III GUIDELINES:RESULTS LOWE R THAN 40 MG/DL ARE SUGGESTIVEOF INCREASED RISK FOR CORONARY ARTERYDISEASE. RESULTS > OR = TO 60 MG/DL ARECONSIDERED A NEGATIVE RISK FACTOR. CHOL/HDL RATIO 3.8 RATIO [facility] INTERPRETATION OF CHOL-HDL RATIO CHD RISK FEMALE MALEVERY HIGH >8.3 >14.3HIGH 5.6- 8.3 6.7- 14.3AVERAGE 3.7- 5.6 4.0- 6.7BELOW AVERAGE 2.5- 3.7 2.7- 4.0PROTECTED <2.5 <2.7 LDL CHOL ([facility]) 130 mg/dL (<130) H [facility] PER NCEP ATP III GUIDELINES: OPTIMAL < 100 NEAR OPTIMAL 100 - 129BORDERLINE HIGH 130 - 159 HIGH 160 - 189 VERY HIGH > 189 ID Date Data Source [id number] 06/22/2020 09:53:22 AM EDT [facility] Name Value Range Interpretation Code Description Data Tere rce(s) Supporting Document(s) &PDF [facility] [id number]/NRPakOCBle9WsRFgvGCi1XFnkHVIzP6OdrEaoUHLEXZuWFmGcFECRMRVPBBKk yKE [file] AgICAgICAgICAgICAgICAgICAgICAgICAgICAgICAg WGUhVQMqTQArOS8GMSMfTSNqHVIlHDLsOPVtTVRwACYdHAElLQIrQFAcYARzWFZlCTLxKXOvZPEuDINa VAYrWOSmBHYzPFSlYXEgNDEtIYNtGKZjYQPxJIFaDUEkPCOpJIXsPIQkFKSrYFFmAOWcEE4YVUXkDULq ICAgICAgICAgICAgICAgICAgICAgICAgICAgICAgIC AgICAgICAgICAgICAgICAgICAgICAgICAgICAgICAgICAgICAgICAgICAgICAgICAgICAgICAgICAgIC EeIB2MHFNkBUHsUBUhZJCnHFWvFLMcTKCiDMZbQNMsCSSnZZTvRWSxFQUmZFOjMZYuRGDvHAHwEKXcZE AgICAgICAgICAgICAgICAgICAgICAgICAgICAgICAg SXPrUENfERQxIBWjXB9BZXDeOHPrMFXrSHErWQAaHRIeSBJzWBQoEUZvJBClCZJkEQCpVLScPBNdEGSp QMXlZLDsBNWwHMZaIKNoGCJvQCKcUVPvBAEtISQlVIMeQWAiKWWcDFEpPSOpZDZaCFMlQHUcXU6EJQMq ICAgICAgICAgICAgICAgICAgICAgICAgICAgICAgIC AgICAgICAgICAgICAgICAgICAgICAgICAgICAgICAgICAgICAgICAgICAgICAgICAgICAgICAgICAgIC CiMYIbCI3NKIEyLCYfOLJzJSXcQZCzIDXcASPfVPQeRGEuNOIwPIEpPDLzWRQjJXTzTDBmKOJkZDTgNC AgICAgICAgICAgICAgICAgICAgICAgICAgICAgICAg CWAiCOGbJQAkOHUgOWDoRI0TOVPsITQdYGTrJJNxAJWuDIUkJSNhRBEtUFOeISJeCZIoQZDcPIAjRIOx FOZbOQBpWUTzMRZxFEMtMDFhDFUmQKFeIDImNZYnFLQpMOFuZDQvIBNsGFGhDZAwXWZcJPAbIRJtOX8X ICAgICAgICAgICAgICAgICAgICAgICAgICAgICAgIC AgICAgICAgICAgICAgICAgICAgICAgICAgICAgICAgICAgICAgICAgICAgICAgICAgICAgICAgICAgIC PnEDVwWPXwBL0SQUYwTEBrUZVsJGAoTUEfBNBkEUBnKPBdAQBzGUQoWXDhXYItPSEsDASsTKElOJSnKO AgICAgICAgICAgICAgICAgICAgICAgICAgICAgICAg GPJsWKXuGTPnEXFpKXOlAOJgIN2TBU76pLMek5D1IYDrBA3uifd/Ar6KPSxcdxOkfCGgUM6FXsIgYA6c xy6CFzMeGW7fja0TSGzAOvZkJ2P1hHMjAZOiYZNZSoXbH33cARqdQs23KYwuDPIzBlVeONl4Ux2KIhRm B9xlLXGqJsT6AOGtWrS2OSEePzKeNHryLJ2Zr2QbyC AyDQo+Bz8GXB4xp5HtNUdhXXAdPX9wwh7OUDfWGrQfZ9J0jIVpG2J9BKmlPq4BPJFjBEUcTGuuQFQUVU iiST8TAM2kttL4CX3WbOAxFWZqRYCqeQUoXCt2R45maXUzCKxwDK8RJDD+Ingrid+Gh5ZMHPuSWBoMTGkEo GkGFFSNbZoQ07wuEUgNOWyAQHrXCXzEf8XXPCtH4As kgCrbIxkvvAfFCXsXANYUL1LBCcrgcOmyCOmiNwjHA43aYoxKK1BHf2WKxBoWF9dmf6BiXFkOv2IGSTu Gq5BTOPbBWLpYYNcZWX6KAVpSyGmPQvwOBCsLDFhROU5QRTwSKRtAQ8FYgSaPFCrWUinLYGyEYCaPSEx ry1YXBUsHUXkMPg6VDBhIGEaNWUfJJrqOHXgHOFyLP fkZAFkHYIkPK5OJyTeDITqXZNdINOsXTHzKVDfjw4ZBGOzFNWxUdMuIITcHNXdPYQjIDdnNCQhPCW1LG F4CIDnXAIjZX1NIcKtENBzKHSgMtcaRRZsPBEwye6BZOKgKQKrFDM4PKErHZTaAJVyKXibGXTaENL2ZY x9LZJvXPTlQZ4MUqImKKBkQJK9OvGqKTRbWGHiqr2G GDYoRZZzDcFmWQRsHXOmVBFbNKsrKSTyPLM7ILP1UWVcKKIiYW8OAqQjOLSkKEorUoQdUWJeTVOaer0I HXYvEEQmNxw9IqGsIKHlGEUhXXshGWCnCUQ9NBdzQPLuDIVcOG1UTpVnWIGpERuvHvmwTWSpZKAixg6Q ZMNcYFAuZQK4YPQlKYCoBXWyWLrpDSEbOLP2GPd0OF SqAQJrTP2BKvPiZDNoMAz9JSjxBBXtHQWejs9QRJLxLBYeQWz5RiJnLSHzLCXoYKl9gdZauRGtDHh4WS 4WT9CysmKkSkFWPb1Bj317MWMhCNPuWb1XR8thIm0iOQUlSETMOq5GNCy7XdGdJFEqQaKmOKYiW6KiAh BkXUUeLwazTuI2YJaiLXL+SVjcC4C8D5MuPTTdKIC1 ZOP0UpVgVJXaXOAqPMX0ZFJ7Le8bYLZIEk8+BAhhpJCgrWfgBDHAVtW8YZFsDEvaLLGMIb6T ID Date Data Source [id number] 04/15/2020 11:11:00 [place] [address] Patient Name: Ursula Celeste Exam Date: 04/15/20 [...] interpretation performed at Dr. Bong Winters Breast [facility] . End of diagnostic report: [id number] Signed: Jarod Crockett MD 04/16/20 0934 Interpreted by: Jarod CrockettTranscribed by: Jarod Crockett Name Value Range Interpretation Code Description Data Tere rce(s) Supporting Document(s) ID Date Data Source [id number] 04/05/2020 11:07:00 AM EDT [facility] ([facility]) Name Value Range Interpretation Code Description Data Tere rce(s) Supporting Document(s) Surgical pathology study Laboratory test result [facility] ([facility]) FINAL DIAGNOSIS A - Stomach, antrum, biopsy: [...] M.D. 04/06/2020 1149 ID Date Data Source [id number] 04/02/2020 12:30:00 PM EDT [facility] Name Value Range Interpretation Code Description Data Tere rce(s) Supporting Document(s) SARS coronavirus 2 RNA [facility] This lab was ordered by [facility] and reported by [facility]. ID Date Data Source [id number] 11/24/2019 04:00:00 PM EST [facility] ([facility]) Name Value Range Interpretation Code Description Data Tere rce(s) Supporting Document(s) Reported Physicians See Note Reported Physicians [place] ([facility]) Note: Reported Physicians:Ordering: Sonia Weeks LAttending: Sonia Weeks ID Date Data Source [id number] 11/24/2019 04:00:00 PM EST [facility] Name Value Range Interpretation Code Description Data Tere rce(s) Supporting Document(s) H pylori IgA Ab,S <9.0 units H pylori IgA Ab,S [facility] Note: N egative <9.0 Equivocal 9.0 - 11.0 Positive >11.0Responsible Observer: H pylori IgA Ab H pylori IgA Ab,S [id number] 800.5490 (A) H pylori IgM Ab,S <9.0 units H pylori IgM Ab,S [place] ([facility]) Note: N egative <9.0 Equivocal 9.0 - 11.0 Positive >11.0 This test was developed and its performance characteristics determined by [facility]. It has not been cleared or approved by the Food and Drug Administration. Performed at: - [facility] [address] [id number] [employer] Operator: Marcia Bennett MD, Phone: [phone] Observer: H pylori IgM Ab H pylori IgM Ab,S [id number] 800.5495 (A) H pylori IgG Ab,S 0.45 H pylori IgG Ab,S [facility] ([facility]) Note: Result Units: Index Value Negative <0.80 Equivocal 0.80 - 0.89 Positive >0.89Responsible Observer: H pylori IgG Ab H pylori IgG Ab,S [id number] 800.5486 (A) ID Date Data Source [id number] 11/24/2019 04:00:00 PM EST LAD[facility] ([facility]) Name Value Range Interpretation Code Description Data Tere rce(s) Supporting Document(s) LIPASE 28 U/L Normal LIPASE [facility] Note: Responsible Observer: LIP LIPASE 300.4950 (A) ID Date Data Source [id number] 11/24/2019 04:00:00 PM EST [facility] ([facility]) Name Value Range Interpretation Code Description Data Tere rce(s) Supporting Document(s) Albumin/Globulin [Mass Ratio] in Amniotic fluid 2.0 G/DL Normal ALB/GLOB RATIO [facility] ([facility]) Note: Responsible Observer: A/G RATIO AL B/GLOB RATIO 300.4100 (A) Alkaline phosphatase isoenzyme [Units/volume] in Serum or Plasma 63 U/L Normal ALKALINE PHOSPHATASE [facility] ([facility]) Note: Responsible Observer: ALK PHOS ALK BERNADETTE PHOSPHATASE 300.3110 (A) Albumin [Mass/volume] in Synovial fluid 4.5 G/DL Normal ALBUMIN [facility] ([facility]) Note: Responsible Observer: ALB ALBUMIN 300.3900 (A) Aspartate aminotransferase [Enzymatic activity/volume] in Serum or Plasma 20 U/L Normal AST [facility] ([facility]) Note: Responsible Observer: AST/SGOT AST 300.3050 (A) Alanine aminotransferase [Enzymatic activity/volume] in Seru m or Plasma 25 U/L Normal ALT [facility] ([facility]) Note: Responsible Observer: ALT/SGPT ALT 300.3100 (A) Bilirubin.total [Mass/volume] in Serum or Plasma 0.3 MG/DL Normal BILIRUBIN,TOTAL [facility] ([facility]) Note: Responsible Observer: TOTAL BILI T OTAL BILIRUBIN 300.2700 (A) Urea nitrogen/Creatinine [Mass Ratio] in Serum or Plasma 20 Normal BUN/CREAT RATIO [place] ([facility]) Note: Responsible Observer: BUN/CREAT RA [place] BUN/CREAT RATIO 300.0450 (A) BLOOD UREA NITRO 14 MG/DL Normal BLOOD UREA NITRO [facility] ([facility]) Note: Responsible Observer: BUN BLOOD UR EA NITROGEN 300.0350 (A) CA 9.2 MG/DL Normal CA [facility] ([facility]) Note: Responsible Observer: CA CALCIUM 300.2200 (A) Chloride [Moles/volume] in Serum, Plasma or Blood 105 MEQ/L Normal CHLORIDE [facility] ([facility]) Note: Responsible Observer: CL CHLORIDE 300.0200 (A) Carbon dioxide, total [Moles/volume] in Serum or Plasma 25 MEQ/L Normal CARBON DIOXIDE [facility] ([facility]) Note: Responsible Observer: CO2 CARBON D IOXIDE 300.0250 (A) Creatine/Creatinine [Mass Ratio] in Urine 0.7 MG/DL Melissa l CREATININE [facility] ([facility]) Note: Responsible Observer: CREAT MALAIKA NINE 300.0400 (A) GFR 88.6 ML/MIN GFR [facility] ([facility]) Note: Stage G2 - Mildly decreased kidne [...] Blood 14 Normal ANION GAP [facility] ([facility]) Note: Responsible Observer: ANION GAP AN ION GAP 300.0300 (A) Globulin [Mass/volume] in Serum by calculation 2.2 G/DL Normal GLOBULIN [facility] ([facility]) Note: Responsible Observer: GLOB GLOBULI N 300.4050 (A) Glucose [Presence] in Urine 85 MG/DL Normal GLUCOSE GR [place] ([facility]) Note: Responsible Observer: GLU GLUCOSE 300.0500 (A) Potassium [Mass/volume] in Blood 4.0 MEQ/L Normal POT ASSIUM [facility] ([facility]) Note: Responsible Observer: K POTASSIUM 300.0150 (A) Protein [Mass/volume] in Synovial fluid 6.7 G/DL Normal TOTAL PROTEIN [facility] ([facility]) Note: Responsible Observer: TP TOTAL PRO TEIN 300.3750 (A) Sodium [Moles/volume] in Serum, Plasma or Blood 140 MEQ/L Normal SODIUM [facility] ([facility]) Note: Responsible Observer: NA SODIUM 3 00.0100 (A) ID Date Data Source [id number] 11/24/2019 04:00:00 PM EST [facility] ([facility]) Name Value Range Interpretation Code Description Data Tere rce(s) Supporting Document(s) BASO # (AUTO) 0.04 3/uL Normal BASO # (AUTO) [facility] Note: Responsible Observer: BASO # (AUTO ) BASO # (AUTO) 100.1500 (A) BASO % (AUTO) 0.5 % Normal BASO % (AUTO) [facility] ([facility]) Note: Responsible Observer: BASO % (AUTO ) BASO % (AUTO) 100.1250 (A) GRAN # (AUTO) 4.30 3/uL Normal GRAN # (AUTO) [facility] ([facility]) Note: Responsible Observer: GRAN # (AUTO ) GRAN #(AUTO) 100.1325 (A) EOS % (AUTO) 1.9 % Normal EOS % (AUTO) [facility] Note: Responsible Observer: EOS % (AUTO) EOS % (AUTO) 100.1200 (A) EOS # (AUTO) 0.14 3/uL Normal EOS # (AUTO) [facility] Note: Responsible Observer: EOS # (AUTO) EOS # (AUTO) 100.1450 (A) GRAN % (AUTO) 57.2 % Normal GRAN % (AUTO) [facility] ([facility]) Note: Responsible Observer: GRAN % (AUTO ) GRAN % (AUTO) 100.1000 (A) Hemoglobin [Mass/volume] in Blood 14.4 G/DL Normal HE MOGLOBIN [facility] ([facility]) Note: Responsible Observer: HGB HEMOGLOB IN 100.0300 (A) Hematocrit [Volume Fraction] of Blood by Automated count 42.5 % Normal HEMATOCRIT [facility] ([facility]) Note: Responsible Observer: HCT HEMATOCR IT 100.0400 (A) IG % (AUTO) 0.1 % IG % (AUTO) LADI ([facility]) Note: Responsible Observer: IG % (AUTO) IG % (AUTO) 100.1255 (A) IG # (AUTO) 0.0 3/uL IG # (AUTO) LADI ([facility]) Note: Responsible Observer: IG # (AUTO) IG # (AUTO) 100.1260 (A) LYMPH % (AUTO) 30.9 % Normal LYMPH % (AUTO) [facility] ( [facility]) Note: Responsible Observer: LYMPH % (AUT O) LYMPH % (AUTO) 100.1100 (A) Erythrocyte mean corpuscular hemoglobin [Entitic mass] by Automated count 31.9 PG Normal MCH [facility] ([facility]) Note: Responsible Observer: MCH MCH 100 .0600 (A) LYMPH # (AUTO) 2.3 k/uL Normal LYMPH # (AUTO) [facility] ( [facility]) Note: Responsible Observer: LYMPH # (AUT O) LYMPH # (AUTO) 100.1350 (A) MONO # (AUTO) 0.71 k/uL Normal MONO # (AUTO) [facility] ([facility]) Note: Responsible Observer: MONO # (AUTO ) MONO # (AUTO) 100.1400 (A) Erythrocyte mean corpuscular hemoglobin concentration [Mass/volume] by Automated count 33.9 G/DL Normal MCHC [place] ([facility]) Note: Responsible Observer: MCHC MCHC 1 00.0650 (A) Erythrocyte mean corpuscular volume [Entitic volume] by Auto mated count 94.0 FL Normal MCV [place] ([facility]) Note: Responsible Observer: MCV MCV 100 .0550 (A) Erythrocytes [#/volume] in Blood by Automated count 4.52 6/uL Normal RED BLOOD COUNT [place] ([facility]) Note: Responsible Observer: RBC RED BLOO D COUNT 100.0250 (A) Platelets [#/volume] in Plasma by Automated count 342 3/uL Normal PLATELET COUNT [place] ([facility]) Note: Responsible Observer: PLT PLATELET COUNT 100.0850 (A) MPV 10.6 FL Normal MPV [facility] ([facility]) Note: Responsible Observer: MPV MPV 100 .0950 (A) MONO % (AUTO) 9.4 % Normal MONO % (AUTO) [facility] ([facility]) Note: Responsible Observer: MONO % (AUTO ) MONO% (AUTO) 100.1150 (A) Leukocytes [#/volume] in Blood by Automated count 7.52 3/uL Normal WHITE BLOOD COUNT [place] ([facility]) Note: Responsible Observer: WBC WHITE BL OOD COUNT 100.0150 (A) Erythrocyte distribution width [Ratio] by Automated count 11.9 % Normal RDW [place] ([facility]) Note: Responsible Observer: RDW RDW 100 .0700 (A) ID Date Data Source [id number] 11/24/2019 05:37:00 PM [facility] Name Value Range Interpretation Code Description Data Tere rce(s) Supporting Document(s) WHITE BLOOD COUNT 7.52 10^3/uL 4.00-10.50 [facility] RED BLOOD COUNT 4.52 10^6/uL 3.90-5.20 N [facility] HEMOGLOBIN 14.4 G/DL 11.5-15.6 [facility] HEMAT[facility]CRIT 42.5 % 35.0-46.0 [facility] MCV 94.0 FL 80.0-100.0 [facility] MCH 31.9 PG 27.0-34.0 [facility] MCHC 33.9 G/DL 32-36 [facility] RDW 11.9 % 11.5-14.5 [facility] PLATELET COUNT 342 10^3/uL 130-400 [facility] MPV 10.6 FL 8.7-13.2 [facility] GRAN % (AUTO) 57.2 % 42.0-75.0 [facility] LYMPH % (AUTO) 30.9 % 20.0-51.0 [facility] MONO % (AUTO) 9.4 % 2.0-15.0 [facility] EOS % (AUTO) 1.9 % 0.0-11.0 [facility] BASO % (AUTO) 0.5 % 0.0-2.0 [facility] IG % (AUTO) 0.1 % 1.00-5.00 [facility] IG # (AUTO) 0.0 10^3/uL <0.5 [facility] GRAN # (AUTO) 4.30 10^3/uL 1.50-6.50 [facility] LYMPH # (AUTO) 2.3 k/uL 1.0-5.0 [facility] MONO # (AUTO) 0.71 k/uL 0.20-1.50 [facility] EOS # (AUTO) 0.14 10^3/uL 0.00-1.10 N [facility] BASO # (AUTO) 0.04 10^3/uL 0.00-0.20 [facility] ID Date Data Source [id number] 11/24/2019 06:03:00 PM EST [facility] Name Value Range Interpretation Code Description Data Tere rce(s) Supporting Document(s) SODIUM 140 MEQ/L 135-145 [facility] POTASSIUM 4.0 MEQ/L 3.5-5.3 [facility] CHLORIDE 105 MEQ/L 94-110 [facility] CARBON DIOXIDE 25 MEQ/L 22-33 [facility] ANION GAP 14 5-16 [facility] BLOOD UREA NITRO 14 MG/DL 7-25 [facility] CREATININE 0.7 MG/DL 0.6-1.4 [facility] GFR 88.6 ML/MIN [facility] Stage [...] 75 years only. BUN/CREAT RATIO 20 8-36 [facility] GLUCOSE 85 MG/DL 70-100 [facility] CA 9.2 MG/DL 8.7-10.5 [facility] BILIRUBIN,TOTAL 0.3 MG/DL 0.1-1.3 [facility] AST 20 U/L 5-40 [facility] ALT 25 U/L 5-48 [facility] ALKALINE PHOSPHATASE 63 U/L 40-140 [facility] TOTAL PROTEIN 6.7 G/DL 5.9-8.3 [facility] ALBUMIN 4.5 G/DL 3.0-5.1 [facility] GLOBULIN 2.2 G/DL 1.5-3.5 [facility] ALB/GLOB RATIO 2.0 G/DL 1.0-2.7 [facility] ID Date Data Source [id number] 11/27/2019 07:26:00 AM [facility] Name Value Range Interpretation Code Description Data Tere rce(s) Supporting Document(s) H pylori IgG Ab,S 0.45 0.00-0.79 [facility] h Result Units: Index Value Negative <0.80 Equivocal 0.80 - 0.89 Positive >0.89 H pylori IgA Ab,S <9.0 units 0.0-8.9 [facility] Negativ e <9.0 Equivocal 9.0 - 11.0 Positive >11.0 H pylori IgM Ab,S <9.0 units 0.0-8.9 [facility] Negativ e <9.0 Equivocal 9.0 - 11.0 Positive >11.0 This test was developed and its performance characteristics determined by [facility]. It has not been cleared or approved by the Food and Drug Administration. Performed at: RN - [facility] [address] [id number] [employer] Operator: Marcia Bennett MD, Phone: [phone] ID Date Data Source [id number] 11/24/2019 06:03:00 PM EST [facility] Name Value Range Interpretation Code Description Data Tere rce(s) Supporting Document(s) LIPASE 28 U/L 6-51 N [facility] Procedure Social History Code Duration Value Status Description Data Source(s ) Smoking 08/27/2020 12:00:00 AM EST Former smoker completed Former smoker [facility] ([facility]) Smoking 08/26/2020 12:00:00 AM EST Ex-smoker (finding) complet ed Ex-smoker (finding) [place] ([facility]) Smoking 05/01/2020 12:00:00 AM EDT Patient is a former smoker completed Patient is a former smoker [facility]) Smoking 03/09/2020 12:00:00 AM EDT Ex-smoker (finding) complet ed Ex-smoker (finding) [place] ([facility]) Smoking 01/14/2020 12:00:00 AM EDT Ex-smoker (finding) complet ed Ex-smoker (finding) [place] ([facility]) Smoking 11/24/2019 12:00:00 AM EST Ex-smoker (finding) complet ed Ex-smoker (finding) [place] ([facility]) Vital Signs ID Date Data Source [id number] Name Value Range Interpretation Code Description Data Source(s) PhenX - pain, abdominal - type and intensity protocol 2 2 [facility] ([facility]) pt denies any other vitals.SprinsLPN Body temperature 97.5 [degF] 97.5 [degF] [facility] ([facility]) pt denies any other vitals.SprinsLPN Body mass index (BMI) [Ratio] 28.1 kg/m2 28.1 k g/m2 [facility] ([facility]) Body height 63 [in_i] 63 [in_i] [facility]) 5'3" Body weight 158.44 [lb_av] 158.44 [lb_av] [facility] ([facility]) Body temperature 98.4 [degF] 98.4 [degF] [facility]) Oxygen saturation in Arterial blood by Pulse oximetry 98 % 98 % [facility] ([facility]) Heart rate 71 /min 71 /min [facility] ([facility]) Diastolic blood pressure 86 mm[Hg] 86 mm[Hg] [facility]) Systolic blood pressure 149 mm[Hg] 149 mm[Hg] [facility]) Body weight 78.643 kg 78.643 kg [facility] ([facility]) Body mass index (BMI) [Ratio] 30.7 kg/m2 30.7 k g/m2 [facility] Heart rate 62 /min 62 /min [facility] Diastolic blood pressure 86 mm[Hg] 86 mm[Hg] [facility]) Systolic blood pressure 129 mm[Hg] 129 mm[Hg] [facility] Body weight 173.38 [lb_av] 173.38 [lb_av] [facility] T ([facility]) Temp 97.8 Body height 63 [in_i] 63 [in_i] [facility] 5'3" PhenX - pain, abdominal - type [...] temperature 95.4 [degF] 95.4 [degF] [facility] Weight and Temperature obtained by the p atient from home today.Pain assessmend done with the patient over the phone. PLewislPN Body mass index (BMI) [Ratio] 32.2 kg/m2 32.2 k g/m2 [facility] ([facility]) Body height 63 [in_i] 63 [in_i] [facility] ([facility]) 5'3" Body weight 182.00 [lb_av] 182.00 [lb_av] MED[facility] T ([facility]) Body temperature 97.9 [degF] 97.9 [degF] [facility] ([facility]) Oxygen saturation in Arterial blood by Pulse oximetry 98 % 98 % [facility] ([facility]) Respiratory rate 18 /min 18 /min [facility] ( [facility] Heart rate 83 /min 83 /min [facility] ([facility]) Diastolic blood pressure 100 mm[Hg] 100 mm[Hg] [facility] ([facility]) Systolic blood pressure 158 mm[Hg] 158 mm[Hg] M EDENT ([facility]) PhenX - pain, abdominal - type and intensity protocol 0 0 [facility] ([facility]) Inhaled oxygen concentration 21 % 21 % [facility] ([facility]) Inhaled oxygen flow rate 0 L/min 0 L/min [facility] ([facility]) Oxygen saturation in Arterial blood by Pulse oximetry 98 % 98 % [facility] ([facility]) PhenX - pain, abdominal - type and intensity protocol 2 2 [facility] ([facility]) Body surface area Derived from formula 1.83 m2 1.83 m2 [facility] ([facility]) Body mass index (BMI) [Ratio] 31.9 kg/m2 31.9 k g/m2 [facility] ([facility]) Body weight 177.0125 [lb_av] 177.0125 [lb_av] G REENWAY ([facility]) Body height 62.5 [in_i] 62.5 [in_i] [facility]I ([facility]) Body temperature 97.9 [degF] 97.9 [degF] [facility] ([facility]) Respiratory rate 18 /min 18 /min [facility] ([facility]) Heart rate rhythm 1 1 [place] ([facility]) Heart rate 70 /min 70 /min [facility] ([facility]) Diastolic blood pressure 90 mm[Hg] 90 mm[Hg] L[facility] ([facility]) Systolic blood pressure 138 mm[Hg] 138 mm[Hg] G REENWAY ([facility]) Diastolic blood pressure 83 mm[Hg] 83 mm[Hg] eCW1 ([facility]) Systolic blood pressure 186 mm[Hg] 186 mm[Hg] e CW1 ([facility]) Body temperature 97.2 [degF] 97.2 [degF] eCW1 ( [facility]) Respiratory rate 18 /min 18 /min eCW1 ([facility]) Heart rate 69 /min 69 /min eCW1 ([facility]) Body mass index (BMI) [Ratio] 31.24 kg/m2 31.24 kg/m2 eCW1 ([facility]) Body height [in_us] eCW1 ([facility]) Body weight Measured 182 [lb_av] 182 [lb_av] eC W1 ([facility]) Patient Treatment Plan of Care Planned Activity Planned Date Details Description Data Source (s) Levothyroxine Sodium 0.137 MG Oral Tablet [Synthroid] 08/13/2020 12:00:00 AM [facility] ([facility]) Permethrin 50 MG/ML Topical [facility] Mupirocin 0.02 MG/MG Topical Ointment 01/14/2020 12:00:00 AM EDT [place] ([facility]) Levothyroxine Sodium 0.137 MG Oral Tablet [Synthroid] [facility]2019 [facility] Ondansetron 8 MG Disintegrating Oral Tablet 11/26/2019 12:00:00 AM EST [place] ([facility]) Omeprazole 40 MG Delayed Release Oral Capsule 11/24/2019 12:00:00 A M [facility] ([facility]) Ranitidine 75 MG Oral Tablet [Zantac] 11/09/2019 12:00:00 AM EST [facility] ([facility]) Ibuprofen 600 MG Oral Tablet 10/07/2019 12:00:00 AM EST [facility] ([facility]) Ibuprofen 600 MG Oral Tablet 09/05/2019 12:00:00 AM EST [facility] ([facility]) Levothyroxine Sodium 0.137 MG Oral Tablet [[facility]throid] [facility]
[2020-11-17] MEDS ORDERED: NAPR-837 PO (16:45)
--- NOTE | 2020-11-17 17:10 | REP ---
INDICATION: painover vertebral spine, reaching 2 days ago at work. COMPARISON: None. TECHNIQUE: Five views FINDINGS: AP view shows pedicles spinous processes and vertebral body heights intact. There is sacralization of the transverse process of L5 on the right with anomalous articulation with the right sacral ala of S1. Facet arthropathy at L5-S1. There is disc space narrowing at L5-S1 and no compression deformity or destructive lesion. Marginal osteophytes are seen greatest at L5-S1. There is no spondylolysis or spondylolisthesis. SI joints symmetric. 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 No other significant or acute finding. <Electronically signed by Eduardo Shane > 11/17/20 [id number]
[2020-11-17 17:20] VITALS: BP 165/90
== END 2020-11-17 17:21 | disposition home or self-care (01) ==
LOC: M ED 12:36
DX: M54.5 Low back pain (principal); E03.9 Hypothyroidism, unspecified; Z79.890 Hormone replacement therapy; Z88.0 Allergy status to penicillin; Z91.018 Allergy to other foods; Z87.891 Personal history of nicotine dependence

== ENCOUNTER 2021-03-16 14:08 | Emergency (ER) | payer OTHER ==
[~2021-03-16] VITALS: Ht 160 cm; Wt 77.5 kg
[~2021-03-16 14:08] MED LIST changes: +NAPR-837 PO
[2021-03-16] MEDS ORDERED: KETO10TAB PO (17:51)
[2021-03-16] MEDS ORDERED: METH-1164 PO (17:51)
[2021-03-16 18:18] VITALS: BP 152/98
== END 2021-03-16 18:33 | disposition home or self-care (01) ==
LOC: M ED 14:08
DX: S39.012A Strain of muscle, fascia and tendon of lower back, initial encounter (principal); I10 Essential (primary) hypertension; X58.XXXA Exposure to other specified factors, initial encounter; Y92.009 Unspecified place in unspecified non-institutional (private) residence as the place of occurrence of the external cause; Y93.89 Activity, other specified; Y99.9 Unspecified external cause status; E03.9 Hypothyroidism, unspecified; K21.9 Gastro-esophageal reflux disease without esophagitis; R51.9 Headache, unspecified; F17.200 Nicotine dependence, unspecified, uncomplicated; Z79.899 Other long term (current) drug therapy; Z88.0 Allergy status to penicillin; Z91.018 Allergy to other foods

== ENCOUNTER → 2021-10-14 | Outpatient (CLI) | payer OTHER ==
[~2021-10-14] MED LIST changes: +KETO10TAB PO; +METH-1164 PO
== END ==
LOC: M RAD 14:40
PROVIDERS: ATTEND Nurse Practitioner Family
DX: I77.9 Disorder of arteries and arterioles, unspecified (principal); E78.49 Other hyperlipidemia

== ENCOUNTER 2022-02-08 20:30 | Emergency (ER) | payer OTHER ==
[~2022-02-08] VITALS: Ht 157.5 cm; Wt 81.1 kg
[2022-02-08 20:30] VITALS: BP 187/107
== END 2022-02-08 21:00 | disposition left against medical advice (07) ==
LOC: M ED 20:30
DX: Z53.21 Procedure and treatment not carried out due to patient leaving prior to being seen by health care provider (principal)

== ENCOUNTER 2022-02-10 10:44 | Emergency (ER) | payer OTHER ==
[~2022-02-10] VITALS: Ht 157.5 cm; Wt 79.5 kg
[2022-02-10] MEDS ORDERED: PROB250C PO (11:01)
[2022-02-10] MEDS ORDERED: NAPR-885 (11:01)
[2022-02-10] MEDS ORDERED: OMEP-173 (11:01)
[2022-02-10] MEDS ORDERED: FLUTISP (11:01)
[2022-02-10 11:59] LABS: BASO % 0.5 % (0.0-1.0); EOS # 0.2 10^3/uL (0.0-0.5); EOS % 3.8 % (0.0-3.0); HEMATOCRIT 43.7 % (36.0-47.0); HEMOGLOBIN 14.4 g/dl (12.0-15.5); LYMPH # 2.1 10^3/uL (1.5-5.0); LYMPH % 33.3 % (24.0-44.0); MEAN CORPUSCULAR HEMOGLOBIN 31.5 pg (27.0-33.0); MEAN CORPUSCULAR VOLUME 95.6 fl (80.0-96.0); MONO # 0.7 10^3/uL (0.0-0.8); MONO % 10.6 % (2.0-8.0); NEUTROPHILS # 3.3 10^3/uL (1.5-8.5); NEUTROPHILS % 51.6 % (36.0-66.0); PLATELET COUNT, AUTOMATED 326 10^3/uL (150-450); RED BLOOD COUNT 4.57 10^6/uL (4.00-5.40); WHITE BLOOD COUNT 6.4 10^3/uL (4.0-10.0)
[2022-02-10 12:25] LABS: ALBUMIN 3.5 GM/DL (3.2-5.2); BILIRUBIN,DIRECT 0.1 MG/DL (0.0-0.2); BILIRUBIN,TOTAL 0.4 MG/DL (0.2-1.0); TOTAL PROTEIN 7.4 GM/DL (6.4-8.2)
[2022-02-10] MEDS ORDERED: GI COCKTAIL 50ML BTL(HYOSCYAMINE/MAALOX/LIDOCAINE VISCOUS)(1:3:1) PO ONE (12:50)
[2022-02-10] MEDS ORDERED: MIRA3350 PO (14:51)
[2022-02-10] MEDS ORDERED: PROT1TAB2 PO (14:51)
[2022-02-10] MEDS ORDERED: CARA1TAB6 PO (14:51)
[2022-02-10 15:18] VITALS: BP 149/82
== END 2022-02-10 15:20 | disposition home or self-care (01) ==
LOC: M ED 10:44
DX: K21.9 Gastro-esophageal reflux disease without esophagitis (principal); K59.00 Constipation, unspecified; Z88.0 Allergy status to penicillin; Z91.018 Allergy to other foods

== ENCOUNTER → 2022-08-02 | Outpatient (CLI) | payer OTHER ==
[~2022-08-02] MED LIST changes: +CARA1TAB6 PO; +FLUTISP; +MIRA3350 PO; +NAPR-885; +OMEP-173; +PROB250C PO; +PROT1TAB2 PO
[2022-08-02 12:19] LABS: BASO % 0.7 % (0.0-1.0); EOS # 0.2 10^3/uL (0.0-0.5); EOS % 4.9 % (0.0-3.0); HEMATOCRIT 44.9 % (36.0-47.0); HEMOGLOBIN 14.2 g/dl (12.0-15.5); LYMPH # 1.7 10^3/uL (1.5-5.0); LYMPH % 38.6 % (24.0-44.0); MEAN CORPUSCULAR HEMOGLOBIN 30.3 pg (27.0-33.0); MEAN CORPUSCULAR HGB CONC 31.6 g/dl (32.0-36.5); MEAN CORPUSCULAR VOLUME 95.9 fl (80.0-96.0); MONO # 0.5 10^3/uL (0.0-0.8); MONO % 11.9 % (2.0-8.0); NEUTROPHILS % 43.7 % (36.0-66.0); PLATELET COUNT, AUTOMATED 295 10^3/uL (150-450); RED BLOOD COUNT 4.68 10^6/uL (4.00-5.40); WHITE BLOOD COUNT 4.5 10^3/uL (4.0-10.0)
[2022-08-02 13:03] LABS: ALBUMIN 3.4 GM/DL (3.2-5.2); ALT/SGPT 34 U/L (12-78); BILIRUBIN,TOTAL 0.4 MG/DL (0.2-1.0); BLOOD UREA NITROGEN 9 MG/DL (7-18); CALCIUM LEVEL 8.8 MG/DL (8.5-10.1); CARBON DIOXIDE LEVEL 28 MEQ/L (21-32); CHLORIDE LEVEL 107 MEQ/L (98-107); CHOLESTEROL LEVEL 203 MG/DL (<200); CHOLESTEROL RISK RATIO 5.075 (<5); CREATININE FOR GFR 0.57 MG/DL (0.55-1.30); GLOMERULAR FILTRATION RATE > 60.0 (>51); GLUCOSE, FASTING 81 MG/DL (70-100); HDL CHOLESTEROL 40 MG/DL (>40); LDL CHOLESTEROL 135 MG/DL (<100); NON-HDL-C 163 MG/DL; POTASSIUM SERUM 4.8 MEQ/L (3.5-5.1); SODIUM LEVEL 143 MEQ/L (136-145); THYROID STIMULATING HORMONE 0.163 uIU/ML (0.358-3.740); TOTAL PROTEIN 7.2 GM/DL (6.4-8.2); TRIGLYCERIDES LEVEL 141 MG/DL (<150)
[2022-08-02 13:15] LABS: MAU/CREAT RATIO 5.9 MCG/MG (0.0-30.0)
== END ==
LOC: M WUC 08:27
PROVIDERS: ATTEND Nurse Practitioner
DX: E78.5 Hyperlipidemia, unspecified (principal); E03.9 Hypothyroidism, unspecified

== ENCOUNTER → 2022-11-21 | Outpatient (CLI) | payer OTHER | LOC: M WUC 14:40 | PROVIDERS: ATTEND Nurse Practitioner | DX: E03.9 Hypothyroidism, unspecified (principal) ==

== ENCOUNTER → 2023-05-29 | Outpatient (CLI) | payer OTHER ==
[~2023-05-29] MED LIST changes: +FLUT50SP17; -FLUTISP
== END ==
LOC: M WHC 14:32
PROVIDERS: ATTEND Nurse Practitioner
DX: Z12.31 Encounter for screening mammogram for malignant neoplasm of breast (principal)

== ENCOUNTER 2023-12-03 13:10 | Emergency (ER) | payer OTHER ==
[~2023-12-03] VITALS: Ht 157.5 cm; Wt 81.2 kg
[~2023-12-03 13:10] MED LIST changes: -FLUT50SP17; +FLUTISP; +PANT40TA29 PO
[2023-12-03 13:11] VITALS: BP 143/104; TEMP 98; O2SAT 100
[2023-12-03] MEDS: IBUPROFEN 600MG TAB PO ONE (16:45)
[2023-12-03] MEDS ORDERED: IBUP-1022 PO (17:07)
[2023-12-03] MEDS ORDERED: METH-1164 PO (17:07)
[2023-12-03] MEDS ORDERED: PRED20TA PO (17:07)
== END 2023-12-03 17:16 | disposition home or self-care (01) ==
LOC: M ED 13:10
DX: M54.50 Low back pain, unspecified (principal); E03.9 Hypothyroidism, unspecified; K21.9 Gastro-esophageal reflux disease without esophagitis; R51.9 Headache, unspecified; Z88.0 Allergy status to penicillin; Z91.018 Allergy to other foods; Z79.1 Long term (current) use of non-steroidal anti-inflammatories (NSAID); Z79.899 Other long term (current) drug therapy; Z79.52 Long term (current) use of systemic steroids

== ENCOUNTER → 2024-06-02 | Outpatient (CLI) | payer OTHER ==
[~2024-06-02] MED LIST changes: +IBUP-1022 PO; +PRED20TA PO
== END ==
LOC: M WHC 13:41
PROVIDERS: ATTEND Nurse Practitioner
DX: Z12.31 Encounter for screening mammogram for malignant neoplasm of breast (principal); R92.323 Mammographic fibroglandular density, bilateral breasts

== ENCOUNTER 2025-08-03 07:54 | Emergency (ER) | payer OTHER ==
[~2025-08-03] VITALS: Ht 157.5 cm; Wt 80.0 kg
[~2025-08-03 07:54] MED LIST changes: -IBUP-1022 PO; +IBUP600T42 PO; +PANT20TA6 PO; +SYNT125T PO; +THERTAB52 PO
[2025-08-03] MEDS ORDERED: ISOVUE-370 76% 100 ML VIAL As Ordered ONE (09:44)
[2025-08-03 10:13] LABS: BASO # 0.0 10^3/uL (0.0-0.2); BASO % 0.6 % (0.0-1.0); EOS # 0.3 10^3/uL (0.0-0.5); EOS % 4.9 % (0.0-3.0); LYMPH # 2.0 10^3/uL (1.5-5.0); LYMPH % 31.1 % (24.0-44.0); MONO # 0.6 10^3/uL (0.0-0.8); MONO % 9.2 % (2.0-8.0); NEUTROPHILS # 3.5 10^3/uL (1.5-8.5); NEUTROPHILS % 54.0 % (36.0-66.0); PLATELET COUNT, AUTOMATED 295 10^3/uL (150-450)
[2025-08-03 13:45] VITALS: BP 146/80; O2SAT 94
[2025-08-03 14:17] VITALS: TEMP 98.6
== END 2025-08-03 14:19 | disposition home or self-care (01) ==
LOC: M ED 07:54
DX: G43.109 Migraine with aura, not intractable, without status migrainosus (principal); I10 Essential (primary) hypertension; E78.5 Hyperlipidemia, unspecified; Z88.0 Allergy status to penicillin; Z91.018 Allergy to other foods; Z79.899 Other long term (current) drug therapy; Z79.810 Long term (current) use of selective estrogen receptor modulators (SERMs)
CPT/HCPCS: 36415; 70450; 70496; 70498; 70551; 80047; 85025; 85652; 99284; Q9967

== ENCOUNTER → 2025-08-25 | Outpatient (CLI) | payer OTHER ==
[2025-08-25 10:42] LABS: BASO # 0.0 10^3/uL (0.0-0.2); BASO % 0.7 % (0.0-1.0); EOS # 0.3 10^3/uL (0.0-0.5); EOS % 4.4 % (0.0-3.0); LYMPH # 2.0 10^3/uL (1.5-5.0); LYMPH % 35.0 % (24.0-44.0); MONO # 0.6 10^3/uL (0.0-0.8); MONO % 9.9 % (2.0-8.0); NEUTROPHILS # 2.8 10^3/uL (1.5-8.5); NEUTROPHILS % 49.8 % (36.0-66.0); PLATELET COUNT, AUTOMATED 296 10^3/uL (150-450)
[2025-08-25 10:46] LABS: ALT/SGPT 31 U/L (7.0-40); AST/SGOT 29 U/L (<34); CALCIUM LEVEL 9.2 MG/DL (8.5-10.1); CARBON DIOXIDE LEVEL 29 MMOL/L (20-31); CHLORIDE LEVEL 106 MMOL/L (98-107); CHOLESTEROL LEVEL 236 MG/DL (<200); CHOLESTEROL RISK RATIO 4.98 (<5); CREATININE FOR GFR 0.62 MG/DL (0.55-1.30); GLOMERULAR FILTRATION RATE > 90.0 (>51); LDL CHOLESTEROL 162.7 MG/DL (<100); NON-HDL-C 188.7 MG/DL; POTASSIUM SERUM 4.9 MMOL/L (3.5-5.1); SODIUM LEVEL 143 MMOL/L (136-145); TRIGLYCERIDES LEVEL 130 MG/DL (<150)
[2025-08-25 11:06] LABS: CREATININE, URINE 220.8 MG/DL; MALB URINE SIEMENS 11.0 MG/L; MAU/CREAT RATIO 4.9 MCG/MG (0.0-30.0)
== END ==
LOC: M PLALAB 07:41
PROVIDERS: ATTEND Nurse Practitioner
DX: E78.5 Hyperlipidemia, unspecified (principal); I10 Essential (primary) hypertension